=== PATIENT | male | born 1950 | race Caucasian/White ===

== ENCOUNTER 2024-02-05 16:53 | Inpatient (IN) | payer OTHER, SELFPAY ==
[2024-02-05] VITALS (11 sets, daily range): BP systolic 114–157; BP diastolic 51–71; BMI 29.7
--- NOTE | 2024-02-05 15:38 | CON.CAR ---
Addendum entered and electronically signed by Rashid Munroe MD 02/05/24 17:44:
74 year old male with h/o CAD, PCI, DM, HTN, hypercholesterolemia , esophageal ca, and prostate ca wh has had exertional SOB. Patient had increased symptoms and vomiting on Monday and presented to [facility] with NSTMI. Cath today with LM ostial and distal
disease with up to 80% stenosis and rCA 100% occlusion. EF normal. Patient had acute HF during cath. Given lasix and and IABP placed. Now transfer for CABG. Note last plavix given this morning
- continue supportive Tx. ASA, Heparin , IV NTG
- IABP ( site fine and good distal pulses)
- Plavix stopped
- additional assessment by CT surgery for CABG
Original Note:
Consultation
Consultation Request
Date/Time Consultation Requested: 02/05/2024 1645
Date/Time Consultation Performed: 02/05/2024 1645
Requesting Provider: Goran Menon PA-C
Performing Provider: MILTON Belcher for Dr. Munroe
Reason for Consultation: CAD with NSTEMI, left main disease
Medical History
-
Chief Complaint: Chest pain
History of Present Illness:
Joseph Villalta is a 74-year-old male (known to Dr. Degroot, his primary irrigation manager), with coronary artery disease (prior [place]), esophageal cancer, prostate cancer, hypertension, dyslipidemia, and type 2 diabetes mellitus who originally presented to
[facility] with chest pain. This had been ongoing for one week. He had associated nausea, vomiting and diaphoresis. It did not radiate. He was given clopidogrel and taken for cardiac catheterization. He was found to have severe left main disease. IABP
was placed. He has preserved LVEF. He was transferred to [facility] for CT surgery evaluation. He is currently chest pain free. He is not short of breath lying flat in bed.
Past Medical History
Past Medical History: CAD, Cancer (Esophageal), HTN, Hypercholesterolemia and NIDDM
Past Surgical History: Orthopedic and Tonsilectomy
Social History
Tobacco: Former Smoker
Alcohol: None
Drug: None
Personal:
Living: With Family
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
Family History
Family History: Reviewed & Not Pertinent (Father in 60s due to PE. Mother in 40s due to ovarian cancer.)
Review of Systems
-
History Source: Patient
All other systems: Negative unless noted
EENT: No Symptoms
Respiratory: No Symptoms
Cardiac: No Symptoms
Abdomen/GI: No Symptoms
Physical Exam
Physical Exam
General: Well Developed, Well Nourished, No Apparent Distress and Comfortable
HEENT: Normocephalic, Anicteric and Moist Mucous Membranes
Respiratory: Clear, Non Labored Respirations and Other (Supplemental oxygen)
Cardiac: S1/S2 and Other (IABP; peripheral pulses intact)
Breast: Deferred by me
GI: Soft, Non Tender, Non Distended and Normal Bowel Sounds
Rectal: Deferred by Provider
Genito-urinary: No Costovertebral Tender
Musculoskeletal: No Clubbing and No Cyanosis
Skin: Warm and Dry
Neuro: AO x 3
Hematologic/Lymphatic: No Lymphadenopathy
Psych: Calm
Impression / Plan
-
Background: 74M with CAD, NIDDM, hypertension, dyslipidemia, and esophageal cancer who presented to [facility]
Payroll Assistant: Dr. Degroot
CAD with NSTEMI
-Troponin peak 2164 (Troponin I)
-Continue ASA 81 mg daily and heparin drip, he was given clopidogrel
-Continue intravenous nitroglycerin
-Cardiac catheterization with 80% distal left main, ostial LAD 60%, ostial and proximal LCx 50%, RCA 100% with L to R collaterals
-IABP in place with palpable pulses
-CABG eval per CT surgery
Esophageal cancer, did not tolerate Keytruda, completed treatment last month at [facility]
Prior prostate cancer, reports esophageal cancer treatment also treated his prostate cancer
NIDDM, HbA1c pending
CVA, 2016
Dyslipidemia, update fasting lipid panel, goal LDL <55
Data Reviewed
-
Labs: Labs Reviewed by me
Old Records: Reviewed
--- NOTE | 2024-02-05 15:58 | HPS.HSE ---
Family Physician
-
Family Physician: Oliver Lynn
Chief Complaint
-
n/a
History of Present Illness
74 year old male with known CAD with stents (2003, 2006), presented to [facility] emergency room on 02/02 with severe chest pains. ECG with nonspecific ST�T wave changes. Initial troponin was 1912, second troponin was 2164. Patient was
admitted to ICU on IV heparin and nitro glycerin. Patient received prednisone prophylaxis for history of IV dye allergy. Cardiac Cath reported left main and left femoral #40mm IABP was placed for disease burden. Patient developed mild hypoxia
after procedure and received 40 mg of IV Lasix. A Cabezas catheter was placed and patient diuresed 1.6 L of urine. Patient transferred to [facility] on 02/04 via ambulance.
Cardiac Cath (R radial by Dr. Degroot @ [facility]) 02/05/24: report of 80% ostial left main and 100% RCA
TTE 02/03 ([facility]): EF 60-65%. No . trace-mild MR/TR
Medical History
Past Medical History
Past Medical History: Reports CAD (stents 2003, 2006), Cancer (esophageal C/A treated with chemo, immuno and bio therapy @ [place]. Prostate C/A-surveillance), CVA (R ocular 8 years ago-wears glasses), HTN, Hypercholesterolemia, NIDDM (on oral
meds) and [place] (NSTEMI)
Past Surgical History: Reports Orthopedic (left knee replacement and revision) and Other (R rotator cuff repair; B/L cataract extraction; loop recorder 5 years ago; left chest port-last accessed 2 weeks ago)
Social History
Tobacco: Non-smoker
Alcohol: Occasional
Drug: None
Personal:
Living: With Family
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
Family History
Family History: Not pertinent
Allergies / Home Medications
Allergies reflects when Allergies were last updated in [employer].
Home Medications with original date entered in [employer]
Allergy/Medication List:
IV Dye
Review of Systems
-
A 12 point ROS was completed and negative except as noted: No
Constitutional: Reports No Symptoms
EENT: Reports No Symptoms
Respiratory: Reports No Symptoms and Other (no chest radiation)
Cardiac: Reports Chest Pain (currently pain free)
Abdomen/GI: Reports No Symptoms
: Reports Cabezas (placed @ [facility] 02/04)
Musculoskeletal: Reports No Symptoms
Skin: Reports No Symptoms
Neurological: Reports No Symptoms
Endocrine: Reports No Symptoms
Hematologic/Lymphatic: Reports No Symptoms
Psych: Reports No Symptoms
Physical Exam
Physical Exam
General: Well Developed, Well Nourished and No Apparent Distress
HEENT: NormoCephalic, Anicteric, Moist mucous membranes, PERRLA, Nose Appears Normal, Ears Appear Normal and Oxygen (came from [facility] on NRB-O2 sat 96%)
Respiratory: Clear
Cardiac: S1/S2, Regular Rhythm and Other (left chest port; IABP left femoral artery on 1:1 with ECG trigger and adequate augmentation. Left femoral venous sheath with [place] @ 70cm. PA 35/19; CVP 14)
Breast: N/A
GI: Soft, Non Tender, Non Distended, Normal Bowel Sounds and No Hepatosplenomegaly
Rectal: Deferred by Provider
Genito-urinary: Cabezas (inserted 02/04 @ [facility])
Musculoskeletal: No Clubbing, No Cyanosis and No Edema
Skin: Warm and Dry
Neuro: AO x 3, No Motor Deficits and Nonfocal/grossly intact
Hematologic/Lymphatic: No Lymphadenopathy
Psych: Calm and Intact Judgment/Insight
Laboratory Results
-
labs from [facility] reviewed. labs from sent and results pending
Data Reviewed
-
Lab Data: Labs Reviewed by me and Discussed with Physician
Impression/Plan
-
IMPRESSION: 74 year old male transferred to [place] for CABG evaluation after presenting to [facility] ([facility]) on 02/02 with exertional shortness of breath increasing over the past week, and ruled in for NSTEMI. TTE reported normal LVEF
and cath reported ostial left main/3VCAD. Patient developed pulmonary edema in label press operator, requiring NRB to maintain O2 sats>94%, Lasix 40mg IV (with 1.6L U.O), left femoral IABP and Depe[place]. Last Plavix dose was this morning.
PLAN:
# NSTEMI/CAD w/prior stents
- last Plavix dose was this morning (02/04)>CABG date TBD
- routine pre-op testing ordered
- continue IV Heparin/NTG
- IABP 1:1
# T2DM
- hold Metformin 48 hours after cath
- Insulin correctional scale
- 1800cal diabetic diet
- check A1C
# Esophageal cancer
- completed chemo, immuno and biologic therapies at [place]
- no dysphagia per patient
# Prostate cancer
- active surveillance by urology
--- NOTE | 2024-02-05 17:30 | PTCARENOTE ---
Patient received from [facility] by EMS and DEPUTY HARBORMASTER. Patient transferred to bed from stretcher. Turned/repositioned. Old linen removed. Patient connected to the monitor. Lines leveled/zeroed. Heparin gtt received at 1720 units/hr. Nitro gtt received at
10mcgs/min. LFA IABP maintained and changed over to Datascope machine by RN and CNE. LFV sheath maintained. New tubing applied to transduce IABP, PA catheter, and CVP.
--- NOTE | 2024-02-05 18:11 | PTCARENOTE ---
Patient is alert and oriented x4, pleasant. Denies chest pain/discomfort. NSR. HR 80s-90s. BP via LFA IABP 123/52 with LUE BP cuff 115/62, correlating. LFA IABP maintained at 1:1. LFV sheath maintained with swan. PIV x2 maintained. Patient has an
unaccessed port on his LCW from receiving chemotherapy a month or two ago. Palpable pulses. Trace generalized edema. R radial TR band maintained - see post angiography flowsheet for details. Respiratory therapist switched patient over to 6L NC from
NRB. Oxygen saturation 96%. Patient has a moist non-productive occasional cough. Abdomen round, obese. Assist x2 to turn/reposition. Performing admissions screening and medication reconciliation.
[2024-02-05 18:13] LABS: B.E. 2.7 mmol/L; HCO3 25.9 mmol/L (21-28); Ionized Calcium 1.16 mMOL/L (1.15-1.33); O2 Saturation % 97.4 % (94-98); PCO2 34 mmHg (35-48); PO2 74 mmHg (83-108); Potassium 3.7 mMOL/L (3.5-5.1); Sodium 135 mMOL/L (136-145); pH 7.49 (7.35-7.45)
[2024-02-05 18:44] LABS: Glucose - Point of Care 290 mg/dl (70-99)
[2024-02-05 18:48] LABS: % Basophils 0.2 % (0-2); % Immature Granulocytes 0.4 % (0-0.5); % Lymphocytes 9.2 % (20.5-51.1); % Neutrophils 81.2 % (42.2-75.2); Absolute Immature Granulocytes 0.1 10^3/uL (0-0.05); Absolute Lymphocytes 1.5 10^3/uL (1.2-3.4); Absolute Monocytes 1.4 10^3/uL (0.1-0.6); Absolute Neutrophils 12.7 10^3/uL (1.4-6.5); Hematocrit 31.7 % (39.0-52.0); Hemoglobin 10.5 g/dL (13.0-18.0); Mean Corp Hgb Conc. 33.1 g/dL (33.0-37.0); Mean Corpuscular Hgb 29.2 pg (27.0-31.0); Mean Corpuscular Volume 88.1 fL (80.0-94.0); Mean Platelet Volume 9.7 fL (7.4-10.4); Nucleated Red Blood Cells % 0 % (-); Platelet Count 178 10^3/uL (130-400); Red Cell Dist. Width 13.8 % (11.5-14.5); White Blood Cell Count 15.7 10^3/uL (4.8-10.8)
[2024-02-05 19:25] LABS: ALT (SGPT) 24 U/L (0-50); AST (SGOT) 31 U/L (17-59); Albumin 3.2 g/dl (3.5-5.0); Alkaline Phosphatase 118 U/L (38-126); Blood Urea Nitrogen 14 mg/dl (9-20); Calcium 8.7 mg/dl (8.4-10.2); Carbon Dioxide 25 mmol/L (22-30); Chloride 103 mmol/L (98-107); Estimated Creatinine Clearance 92 ml/min; Glucose 225 mg/dl (70-99); Potassium 3.6 mmol/L (3.5-5.1); Sodium 138 mmol/L (135-145); Total Bilirubin 0.7 mg/dl (0.2-1.3); Total Protein 6.3 g/dl (6.3-8.2); eGFR > 60.00
[2024-02-05 19:27] LABS: INR 1.26; PT 15.6 Sec (11.4-14.6)
[2024-02-05 19:36] LABS: APTT > 200 Sec (23.4-35.0)
[2024-02-05] MEDS: KCL 40 MEQ PO (19:51)
[2024-02-05] MEDS: NOVOLOG FLEXPEN-MODERATE RESISTANCE 5 UNITS SC (19:53)
[2024-02-05] MEDS: SENOKOT-S PO (20:16)
--- NOTE | 2024-02-05 20:17 | PTCARENOTE ---
Received patient in stable condition. AAOx4, able to make needs known. SR on tele, IABP in place in L groin, 1:1, no alarms. Continued on nitro, denying CP. PTT came back greater than 200, PA notified and heparin held at 1950, will restart at 2150
per protocol. Cabezas in place, draining clear yellow urine. Patients family at bedside and updated on plan.
[2024-02-05 20:41] LABS: Magnesium 1.9 mg/dl (1.6-2.3)
[2024-02-05] MEDS: ZETIA 10 MG PO (21:28)
[2024-02-05] MEDS: TOPROL XL 100 MG PO (21:28)
[2024-02-05] MEDS: LIPITOR 40 MG PO (21:28)
[2024-02-05] MEDS: NIASPAN TIME RELEASE PO (21:29)
[2024-02-05] MEDS: NITROGLYCERIN PREMIX 250 IV (21:53)
[2024-02-05] MEDS: HEPARIN 25000 UNITS/250 ML IV (21:54)
[2024-02-06] VITALS (25 sets, daily range): BP systolic 90–136; BP diastolic 44–72
[2024-02-06] MEDS: MELATONIN 5 MG PO (00:13)
[2024-02-06] MEDS: TYLENOL 650 MG PO ×4 (00:13→17:58)
--- NOTE | 2024-02-06 00:22 | PTCARENOTE ---
Patient overall assessment unchanged from previous note. Continued on IABP at 1:1, no alarms. Heparin infusion running per protocol, next PTT due at 0400. Nitro infusion running at 5, discussed with PA if able to wean off d/t patient not having CP,
decided to leave on lower dose. TR band with all air removed but band left on d/t PTT being elevated per PA order. Patient having back pain r/t bed rest, given tylenol and melotonin PRN to assist with patient getting rest.
--- NOTE | 2024-02-06 01:11 | PTCARENOTE ---
TR band removed, 2x2 g[address]. positive pulses, no numbness or tingling reported by patient. will continue to assess and monitor.
--- NOTE | 2024-02-06 03:28 | W.PN.CT ---
Today's Communication / Plan
-
Plan:
-No major issues overnight. Hemodynamically and neurologically intact
-Maintain IABP @ 1:1, monitor site for bleed/hematoma
-Maintain bed rest
-Maintain buckner catheter
-Cont. current meds (Heparin gtt, NTG gtt, Toprol XL, Lipitor, Zetia)
-Metformin is on hold given recent cath
-Consider Lasix, pro-BNP 1819, 2+ LE pitting edema
-Replete K, 3.6
-Plavix washout, last dose AM of 02/05/24
-Ongoing preop workup
-For CABG following Plavix washout
Assessment / Plan
-
Assessment:
-Multivessel CAD (including occluded RCA, 80% ostial/distal LM)
-Hx CAD S/P PCI with stents (2003, 2006)
-NSTEMI @ [facility] (peak trop 2164)
-[place]
-Brilinta washout (Last dose AM of 02/05/24)
-S/P IABP @ [facility]
-Acute diastolic CHF
-LVEF 60-65% per TTE 10/07/22 @ [facility]
-No significant valvular disease
-Hx CVA (2015)
-HTN
-Hyperlipidemia
-T2DM (A1C pending)
-Class 1 obesity (BMI 30)
-Esophageal Ca (completed chemo 12/2023, denies dysphagia)
-Prostate Ca (under surveillance)
-Former tobacco use (1.5 pk/day x 25 yrs; quit 30 yrs ago)
-LE 2+ pitting edema (states post chemo therapy)
-Ambulatory dysfunction post chemotherapy
-S/P Left teena cath
-S/P L TKA with revision
-S/P R rotator cuff repair
-S/P B/L cataracts
-S/p Loop recorder (2019)
Discussed patient care with: Cardiology, Nursing, Respiratory Therapy, Pharmacy and Care Team
Subjective
-
Date of Service: February 06, 2024
Pt denies chest pain overnight, currently on 5 mcg of NTG gtt
Objective Data
-
Lab Results
02/05/24 18:39
02/05/24 18:39
PT 15.6 Sec (11.4-14.6) H 02/05/24 18:39
INR 1.26 02/05/24 18:39
APTT > 200 Sec (23.4-35.0) H* 02/05/24 18:39
Vital Signs
Vital Signs
Temp Pulse Resp BP Pulse Ox
97.8 F 84 18 102/66 94
02/06/24 03:00 02/06/24 03:00 02/06/24 03:00 02/06/24 03:00 02/06/24 03:00
CT Intake/Output/Weight
02/05/24 02/05/24 02/06/24
06:59 18:59 06:59
Intake Total 28.7 / 238.4 209.7 / 238.4
Output Total 800 / 1825 1025 / 1825
Balance -771.3 / -1586.6 -815.3 / -1586.6
SaO2: 94 (4L)
Physical Exam
-
General: Awake, Oriented and AOx3
Cardiovascular: Regular rate & rhythm, No Murmurs, No Rub (has IABP @ 1:1) and No Gallop
Respiratory: Decreased Breath Sounds
Incision: Clean, Dry, Intact and Dressing Intact
Extremities: Edema +2 (LE > on R)
Data Reviewed
-
Lab Results: Results Reviewed
Medications: Active Meds Reviewed
Chest X-Ray: Report Reviewed and Image Reviewed
ECG: Report Reviewed and Image Reviewed
[2024-02-06 04:03] LABS: Hematocrit 29.3 % (39.0-52.0); Hemoglobin 9.4 g/dL (13.0-18.0); Mean Corp Hgb Conc. 32.1 g/dL (33.0-37.0); Mean Corpuscular Hgb 28.8 pg (27.0-31.0); Mean Corpuscular Volume 89.9 fL (80.0-94.0); Mean Platelet Volume 9.4 fL (7.4-10.4); Platelet Count 146 10^3/uL (130-400); Red Blood Cell Count 3.26 10^6/uL (4.70-6.10); White Blood Cell Count 11.4 10^3/uL (4.8-10.8)
--- NOTE | 2024-02-06 04:10 | PTCARENOTE ---
Patient overall status unchanged from previous assessment. Patient continued on IABP, 1:1. AM labs sent. Heparin infusion continuing to run per protocol, awaiting PTT results from 0400. Patient maintaining extremity. CHG complete. able to make needs
known.
[2024-02-06 04:15] LABS: APTT 45.8 Sec (23.4-35.0)
[2024-02-06 04:35] LABS: Blood Urea Nitrogen 18 mg/dl (9-20); Calcium 8.3 mg/dl (8.4-10.2); Carbon Dioxide 26 mmol/L (22-30); Chloride 105 mmol/L (98-107); Estimated Creatinine Clearance 92 ml/min; Glucose 211 mg/dl (70-99); Magnesium 1.9 mg/dl (1.6-2.3); Potassium 3.6 mmol/L (3.5-5.1); Sodium 136 mmol/L (135-145); eGFR > 60.00
[2024-02-06 04:38] LABS: NT-proBNP 1820 pg/ml
[2024-02-06] MEDS: KCL 40 MEQ PO (05:10)
--- NOTE | 2024-02-06 06:08 | PTCARENOTE ---
PTT back at 45.8, per protocol heparin up to 1720 u/hr. PTT placed for 1030
--- NOTE | 2024-02-06 07:48 | W.PN.CD ---
Today's Communication / Plan
-
Wean IABP and nitro.
Hold clopidogrel.
CABG planning.
Impression / Plan
-
Impression/Plan: 74 y/o male with HTN, HLD, NIDDM, treated esophageal CA and known CAD with prior PCI transferred from [facility] with NSTEMI after coronary angiography demonstrated surgical disease.
#CAD with NSTEMI
-Troponin I peaked at 2164 at [facility].
-Continue ASA 81 mg daily and heparin drip.
-Last dose of clopidogrel on 02/05/2024.
-Cardiac catheterization with 80% distal left main, ostial LAD 60%, ostial and proximal LCx 50%, RCA 100% with L to R collaterals.
-CABG eval per CT surgery.
-Wean IABP: set 2:1 for one hour, if tolerates set 3:1 for one hour. If he tolerates 3:1, stop heparin gtt and put IABP back to 1:1. When PTT is normal, pull IABP. When hemostasis achieved, restart heparin gtt without bolus.
#Flash pulmonary edema
-Acute, occurred during catheterization yesterday.
-Started on IABP and diuresis.
-Drewsey-Johny catheter placed.
-Requiring 4LNC.
-CI 2.37, PA 27/7.
-Titrate IABP as above.
#Esophageal cancer
-Did not tolerate pembrolizumab.
-Completed treatment last month at [facility].
#Prior prostate cancer
-Reports esophageal cancer treatment also treated his prostate cancer.
#NIDDM
-Chronic, stable.
-HbA1c = pending.
#Dyslipidemia
-Chronic, stable.
-update fasting lipid panel, goal LDL <55
#CVA, 2016
Subjective/Interval History:
Transferred yesterday.
Nitro being weaned.
Hbg down to 9.4 (from 10.5).
Payroll Master: Dr. Colunga
DATA:
TTE, 10/07/2022:
CONCLUSIONS
1. Normal LV function and EF 60-65%. Stage I diastolic dysfunction.
2. Normal RV function.
3. Trace AR.
Physical Exam
Vital Signs/Labs
Vital Signs
Temp Pulse Resp BP Pulse Ox
36.6 C 72 16 118/46 98
02/06/24 07:00 02/06/24 07:05 02/06/24 07:05 02/06/24 07:05 02/06/24 07:05
02/04/24 02/05/24 02/06/24
11:59 11:59 11:59
Actual Weight 89.6 kg
02/06/24 03:55
02/06/24 03:55
PT 15.6 Sec (11.4-14.6) H 02/05/24 18:39
INR 1.26 02/05/24 18:39
APTT 45.8 Sec (23.4-35.0) H 02/06/24 03:55
Magnesium 1.9 mg/dl (1.6-2.3) 02/06/24 03:55
02/06/24
03:55
Ayw-B-Kjdlneoereo Pept 1820
Physical Exam
Constitutional: No acute distress and Comfortable
EENT: Anicteric and Moist mucous membranes
Cardiovascular: Rhythm & rate is regular, Pedal edema is absent, JVD pressure is normal, S1S2 is normal and Murmur/rub/gallop absent
Respiratory: Respiratory effort normal, Lungs clear to auscul., Wheeze Absent, Crackles Absent and Rhonchi Absent
GI: Soft, Distention absent, Flat, Non tender and Normal bowel sounds
Neuro/Psych: AO x 3
Other: Cath Site (Left IABP access site is C/D/I.)
Data Reviewed
-
Date of Service: February 06, 2024
Medical Decision Making: External Notes, Reviewed Test Results, Independent Historian Assessment, Test Interpretation and Review of Case with other Provider
EKG: Tracing Personally Visualized and interpreted and Report Reviewed by me
Echo: Report Reviewed by me
X-Ray/CT/US/MRI/NUC/PET: Image Personally Visualized and interpreted and Report Reviewed by me
Medical Tests (PFT, Pathology etc): Image Personally Visualized and interpreted and Report Reviewed by me
Labs: Labs Reviewed by me
Old Records: Reviewed
--- NOTE | 2024-02-06 08:00 | PTCARENOTE ---
pt received from previous RN, oriented, bedrest. pt c/o chronic lower back pain, received PRN Tylenol. SR on the monitor, HR 60-70s. PAP 20-30s/10s, CVP ~3-6. CI >2. LFA IABP 1:1, max augmentation. SBP 100-110s. pt denies CP. weakly palpable DP
pulses, palpable radial pulses. pt on 4LNC, 97-100% POX. lungs clear. pt abdomen s/n, denies n/v. diet tolerated well. Cabezas in place, clear yellow urine. pt states had BM last night. LFA site old drainage, no s/s of active bleeding or hematoma. R
radial site c/d/i. LFA and LFV sheath w/ swan maintained. PIV x2. heparin gtt running per protocol. nitro gtt @5mcg/min. see worklist for VS, I&O, and assessment.
[2024-02-06 09:22] LABS: Glycohemoglobin (HgbA1c) 7.2 % (4.0-5.6)
[2024-02-06 09:57] LABS: Glucose - Point of Care 226 mg/dl (70-99)
[2024-02-06] MEDS: MAGNESIUM OXIDE 500 MG PO (09:57)
[2024-02-06] MEDS: AMARYL 2 MG PO (09:57)
[2024-02-06] MEDS: PROTONIX 40 MG PO (09:57)
[2024-02-06] MEDS: SENOKOT-S PO ×2 (09:58→19:35)
[2024-02-06] MEDS: NOVOLOG FLEXPEN-MODERATE RESISTANCE 3 UNITS SC (09:58)
--- NOTE | 2024-02-06 10:26 | PTCARENOTE ---
pt transported to CT scan w/ PCT and CHECK CLERK, tolerated well. IABP placed to 1:2 per orders, no c/o CP.
[2024-02-06] MEDS: NIASPAN TIME RELEASE 500 MG PO ×2 (10:43→20:02)
--- NOTE | 2024-02-06 10:43 | CM ---
Chart reviewed. Patient is independent of ADLS, lives with his in a [address], [facility], does not ambulate with any DME but has a rolling walker and SPC. Patient being worked up for a CABG, received a dose of plavix on 02/04. CM to do preoperative
teaching when is available, too. CM to follow
[2024-02-06 11:22] LABS: APTT 84.3 Sec (23.4-35.0)
[2024-02-06] MEDS: HEPARIN 25000 UNITS/250 ML IV (12:06)
--- NOTE | 2024-02-06 13:00 | PTCARENOTE ---
pt placed back on IABP 1:1, heparin gtt on hold per PAINTING DEPARTMENT SUPERVISOR. at bedside and updated.
[2024-02-06] MEDS: NOVOLOG FLEXPEN-MODERATE RESISTANCE SC (13:26)
[2024-02-06 13:30] LABS: Glucose - Point of Care 225 mg/dl (70-99)
--- NOTE | 2024-02-06 14:25 | W.PN.UPDATE ---
Update Note
Progress Note Update
STS RISK SCORE
Procedure Type:�Isolated CABG
PERIOPERATIVE OUTCOME ESTIMATE %
Operative Mortality 2.28%
Morbidity & Mortality 14%
Stroke 1.05%
Renal Failure 1.84%
Reoperation 2.72%
Prolonged Ventilation 9.53%
Deep Sternal Wound Infection 0.223%
Long Hospital Stay (>14 days) 9.07%
Short Hospital Stay (<6 days)* 25.5%
Clinical Summary
Planned Surgery: Isolated CABG, Urgent, First cardiovascular surgery
Demographics: 74 year old, White, male, 88.6kg, 177.8cm, BMI: 28 kg/m�
Lab Values: Creatinine: 0.7 mg/dL, Hematocrit: 29.3%, WBC Count: 11.4 10�/�L, Platelet Count: 812879 cells/�L
PreOp Medications: Oral diabetes control
Substance Abuse: Never smoker, Alcohol use: 2-7 drinks/week
Risk Factors / Comorbidities: Diabetes Mellitus , Cancer <=5 yrs, Hypertension
Cardiac Status: NYHA Class II, Preop IABP, Ejection Fraction = 60%
Coronary Artery Disease: 3 vessels diseased, Left Main Stenosis >=50%, Non-ST Elevation ID, ID: 1 to 7 Days
Valve Disease: Mild MR, Mild TR
Arrhythmia: Recent A-fib
Prev. Cardiac Interv: Previous PCI: Not at this facility
--- NOTE | 2024-02-06 16:11 | W.PN.UPDATE ---
Update Note
Progress Note Update
Heparin infusion held since 1300. PTT was 29 sec from 1500. IABP console off and left femoral IABP removed (CPT Code 32628) without difficulty @ 1545. Manual pressure applied x 15 minutes. +Left DP signal by Doppler. Femstop then applied with
pressure to 128mmHg. Left DP signal present by Doppler. Femstop pressure reduced by 10mmHg q 15min. Maintain bedrest as left femoral venous sheath with [place] intact. Resume Heparin infusion without bolus @ 1800 at prior therapeutic rate of 1720u/h.
--- NOTE | 2024-02-06 16:32 | PTCARENOTE ---
pt VSS, no changes in assessment. RAIL OPERATOR aware of 1500 PTT result. RAIL OPERATOR and PA at bedside for IABP removal, dc'd @1545, MP x15min, fem stop applied by RAIL OPERATOR. orders followed. LFV sheath remains in place. +doppler PT and DP pulses. heparin gtt remains on hold
per orders.
--- NOTE | 2024-02-06 17:40 | W.PN.UPDATE ---
Update Note
Progress Note Update
Left femoral Qulin and venous sheath removed without difficulty. Manual pressure applied x 20 minutes. Will resume Heparin infusion @ prior rate of 1720u/h without bolus @ 1800.
[2024-02-06 17:57] LABS: Glucose - Point of Care 193 mg/dl (70-99)
[2024-02-06] MEDS: LIPITOR 40 MG PO (17:57)
[2024-02-06] MEDS: ZETIA 10 MG PO (17:57)
[2024-02-06] MEDS: TOPROL XL 100 MG PO (17:58)
[2024-02-06] MEDS: NOVOLOG FLEXPEN-MODERATE RESISTANCE 1 UNITS SC (17:58)
--- NOTE | 2024-02-06 18:13 | PTCARENOTE ---
fem stop dc'd per BREEDER HEN SERVICE TECHNICIAN, LFV swan and sheath dc'd by BREEDER HEN SERVICE TECHNICIAN, MP x20min. dressing c/d/i. +Doppler pedal pulses. heparin gtt restarted @1800 at ordered rate. daughter at bedside and updated.
--- NOTE | 2024-02-06 19:23 | PTCARENOTE ---
Patient received in stable condition. AAOx4. SR on tele. on 2 L NC. Bed rest until 193 post IABP and venous sheath removal. Patient able to make needs known. Heparin infusing per protocol. Nitro on hold in case patient develops CP.
[2024-02-07] VITALS (37 sets, daily range): BP systolic 95–139; BP diastolic 52–81; PULSE 90–93; O2SAT 98; BMI 29.6
[2024-02-07 00:40] LABS: Hematocrit 29.6 % (39.0-52.0); Hemoglobin 9.7 g/dL (13.0-18.0); Mean Corp Hgb Conc. 32.8 g/dL (33.0-37.0); Mean Corpuscular Hgb 29.8 pg (27.0-31.0); Mean Corpuscular Volume 90.8 fL (80.0-94.0); Platelet Count 125 10^3/uL (130-400); Red Blood Cell Count 3.26 10^6/uL (4.70-6.10); Red Cell Dist. Width 14.1 % (11.5-14.5); White Blood Cell Count 8.1 10^3/uL (4.8-10.8)
[2024-02-07 00:50] LABS: Blood Urea Nitrogen 15 mg/dl (9-20); Calcium 8.3 mg/dl (8.4-10.2); Carbon Dioxide 26 mmol/L (22-30); Chloride 104 mmol/L (98-107); Estimated Creatinine Clearance 121 ml/min; Glucose 203 mg/dl (70-99); Magnesium 2.2 mg/dl (1.6-2.3); Sodium 136 mmol/L (135-145); eGFR > 60.00
[2024-02-07 02:49] LABS: APTT 70.1 Sec (23.4-35.0)
--- NOTE | 2024-02-07 03:01 | PTCARENOTE ---
Patient overall status unchanged. PTT resulted during downtime, was 70.3, per protocol up titrated to 1820 u/hr from 1720 u/hr.
--- NOTE | 2024-02-07 05:10 | W.PN.CT ---
Documented by User: Jesse Gudino PA-C 02/07/24 06:04
Today's Communication / Plan
-
Plan:
-No major issues overnight. Hemodynamically and neurologically intact
-IABP d/c'd yesterday 02/06/24 without incident, groin C/D/I without significant hematoma/ecchymosis. Distal DP pulses are palpable
-Maintain buckner catheter until able to get out of bed, may need to keep for OR
-Currently off NTG gtt but remains on Heparin gtt
-Cont. current meds (Heparin gtt, NTG gtt, Toprol XL, Lipitor, Zetia)
-Consider resumption of Metformin
-Consider Lasix, pro-BNP 1819, 1+ LE pitting edema, if BP permits
-Plavix washout, last dose AM of 02/05/24
-Ongoing preop workup
-For CABG following Plavix washout by Dr. George on Thursday 02/08
Assessment / Plan
-
Assessment:
-Multivessel CAD (including occluded RCA, 80% ostial/distal LM)
-Hx CAD S/P PCI with stents (2003, 2006)
-NSTEMI @ [facility] (peak trop 2164)
-[place]
-Brilinta washout (Last dose AM of 02/05/24)
-S/P IABP @ [facility]
-Acute diastolic CHF
-LVEF 60-65% per TTE 10/07/22 @ [facility]
-No significant valvular disease
-Hx CVA (2015)
-HTN
-Hyperlipidemia
-T2DM (A1C pending)
-Class 1 obesity (BMI 30)
-Esophageal Ca (completed chemo 12/2023, denies dysphagia)
-Prostate Ca (under surveillance)
-Former tobacco use (1.5 pk/day x 25 yrs; quit 30 yrs ago)
-LE 2+ pitting edema (states post chemo therapy)
-Ambulatory dysfunction post chemotherapy
-S/P Left teena cath
-S/P L TKA with revision
-S/P R rotator cuff repair
-S/P B/L cataracts
-S/p Loop recorder (2019)
Discussed patient care with: Cardiology, Nursing, Respiratory Therapy, Pharmacy and Care Team
Subjective
-
Date of Service: February 07, 2024
Pt denies CP overnight
Objective Data
-
Lab Results
02/07/24 00:20
02/07/24 00:20
PT 15.6 Sec (11.4-14.6) H 02/05/24 18:39
INR 1.26 02/05/24 18:39
APTT 70.1 Sec (23.4-35.0) H 02/07/24 00:45
Vital Signs
Vital Signs
Temp Pulse Resp BP Pulse Ox
98.3 F 71 14 112/56 98
02/07/24 04:00 02/07/24 04:00 02/07/24 04:00 02/07/24 03:00 02/07/24 04:00
CT Intake/Output/Weight
02/06/24 02/06/24 02/07/24
06:59 18:59 06:59
Intake Total 291.7 / 2051.2 1903.2 / 2128.2 225.0 / 2128.2
Output Total 1325 / 2275 1825 / 2800 975 / 2800
Balance -1033.3 / -223.8 78.2 / -671.8 -750.0 / -671.8
SaO2: 98 (2L)
Physical Exam
-
General: Awake, Oriented and AOx3
Cardiovascular: Regular rate & rhythm, No Murmurs, No Rub and No Gallop
Respiratory: Decreased Breath Sounds
Incision: Clean, Dry, Intact and Dressing Intact
Extremities: Edema +1
Data Reviewed
-
Lab Results: Results Reviewed
Medications: Active Meds Reviewed
Chest X-Ray: Report Reviewed and Image Reviewed
ECG: Report Reviewed and Image Reviewed

Documented by User: MILTON Shepherd 02/07/24 13:12
Assessment / Plan
-
Assessment:
-Multivessel CAD (including occluded RCA, 80% ostial/distal LM)
-Hx CAD S/P PCI with stents (2003, 2006)
-NSTEMI @ [facility] (peak trop 2164)
-[place]
-Brilinta washout (Last dose AM of 02/05/24)
-S/P IABP @ [facility]
- Acute hypoxic respiratory failure; prior to admission, now resolved
-Acute diastolic CHF
-LVEF 60-65% per TTE 10/07/22 @ [facility]
-No significant valvular disease
-Hx CVA (2015)
-HTN
-Hyperlipidemia
-T2DM (A1C pending)
-Class 1 obesity (BMI 30)
-Esophageal Ca (completed chemo 12/2023, denies dysphagia)
- Moderate Protein Calorie Malnutrition
-Prostate Ca (under surveillance)
-Former tobacco use (1.5 pk/day x 25 yrs; quit 30 yrs ago)
-LE 2+ pitting edema (states post chemo therapy)
-Ambulatory dysfunction post chemotherapy
-S/P Left teena cath
-S/P L TKA with revision
-S/P R rotator cuff repair
-S/P B/L cataracts
-S/p Loop recorder (2019)
[2024-02-07 08:18] LABS: Glucose - Point of Care 203 mg/dl (70-99)
[2024-02-07] MEDS: NIASPAN TIME RELEASE 500 MG PO ×2 (08:18→20:47)
[2024-02-07] MEDS: GLUCOPHAGE 1000 MG PO ×2 (08:18→17:02)
[2024-02-07] MEDS: MAGNESIUM OXIDE 500 MG PO (08:18)
[2024-02-07] MEDS: PROTONIX 40 MG PO (08:18)
[2024-02-07] MEDS: AMARYL 2 MG PO (08:18)
[2024-02-07] MEDS: NOVOLOG FLEXPEN-MODERATE RESISTANCE 3 UNITS SC ×2 (08:19→13:04)
[2024-02-07] MEDS: SENOKOT-S PO ×3 (08:20→20:49)
--- NOTE | 2024-02-07 08:30 | PTCARENOTE ---
pt received from previous RN, oriented, OOB in chair. SR on the monitor, 70-90s. pt denies CP. SBP 110s. weakly palpable pedal pulses verified by Doppler. pt on RA, 95-98% POX. pt abdomen s/n, denies n/v. diet tolerated well. Buckner in place,
draining clear yellow urine. buckner discontinued as ordered. L groin c/d/i, no s/s of bleeding or hematoma. R radial site c/d/i. PIV x2. heparin gtt running as ordered. see worklist for VS, I&O, and assessment.
[2024-02-07] MEDS: HEPARIN 25000 UNITS/250 ML IV ×2 (08:49→23:53)
[2024-02-07 09:08] LABS: APTT 89.9 Sec (23.4-35.0)
--- NOTE | 2024-02-07 09:55 | PTCARENOTE ---
LAC IV occluded, dc'd. pt placed back to bed x2 assist, weak gait.
--- NOTE | 2024-02-07 10:18 | PN.CDI ---
CDI
- -
CDI:
Physician Documentation Request
Admit Date: 02/05/24 16:[address] Surgery,
Clinical Indicators:
Patient transferred with NSTEMI with IABP in place.
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
02 requirements on admission:
02/05/24
17:34 02/05/24
20:00 02/05/24
20:00
Nasal Cannula flow liters per minute 6 6 6
02/05/24
21:00
Nasal Cannula flow liters per minute 6
Please clarify which of the following accurately represents the patient's respiratory status on admission:
Acute hypoxic respiratory failure; POA, now resolved
Hypoxia only
Other, please specify
Additional information for Respiratory Failure:
Recognized criteria for Respiratory Failure (Source: ACP Hospitalist Jul 2013)
ABGs: (1 or more) Symptoms Please indicate type if known
1. p)2 <60 or RA SPO2 <91% on RA 1. Tachypnea, SOB, dyspnea Hypoxic
2. pCO2 50 and pH <7.35 2. Use of accessory muscles Hypercapnic
3. pO2 decrease of pCO2 increase by 3. Pallor or cyanosis Hypoxic and Hypercapnic
10 mmHg from baseline if known 4. Anxiety or restlessness Unable to determine
5. Unable to speak in full sentences
Supplemental O2 of > 40% (5LPM) Intubation is not required
Use of terms such as suspected, likely, concern for, or probable (associated with a specific diagnosis that is being evaluated, monitored, or treated as if it exists) are acceptable and can be coded in the inpatient setting, when documented at the
time of discharge.
Thank you,
EMILIO Singer RN
CDI Specialist
available via tiger text
Please use your independent medical judgment in providing your response.
--- NOTE | 2024-02-07 10:37 | PN.CDI ---
CDI
- -
CDI:
Physician Documentation Request
Admit Date: 02/05/24 16:[address] Surgery,
Clinical Indicators:
Patient transferred with NSTEMI; PMH includes esophageal cancer,chemo completed 12/2023.
02/05 note/assessment: - 'This would reflect a 33 lb loss (14.3% wt change, ~7 months)-significant.'
-'...reporting a decrease in appetite especially during the first several months of chemo; would estimate <75% estimated energy needs for > 1 month.'
- 'Due to the wt loss and decreased intakes, pt meeting criteria for moderate protein/calorie malnutrition (ASPEN/AND guidelines, chronic illness). '
Based on the information, which of the following most accurately represents the patient's nutritional status?
Moderate Protein Calorie Malnutrition
Mild Protein Calorie Malnutrition
Other (please specify)
[place] Criteria (ACP Hospitalist 2017)
2 or more criteria must be present for either
non severe or severe malnutrition
Note that the criteria differs related to the
presence of an acute or chronic illness
Acute Illness Chronic Illness
Energy Intake Non Severe: <75% for >7 days Non Severe: <75% for >1 month
Severe: <50% for >5 days Severe: <75% for >1 month
Weight Loss Non Severe: 1-2% over 1 week Non Severe: 5% over 1 month
5% over 1 month 7.5% over 3 months
7.5% over 3 months 10% over 6 months
1 year N/A 20% over 1 year
Severe: >2% over 1 week Severe: >5% over 1 month
>5% over 1 month >7.5% over 3 months
>7.5% over 3 months >10% over 6 months
1 year N/A >20% over 1 year
Body Fat Non Severe: Mild Decrease Non Severe: Mild Loss
Severe: Moderate Decrease Severe: Severe Loss
Muscle Mass Non Severe: Mild Decrease Non Severe: Mild Loss
Severe: Moderate Decrease Severe: Severe Loss
Fluid Accumulation Non Severe: Mild Accumulation Non Severe: Mild Accumulation
Severe: Moderate to severe Severe: Moderate to severe
accumulation accumulation
Reduced Barrel Dedenting Machine Operator Strength Non Severe: N/A Non Severe: N/A
Severe: Measurably reduced Severe: Measurably reduced
Additional criteria that can be used to Determine if Mild or Moderate Malnutrition (Merck Manual 2018)
Mild Moderate Severe
Albumin gm/dl <3.0 gm/dl <2.5 gm/dl <2.0 gm/dl
Pre Albumin mg/dl <15 gm/dl <10 mg/dl <5.0 mg/dl
BMI <18.5 <17 <16
Use of terms such as suspected, likely, concern for, or probable (associated with a specific diagnosis that is being evaluated, monitored, or treated as if it exists) are acceptable and can be coded in the inpatient setting, when documented at the
time of discharge.
Thank you,
EMILIO Singer RN
CDI Specialist
available via tiger text
Please use your independent medical judgment in providing your response.
[2024-02-07] MEDS: NSS 500 IV (10:46)
--- NOTE | 2024-02-07 10:59 | W.PN.CD ---
Today's Communication / Plan
-
CABG planning.
Impression / Plan
-
Impression/Plan: 74 y/o male with HTN, HLD, NIDDM, treated esophageal CA and known CAD with prior PCI transferred from [facility] with NSTEMI after coronary angiography demonstrated surgical disease which led to flash pulmonary edema.
#CAD with NSTEMI
-Troponin I peaked at 2164 at [facility].
-Continue ASA 81 mg daily and heparin drip.
-Last dose of clopidogrel on 02/05/2024.
-Cardiac catheterization with 80% distal left main, ostial LAD 60%, ostial and proximal LCx 50%, RCA 100% with L to R collaterals.
-CABG on 02/09/2024 (Dr. George).
#Flash pulmonary edema
-Acute, occurred during catheterization yesterday.
-Resolved.
#Esophageal cancer
-Did not tolerate pembrolizumab.
-Completed treatment last month at [facility].
#Prior prostate cancer
-Reports esophageal cancer treatment also treated his prostate cancer.
#NIDDM
-Chronic, stable.
-HbA1c = pending.
#Dyslipidemia
-Chronic, stable.
-update fasting lipid panel, goal LDL <55
#CVA, 2016
Subjective/Interval History:
Weight down 1.4 kg.
IABP and [place]-Johny catheter discontinued yesterday.
He feels well.
Airplane Patroller: Dr. Colunga
DATA:
TTE, 02/06/2024:
CONCLUSIONS
Normal left ventricular size, wall thickness and systolic function.
No regional wall motion abnormalities are seen.
LV ejection fraction is 55-60% by visual assessment.
Normal right ventricular size and function.
Mild aortic regurgitation.
Compared to prior from October 07, 2022, aortic regurgitation is mild from
trace.
Carotid Duplex US, 02/06/2024:
IMPRESSION: Minimal carotid bulb plaque on each side, measurements suggestive of less than 50% stenosis on each side as per modified Society of Radiologists in Ultrasound consensus criteria (IAC carotid criteria white paper, 2020).
Physical Exam
Vital Signs/Labs
Vital Signs
Temp Pulse Resp BP Pulse Ox
36.8 C 78 25 111/81 95
02/07/24 08:00 02/07/24 10:00 02/07/24 08:30 02/07/24 08:00 02/07/24 09:00
02/05/24 02/06/24 02/07/24
11:59 11:59 11:59
Actual Weight 89.6 kg 88.2 kg
02/07/24 00:20
02/07/24 00:20
PT 15.6 Sec (11.4-14.6) H 02/05/24 18:39
INR 1.26 02/05/24 18:39
APTT 89.9 Sec (23.4-35.0) H 02/07/24 08:45
Magnesium 2.2 mg/dl (1.6-2.3) 02/07/24 00:20
02/06/24
03:55
Vfo-U-Jvzyjshwhjc Pept 1820
Physical Exam
Constitutional: No acute distress and Comfortable
EENT: Anicteric and Moist mucous membranes
Cardiovascular: Rhythm & rate is regular, Pedal edema is absent, JVD pressure is normal, S1S2 is normal and Murmur/rub/gallop absent
Respiratory: Respiratory effort normal, Lungs clear to auscul., Wheeze Absent, Crackles Absent and Rhonchi Absent
GI: Soft, Distention absent, Flat, Non tender and Normal bowel sounds
Neuro/Psych: AO x 3
Other: Cath Site (Left femoral access sites are C/D/I.)
Data Reviewed
-
Date of Service: February 07, 2024
Medical Decision Making: Reviewed Test Results, Independent Historian Assessment and Test Interpretation
EKG: Tracing Personally Visualized and interpreted and Report Reviewed by me
Echo: Tracing Personally Visualized and interpreted and Report Reviewed by me
X-Ray/CT/US/MRI/NUC/PET: Image Personally Visualized and interpreted and Report Reviewed by me
Medical Tests (PFT, Pathology etc): Image Personally Visualized and interpreted and Report Reviewed by me
Labs: Labs Reviewed by me
Old Records: Reviewed
--- NOTE | 2024-02-07 11:58 | PTCARENOTE ---
pt VSS, no changes in assessment. pt OOB in the chair w/ PT/OT. oral hygiene provided. RN reminded patient to ask to bring copy of Advance Directive in. no c/o CP or SOB.
[2024-02-07 13:06] LABS: Glucose - Point of Care 214 mg/dl (70-99)
--- NOTE | 2024-02-07 13:33 | CM ---
Chart reviewed. Preoperative and postoperative teaching done with the patient and his , along with restrictions and showering instructions. Patient is agreeable to a visit by CT Transitional RN. Plan is for the patient to return home with CT
Transitional RN. CM to follow
[2024-02-07] MEDS: NITROSTAT (SUBLINGUAL) 0.400000000000000022 MG SL ×3 (14:36→14:55)
[2024-02-07] MEDS: LOPRESSOR 5 MG IV (14:44)
[2024-02-07] MEDS: MAGNESIUM SULFATE 100 IV (14:47)
[2024-02-07] MEDS: NITROGLYCERIN PREMIX 250 IV (14:50)
--- NOTE | 2024-02-07 15:00 | RESPNOTE ---
Bedside PFT testing held at this time per CVICU PA due to patient experiencing chest pain. Will re-attempt on 02/07.
--- NOTE | 2024-02-07 15:00 | PTCARENOTE ---
@~1430, pt pt c/o CP 2/, diaphoretic, nauseous. PAPER CONE DRYING MACHINE OPERATOR aware, EKG performed. PAPER CONE DRYING MACHINE OPERATOR, Dr. George and Dr. Taveras aware of EKG. SL Nitro given x3 as ordered w/ relief, nitro gtt restarted as ordered. @~1439, pt went into afib, HR ~150s, Lopressor 5mg IVP and
Mg 1g rider given, pt converted to ST @1444. lab work drawn. daughter updated over phone.
--- NOTE | 2024-02-07 15:11 | W.PN.UPDATE ---
Update Note
Progress Note Update
Called to see patient for c/o chest pressure 2/10. NTG SL x 3 & NTG infusion resumed @ 5. HR increased to 156 (AF). Lopressor 5mg IV, Magnesium 1Gm IV. Converted to ST @ 109. Evening Toprol dose increased to home dose of 200mg q PM. EKG with
inferolateral ST depressions reported to Rehana Taveras and Ariel. TEG profile drawn>platelets 12% inhibited. Patient pain free after heart rhythm/rate controlled.
[2024-02-07 15:21] LABS: APTT 97.6 Sec (23.4-35.0)
[2024-02-07 16:59] LABS: Glucose - Point of Care 289 mg/dl (70-99)
--- NOTE | 2024-02-07 17:00 | PTCARENOTE ---
pt washed w/ CHG wipes, gown and linens changed, face washed.
[2024-02-07] MEDS: NOVOLOG FLEXPEN-MODERATE RESISTANCE 5 UNITS SC (17:02)
[2024-02-07] MEDS: JANUVIA 100 MG PO (17:02)
[2024-02-07] MEDS: TOPROL XL 200 MG PO (17:02)
[2024-02-07] MEDS: ZETIA 10 MG PO (17:04)
[2024-02-07] MEDS: GLUCOPHAGE XR EXTENDED RELEASE 1000 MG PO (17:05)
[2024-02-07] MEDS: LIPITOR 40 MG PO (18:13)
[2024-02-07] MEDS: TYLENOL 650 MG PO (20:46)
--- NOTE | 2024-02-07 22:00 | PTCARENOTE ---
Assumed pt care. Pt resting in bed at time of assessment. AAO x 4, c/o intermittent lower back pain - reports chronic, PRN tylenol administered with alleviation. Pt on 2L NC, POS 99-100%, denies SOB/orthopnea, BS clear/equal anteriorly. NSR on
monitor, denies CP, Nitro gtt con't, distal pulses palpable, heart tones normal. Trace LE edema present b/l. BS audible, denies n/v. Pt reported incontinence/spill of urinal, CHG cloth bath performed, pt turned for linen change - tolerated activity
without CP. Pt voided 400 mL in urinal later in evening without issue. L groin site dressing CDI, site ecchymotic/tender to palpation. L subclavian port remains with KVO. PIV x 1 con't with Heparin & nitro gtt. See NOV.
[2024-02-08] VITALS (22 sets, daily range): BP systolic 96–136; BP diastolic 47–66; PULSE 83; O2SAT 98; BMI 29.6
--- NOTE | 2024-02-08 01:00 | PTCARENOTE ---
Pt sleeping throughout night. Voiding in urinal 400-600 mL. Remains on heparin & nitro gtt. No other changes.
--- NOTE | 2024-02-08 04:33 | PTCARENOTE ---
VSS. Pt turned & repositioned. Labs obtained & sent. No other changes.
[2024-02-08 04:45] LABS: Hematocrit 28.5 % (39.0-52.0); Hemoglobin 9.1 g/dL (13.0-18.0); Mean Corp Hgb Conc. 31.9 g/dL (33.0-37.0); Mean Corpuscular Hgb 29.2 pg (27.0-31.0); Mean Corpuscular Volume 91.3 fL (80.0-94.0); Mean Platelet Volume 10.5 fL (7.4-10.4); Platelet Count 125 10^3/uL (130-400); Red Blood Cell Count 3.12 10^6/uL (4.70-6.10); Red Cell Dist. Width 14.3 % (11.5-14.5); White Blood Cell Count 7.9 10^3/uL (4.8-10.8)
[2024-02-08 04:52] LABS: Urine Albumin Negative (Neg - Trace); Urine Bilirubin Negative (Negative); Urine Character Clear (Clear); Urine Color Yellow; Urine Glucose Negative (Negative); Urine Ketone Negative (Negative); Urine Leukocyte Negative (Negative); Urine Nitrite Negative (Negative); Urine Occult Blood Negative (Negative); Urine Urobilinogen Negative (Neg - 1+)
[2024-02-08 04:56] LABS: APTT 117.7 Sec (23.4-35.0)
[2024-02-08 05:34] LABS: Blood Urea Nitrogen 12 mg/dl (9-20); Calcium 8.4 mg/dl (8.4-10.2); Carbon Dioxide 29 mmol/L (22-30); Chloride 103 mmol/L (98-107); Estimated Creatinine Clearance 92 ml/min; Glucose 134 mg/dl (70-99); Magnesium 2.1 mg/dl (1.6-2.3); Potassium 3.6 mmol/L (3.5-5.1); Sodium 138 mmol/L (135-145); eGFR > 60.00
--- NOTE | 2024-02-08 05:43 | W.PN.CT ---
Today's Communication / Plan
-
-no issues overnight, no complaints, in nsr. Drips: Heparin 1720, Nitro 5
-Paroxysmal a-fib with RVR 150s on 02/07/24 with CP and ischemia on ECG- tx with sl Nitro x3 and drip, iv Lopressor, iv Mg - converted to nsr with resolution of CP. TEG profile drawn>platelets 12% inhibited.
-Low grade temp 100.5 on 02/06 with urinary incontinence (Cabezas from [facility] was dcd on 02/06)- wbc and UA are normal
-follow platelets - 125 K
-plans for OR on 02/08
Assessment / Plan
-
Assessment:
-Multivessel CAD (including occluded RCA, 80% ostial/distal LM)
-Hx CAD S/P PCI with stents (2003, 2006)
-NSTEMI @ [facility] (peak trop 2164)
-[place]
-Brilinta washout (Last dose AM of 02/05/24)
-S/P IABP @ [facility]- dcd on 02/06/24 @ [facility]
-Acute hypoxic respiratory failure; prior to admission, now resolved
-Acute diastolic CHF
-LVEF 60-65% per TTE 10/07/22 @ [facility]
-No significant valvular disease
-Hx CVA (2015)
-HTN
-Hyperlipidemia
-T2DM (A1C pending)
-Class 1 obesity (BMI 30)
-Esophageal Ca (completed chemo 12/2023, denies dysphagia)
-Moderate Protein Calorie Malnutrition
-Prostate Ca (under surveillance)
-Former tobacco use (1.5 pk/day x 25 yrs; quit 30 yrs ago)
-LE 2+ pitting edema (states post chemo therapy)
-Ambulatory dysfunction post chemotherapy/ R foot drop
-S/P Left teena cath
-S/P L TKA with revision
-S/P R rotator cuff repair
-S/P B/L cataracts
-S/p Loop recorder (2019)
-Paroxysmal a-fib with RVR 150s on 02/07/24 with CP and ischemia on ECG- tx with sl Nitro x3 and drip, iv Lopressor, iv Mg - converted to nsr with resolution of CP. TEG profile drawn>platelets 12% inhibited.
-Low grade temp 100.5 on 02/06 with urinary incontinence (Cabezas from [facility] was dcd)- will check UA
Discussed patient care with: Nursing and Care Team
Subjective
-
Date of Service: February 08, 2024
Objective Data
-
PT 15.6 Sec (11.4-14.6) H 02/05/24 18:39
INR 1.26 02/05/24 18:39
APTT 97.6 Sec (23.4-35.0) H 02/07/24 15:03
Vital Signs
Vital Signs
Temp Pulse Resp BP Pulse Ox
99.8 F 91 20 122/56 96
02/07/24 23:58 02/08/24 00:30 02/07/24 23:58 02/08/24 00:00 02/08/24 00:30
CT Intake/Output/Weight
02/07/24 02/07/24 02/08/24
06:59 18:59 06:59
Intake Total 261.4 / 2182.8 390.8 / 1064.2 673.4 / 1064.2
Output Total 1145 / 3070 600 / 1600 1000 / 1600
Balance -883.6 / -887.2 -209.2 / -535.8 -326.6 / -535.8
SaO2: 96
Physical Exam
-
General: Awake and AOx3
Cardiovascular: Regular rate & rhythm, No Murmurs and Other (L chest port)
Respiratory: Clear and Decreased Breath Sounds
Extremities: Edema +1 (b/l. Pt states undergoing PT for R foot drop and generalized weakness post recent chemo)
Abdomen: soft, nontender, nondistended, + bowel sounds. Denies any difficulty swallowing
Data Reviewed
-
Lab Results: Results Reviewed
Medications: Active Meds Reviewed
Chest X-Ray: Report Reviewed and Image Reviewed
ECG: Report Reviewed and Image Reviewed
[2024-02-08] MEDS: AMARYL 2 MG PO (08:05)
[2024-02-08] MEDS: KCL 40 MEQ PO (08:05)
[2024-02-08] MEDS: NIASPAN TIME RELEASE 500 MG PO ×2 (08:05→20:31)
[2024-02-08] MEDS: MAGNESIUM OXIDE 500 MG PO (08:06)
[2024-02-08] MEDS: SENOKOT-S PO (08:06)
[2024-02-08] MEDS: PROTONIX 40 MG PO (08:06)
[2024-02-08] MEDS: GLUCOPHAGE 1000 MG PO ×2 (08:13→16:57)
[2024-02-08 08:14] LABS: Glucose - Point of Care 158 mg/dl (70-99)
--- NOTE | 2024-02-08 08:15 | PTCARENOTE ---
Assumed care of patient at 0700. Pt is awake, alert, and oriented. No complaints of chest pain. Pt remains SR with HR 70's-80's. BP 96/57 MAP 70. Pulse oximetry 97% on 2L nasal cannula. Pt tolerating PO diet. Voiding without difficulty. Left groin
dressing CDI, ecchymotic, tender to touch. CT PA aware. US of groin ordered. Right radial site intact and AT HOME INDEPENDENT CALL CENTER AGENT. Left subclavian port in place with KVO. Pt remains on heparin and nitro gtt.
--- NOTE | 2024-02-08 08:29 | W.PN.CD ---
Today's Communication / Plan
-
- New , symptomatic, afib. Back in NSR
- Oral amiodarone started
- if recurrent afib , would use IV amiodaorne
- Montior Temps
- CT surgery continuing to assesstimingof surgery..
- left grion US pending.
Impression / Plan
-
Impression/Plan: 74 y/o male with HTN, HLD, NIDDM, treated esophageal CA and known CAD with prior PCI transferred from [facility] with NSTEMI after coronary angiography demonstrated surgical disease which led to flash pulmonary edema.
#CAD with NSTEMI
-Troponin I peaked at 2164 at [facility].
-Continue ASA 81 mg daily and heparin drip.
-Last dose of clopidogrel on 02/05/2024.
-Cardiac catheterization with 80% distal left main, ostial LAD 60%, ostial and proximal LCx 50%, RCA 100% with L to R collaterals.
-CABG on 02/09/2024 (Dr. George).
afib with RVR- New
- occurred 02/08/24 . Symptomatic and lasting minutes.
- in NSR
- start amiodarone
- on IV Heparin
Temp - isolated readingof 100.5 in last 24 hours.CXR 02/07/24 without infiltrate and UA unremarkable. Etiology unclear. Monitor for recurrrence
# pulmonary edema
-Acute, occurred during catheterization at [facility] . no recurrence since at
#Esophageal cancer
-Did not tolerate pembrolizumab.
-Completed treatment last month at [facility].
#Prior prostate cancer
-Reports esophageal cancer treatment also treated his prostate cancer.
#NIDDM
-Chronic, stable.
-HbA1c = pending.
#Dyslipidemia
-Chronic, stable.
-update fasting lipid panel, goal LDL <55
#CVA, 2015
Subjective/Interval History:
Weight down 1.4 kg.
IABP and [place]-Johny catheter discontinued yesterday.
He feels well.
Flooring Sales Manager: Dr. Colunga
DATA:
TTE, 02/06/2024:
CONCLUSIONS
Normal left ventricular size, wall thickness and systolic function.
No regional wall motion abnormalities are seen.
LV ejection fraction is 55-60% by visual assessment.
Normal right ventricular size and function.
Mild aortic regurgitation.
Compared to prior from October 07, 2022, aortic regurgitation is mild from
trace.
Carotid Duplex US, 02/06/2024:
IMPRESSION: Minimal carotid bulb plaque on each side, measurements suggestive of less than 50% stenosis on each side as per modified Society of Radiologists in Ultrasound consensus criteria (IAC carotid criteria white paper, 2020).
Physical Exam
Vital Signs/Labs
Vital Signs
Temp Pulse Resp BP Pulse Ox
97.8 F 84 18 96/57 99
02/08/24 08:00 02/08/24 08:00 02/08/24 08:00 02/08/24 08:00 02/08/24 08:00
02/07/24 02/08/24 02/09/24
06:59 06:59 06:59
Actual Weight 88.2 kg 88.2 kg
02/08/24 04:20
02/08/24 04:20
PT 15.6 Sec (11.4-14.6) H 02/05/24 18:39
INR 1.26 02/05/24 18:39
APTT 117.7 Sec (23.4-35.0) H 02/08/24 04:19
Magnesium 2.1 mg/dl (1.6-2.3) 02/08/24 04:20
02/06/24
03:55
Moc-E-Tvssrmaqkvy Pept 1820
Physical Exam
Constitutional: No acute distress
Cardiovascular: Rhythm & rate is regular
Respiratory: Respiratory effort normal
GI: Soft
Neuro/Psych: Alert
Other: Other (left grion IABB site. tnedreness present. Degreeof swellling is mild and appears within normal limits. )
Data Reviewed
-
Date of Service: February 08, 2024
Medical Decision Making: Reviewed Test Results
Echo: Report Reviewed by me
X-Ray/CT/US/MRI/NUC/PET: Report Reviewed by me
Medical Tests (PFT, Pathology etc): Report Reviewed by me
Labs: Labs Reviewed by me
--- NOTE | 2024-02-08 09:07 | PN.DE.MGMTRT ---
Insulin Management
- -
02/08/2024 Diabetes Management Consult
Patient transferred from [facility] 02/04 s/p chest pain, cardiac cath. PMH CAD, esophageal CA, prostate CA, HTN, CVA, HCL, type 2 diabetes, [place], pulmonary edema.
Patient is awake alert and oriented oob in chair.
Patient for OR Monday, 02/08 for CABG.
Prior to admission was taking glimepiride 2 mg daily, metformin 1000 BID and Janumet 100/1000 PM. A1C 7.2, cr .7, eGFR >60.
Patient oral medication restarted yesterday, glucose improved this AM 134 venous. Will continue moderate corrective insulin with oral medications.
Diabetes History
- -
Type of Diabetes: 2
Pre-Admission Diabetes Regimen
02/08/24
04:20
Creatinine 0.7
Lab Results
Hemoglobin A1c 7.2 % (4.0-5.6) H 02/05/24 18:39
Insulin Pump Settings
IP Diabetes Regimen
02/07/24 02/07/24 02/08/24
13:03 16:57 04:20
Glucose 134 H
POC Glucose 214 H 289 H
02/08/24
08:13
Glucose
POC Glucose 158 H
Meal type: Dinner
Amount consumed: 75%
Patient Education
[2024-02-08] MEDS: PACERONE 400 MG PO ×2 (09:43→20:29)
[2024-02-08] MEDS: NOVOLOG FLEXPEN-MODERATE RESISTANCE 1 UNITS SC ×2 (09:43→16:53)
--- NOTE | 2024-02-08 10:22 | CM ---
Addendum entered by Sandra Alaniz RN 02/08/24 15:24:
PT evaluation recommending SNF. I reviewed this with the patient and he is agreeable. Patient has not been to a SNF and doesn't have a preference. He would like to be close. He is open to [facility]. Plan is for the
patient to return home with CT Transitional RN vs SNF.
Original Note:
Chart reviewed. Patient is independent of ADLS, lives with his in a [address], 1 [address], 0 DME, but has a RW and SPC at home. Patient is going for a CABG tomorrow. Plan is for the patient to return home with CT Transitional RN. CM to follow
--- NOTE | 2024-02-08 11:09 | W.PN.UPDATE ---
Addendum entered and electronically signed by Scot George MD 02/08/24 13:09:
NAME ERROR CORRECTION
Mr. Joseph Lezama is an INCORRECT dictation error
The below note is on patient JOSEPH BUSTOS (1950)
My apologize for any confusion.
Dr. Scot George
Original Note:
Update Note
Progress Note Update
CARDIAC SURGERY ATTENDING:
It was my pleasure to speak with Mr. Joseph Lezama and his at bedside today. We once again reviewed his pathology, discussed the proposed operative interventions, reviewed the periprocedural risks (including, but not limited to, ,
stroke, KS, arrhythmia, PNA, GREER/F, bleeding, infection, and need for reoperation), discussed expected and possible post procedural course, and reviewed the expected outpatient recovery. All questions were answered to the best my abilities. The
patient is agreeable to proceed.
I anticipate coronary artery bypass grafting x 3-5 with RUPAL to LAD, greater saphenous vein to OM, greater saphenous vein to terminal LCx, possible greater saphenous vein to D1, and possible greater saphenous vein to PDA. His STS risk assessment is
as noted with a mortality rate of 2.28% and the morbidity rate of 14%. The patient also had a very brief episode of atrial fibrillation during this hospital course. I do not believe concurrent ablation is necessary given that he is currently in
sinus rhythm and it was a very brief episode, however, I do believe it is prudent to consider exclusion of his left atrial appendage at the time of surgery. I will proceed to the operating room tomorrow 02/09/2024.
Thank you for the opportunity to participate in the care of this kind gentleman.
Scot George MD
[phone]
[2024-02-08] MEDS: NSS IV (11:20)
--- NOTE | 2024-02-08 11:47 | PTCARENOTE ---
Pt OOB in chair with RN assistance. US of left groin completed. PFT testing completed. Dr. George to bedside to discuss CVOR case scheduled for 02/08. Pt remains chest pain free, nitro gtt now off. Pt remains on heparin gtt at this time, PTT
obtained. Type and screen collected. Pt working with PT/OT. BP 103/59 MAP 73. Remains SR with HR 60's. Pulse oximetry 99% on room air.
[2024-02-08 11:57] LABS: APTT 128.4 Sec (23.4-35.0)
--- NOTE | 2024-02-08 12:16 | CM ---
Addendum entered by Sandra Alaniz RN 02/08/24 15:22:
Patient is agreeable to the cost. Patient said he was on one of these medication in the past and did not help his blood sugar, it caused his blood sugar to spike. He can't remember the name, but said it was when the medication first came out
Original Note:
Pricing on Farxiga 10 mg through the patient's [facility], ID # [id number], is $30 for a 30 day supply
Jardiance 10 mg daily for a 30 day supply is $30 a month
[2024-02-08] MEDS: NOVOLOG FLEXPEN-MODERATE RESISTANCE 3 UNITS SC (12:23)
[2024-02-08 12:30] LABS: Glucose - Point of Care 233 mg/dl (70-99)
[2024-02-08] MEDS: HEPARIN 25000 UNITS/250 ML IV (14:20)
--- NOTE | 2024-02-08 16:30 | PTCARENOTE ---
Pt remains chest pain free. Nitro gtt off remains off at this time. Remains on Heparin gtt. Pt remains SR with HR 80's. BP 102/62 MAP 76. Pulse oximetry 98% on room air.
[2024-02-08 16:56] LABS: Glucose - Point of Care 173 mg/dl (70-99)
[2024-02-08] MEDS: GLUCOPHAGE XR EXTENDED RELEASE 1000 MG PO (18:13)
[2024-02-08] MEDS: ZETIA 10 MG PO (18:13)
[2024-02-08] MEDS: JANUVIA 100 MG PO (18:13)
[2024-02-08] MEDS: LIPITOR 40 MG PO (18:13)
[2024-02-08] MEDS: TOPROL XL 200 MG PO (18:13)
[2024-02-08 18:53] LABS: APTT 90.5 Sec (23.4-35.0)
[2024-02-08] MEDS: SENOKOT-S 1 TABLET PO (20:28)
--- NOTE | 2024-02-08 20:30 | PTCARENOTE ---
Patient received resting in bed watching television. Patient A+A+Ox3. No neurological deficits noted. No c/o headache, dizziness or lightheadedness. No s/s of respiratory distress. No c/o SOB. Room air. SaO2 96%. Sinus Rhythm. Heart rate
70-80's. No c/o chest pain, pressure or discomfort. Normoactive bowel sounds noted. No BM. No c/o nausea. No vomiting. Voiding without difficulty. Patient with left anterior chest wall SQ Port. KVO 10 ml/hr saline. IV Heparin gtt. Nitro
gtt off. Right radial site intact - Positive circulation, sensation and mobility to right upper extremity. Left groin site intact, ecchymotic, slightly swollen, tender to light palpation. Bilateral lower extremities with edema. Bilateral lower
extremities with positive circulation, sensation and mobility. Afebrile. Patient with no c/o back or flank pain. Assessment as documented.
[2024-02-08] MEDS: MELATONIN 5 MG PO (22:48)
--- NOTE | 2024-02-08 23:00 | PTCARENOTE ---
Patient given 4% Chlorhexidine bath. Linens and EKG leads changed. Patient resting in bed watching television. No c/o pain or discomfort. Assessment as documented.
--- NOTE | 2024-02-08 23:05 | PTCARENOTE ---
Patient clipped and prepped per protocol previous to 4% Chlorhexidine bath. Assessment/Interventions as documented.
[2024-02-09] VITALS (22 sets, daily range): BP systolic 95–121; BP diastolic 49–78; PULSE 78; BMI 29.5
[2024-02-09 00:57] LABS: APTT 97.5 Sec (23.4-35.0)
[2024-02-09] MEDS: LOPRESSOR 2.5 MG IV (01:35)
--- NOTE | 2024-02-09 02:00 | PTCARENOTE ---
Patient NPO after midnight. Patient rang call [place]. Patient with c/o nausea. Vomited liquidity, partially digested food. c/o chest pain - 11/04. Nitro gtt restarted at 5 mcq/min (0.8 ml/hr). 0126 - Patient with short burst of A-Fib. HR
110-140. Lopressor 2.5 mg IV ordered and administered without difficulty. Sinus Rhythm. Heart rate 80's. Blood pressure 112/64 (79). Patient assisted with brushing teeth and washing face. Most recent PTT 97.5 - Therapeutic range - IV Heparin
gtt rate remains at 1620 units/hr (16.2 ml/hr). No IV Heparin related complications. Patient now sleeping. Assessment/Interventions as documented.
--- NOTE | 2024-02-09 02:02 | W.PN.UPDATE ---
Update Note
Progress Note Update
-@ approx 1:20 am pt c/o nausea and vomited some undigested food. Denied any abdominal discomfort. He then c/o 2/10 CP, followed by a very brief episode of a-fib (less than 5 min). Nitro drip was restarted and uptitrated to 20, gave 2.5 mg iv
Lopressor and 2L O2. CP resolved. Current drips: Nitro 5 and iv Heparin. Pt is feeling better and pain free.
-will continue Nitro and Heparin drips to OR
[2024-02-09] MEDS: HEPARIN 25000 UNITS/250 ML IV (04:15)
[2024-02-09] MEDS: MAGNESIUM OXIDE 500 MG PO (06:15)
[2024-02-09] MEDS: LOPRESSOR 25 MG PO (06:16)
[2024-02-09] MEDS: BACTROBAN 2% OINTMENT 1 APPLIC NASAL ×2 (06:16→21:00)
[2024-02-09] MEDS: PROTONIX 40 MG PO (06:16)
--- NOTE | 2024-02-09 06:20 | PTCARENOTE ---
Patient A+A+Ox3. No neurological deficits noted. No c/o headache, dizziness or lightheadedness. No c/o nausea. No vomiting. No c/o chest pain, pressure or discomfort. Patient given second 4% Chlorhexidine bath and linens changed. CHG wipes.
Patient given pre-op medications. Patient continues on IV Heparin and IV Nitro. Dr. George arrived to speak with patient. 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
[2024-02-09 07:16] LABS: ACT+ - POC 109 Seconds (82-134)
--- NOTE | 2024-02-09 07:35 | PN.DE.MGMTRT ---
Insulin Management
- -
02/09/2024 Diabetes Management F/U:
Patient transferred from [facility] 02/04 s/p chest pain, cardiac cath. PMH CAD, esophageal CA, prostate CA, HTN, CVA, HCL, type 2 diabetes, ND, pulmonary edema. Prior to admission was taking glimepiride 2 mg daily, metformin 1000 BID and Janumet
100/1000 PM. A1C 7.2, cr .7, eGFR >60.
Patient is not available for interview at this time. He is off the floor to the OR for CABG today. Was NPO since MN. No glucose obtained this morning. Last POS was done pre-dinner 176, pt received 1 units of corrective insulin. He will be managed on
glycemic protocol x48hrs post cardiac surgery
At time of transition off drip, resume pt's OP regimen: Glimepiride 2 mg daily, Metformin 1000 BID and Januvia 100 mg daily in addition to Jardiance 10 mg daily
Will follow up on Monday.
Diabetes History
- -
Type of Diabetes: 2
Pre-Admission Diabetes Regimen
Lab Results
Hemoglobin A1c 7.2 % (4.0-5.6) H 02/05/24 18:39
Insulin Pump Settings
IP Diabetes Regimen
02/08/24 02/08/24 02/08/24
08:13 12:22 16:50
POC Glucose 158 H 233 H 173 H
Meal type: Dinner
Meal type: Breakfast
Amount consumed: 55%
Amount consumed: 100%
Patient Education
[2024-02-09 07:42] LABS: B.E. - POC -1.2 mmol/L; Glucose - POC 164 mg/dl (65-99); HCO3 - POC 24 mmol/L (21-29); Hematocrit - POC 30 % PCV (42-52); Hemodilution- POC No; Hemoglobin Calculated - POC 10.3; O2 Saturation %Calculated-POC 99.1 5 (92-96); PCO2 - POC 42 mmHg (35-45); PO2 - POC 142 mmHg (80-100); Potassium - POC 3.9 mmol/L (3.6-5.0); Sodium - POC 140 mmol/L (135-145); pH - POC 7.37 (7.35-7.45)
--- NOTE | 2024-02-09 07:49 | W.PN.CD ---
Today's Communication / Plan
-
CABG today.
Impression / Plan
-
Impression/Plan: 74 y/o male with HTN, HLD, NIDDM, treated esophageal CA and known CAD with prior PCI transferred from [facility] with NSTEMI after coronary angiography demonstrated surgical disease which led to flash pulmonary edema.
#CAD with NSTEMI
-Troponin I peaked at 2164 at [facility].
-Continue ASA 81 mg daily and heparin drip.
-Last dose of clopidogrel on 02/05/2024.
-Cardiac catheterization with 80% distal left main, ostial LAD 60%, ostial and proximal LCx 50%, RCA 100% with L to R collaterals.
-CABG today with Dr. George.
#Paroxysmal atrial fibrillation with RVR
-New diagnosis.
-Occurred 02/08/24, again last night. Symptomatic and lasting minutes.
-Currently in NSR.
#Temp
-Isolated reading of 100.5 in last 24 hours.CXR 02/07/24 without infiltrate and UA unremarkable.
-Etiology unclear. Monitor for recurrence.
#Pulmonary edema
-Acute, occurred during catheterization at [facility] . no recurrence since at
#Esophageal cancer
-Did not tolerate pembrolizumab.
-Completed treatment last month at [facility].
#Prior prostate cancer
-Reports esophageal cancer treatment also treated his prostate cancer.
#NIDDM
-Chronic, stable.
-HbA1c = pending.
#Dyslipidemia
-Chronic, stable.
-update fasting lipid panel, goal LDL <55
#CVA, 2016
Subjective/Interval History:
Recurrent afib overnight.
Nitro restarted and metoprolol given.
Control Systems Eng: Dr. Colunga
DATA:
TTE, 02/06/2024:
CONCLUSIONS
Normal left ventricular size, wall thickness and systolic function.
No regional wall motion abnormalities are seen.
LV ejection fraction is 55-60% by visual assessment.
Normal right ventricular size and function.
Mild aortic regurgitation.
Compared to prior from October 07, 2022, aortic regurgitation is mild from
trace.
Carotid Duplex US, 02/06/2024:
IMPRESSION: Minimal carotid bulb plaque on each side, measurements suggestive of less than 50% stenosis on each side as per modified Society of Radiologists in Ultrasound consensus criteria (IAC carotid criteria white paper, 2020).
Physical Exam
Vital Signs/Labs
Vital Signs
Temp Pulse Resp BP Pulse Ox
36.8 C 80 16 104/56 95
02/09/24 06:00 02/09/24 06:16 02/09/24 06:00 02/09/24 06:16 02/09/24 06:00
02/07/24 02/08/24 02/09/24
11:59 11:59 11:59
Actual Weight 88.2 kg 88.2 kg 88 kg
02/08/24 04:20
02/08/24 04:20
PT 15.6 Sec (11.4-14.6) H 02/05/24 18:39
INR 1.26 02/05/24 18:39
APTT 97.5 Sec (23.4-35.0) H 02/09/24 00:32
Magnesium 2.1 mg/dl (1.6-2.3) 02/08/24 04:20
02/06/24
03:55
Dhc-R-Qxqygbvvamo Pept 1820
Physical Exam
Exam deferred as the patient is in surgery.
Data Reviewed
-
Date of Service: February 09, 2024
Medical Decision Making: Reviewed Test Results, Independent Historian Assessment and Test Interpretation
EKG: Tracing Personally Visualized and interpreted and Report Reviewed by me
Echo: Tracing Personally Visualized and interpreted and Report Reviewed by me
X-Ray/CT/US/MRI/NUC/PET: Image Personally Visualized and interpreted and Report Reviewed by me
Medical Tests (PFT, Pathology etc): Image Personally Visualized and interpreted and Report Reviewed by me
Labs: Labs Reviewed by me
[2024-02-09 08:31] LABS: Urine Albumin Negative (Neg - Trace); Urine Bilirubin Negative (Negative); Urine Character Clear (Clear); Urine Color Yellow; Urine Glucose Negative (Negative); Urine Ketone Trace (Negative); Urine Leukocyte Trace (Negative); Urine Nitrite Negative (Negative); Urine Occult Blood Negative (Negative); Urine Urobilinogen Negative (Neg - 1+); Urine pH 6.5 (5.0-9.0)
[2024-02-09 08:45] LABS: Urine Mucus Many
[2024-02-09 08:47] LABS: Urine Amorphous Seen; Urine Red Blood Cell 0-2 /HPF (0-2)
[2024-02-09 08:48] LABS: Urine White Cell 0-2 /HPF (0-5)
[2024-02-09 09:53] LABS: ACT+ - POC 465 Seconds (82-134)
[2024-02-09 10:28] LABS: ACT+ - POC 431 Seconds (82-134)
--- NOTE | 2024-02-09 10:58 | CM ---
Chart reviewed. Patient is in the OR today. Patient is independent of ADLS, lives with his in a 1 S[address], 1STE, does not use any DME but has a SPC and RW at home. PT evaluation prior to surgery recommending SNF. Referrals placed to [facility] "and [facility]. CM to follow
[2024-02-09 11:00] LABS: ACT+ - POC 471 Seconds (82-134)
[2024-02-09 11:05] LABS: B.E. - POC 1.2 mmol/L; Glucose - POC 193 mg/dl (65-99); HCO3 - POC 26 mmol/L (21-29); Hematocrit - POC 21 % PCV (42-52); Hemodilution- POC Yes; Hemoglobin Calculated - POC 7.2; Ionized Calcium - POC 1.05 mmol/L (1.12-1.27); O2 Saturation %Calculated-POC 99.9 5 (92-96); PCO2 - POC 41 mmHg (35-45); PO2 - POC 270 mmHg (80-100); Potassium - POC 4.7 mmol/L (3.6-5.0); Sodium - POC 137 mmol/L (135-145); pH - POC 7.41 (7.35-7.45)
[2024-02-09 11:45] LABS: B.E. - POC -1.1 mmol/L; Glucose - POC 172 mg/dl (65-99); HCO3 - POC 24 mmol/L (21-29); Hematocrit - POC 24 % PCV (42-52); Hemodilution- POC Yes; Hemoglobin Calculated - POC 8.2; O2 Saturation %Calculated-POC 99.4 5 (92-96); PCO2 - POC 44 mmHg (35-45); PO2 - POC 164 mmHg (80-100); Potassium - POC 4.2 mmol/L (3.6-5.0); Sodium - POC 140 mmol/L (135-145); pH - POC 7.36 (7.35-7.45)
[2024-02-09 11:47] LABS: ACT+ - POC 482 Seconds (82-134)
--- NOTE | 2024-02-09 12:27 | CON.INTV ---
Consultation
Consultation Request
Date/Time Consultation Requested: 02-09-24
Date/Time Consultation Performed: 02-09-24
Requesting Provider: Dr George
Performing Provider: Dr Vasquez
Reason for Consultation: s/p CABG MV
Medical History
-
Chief Complaint: s/p CABG MV
History of Present Illness:
Mr Joseph Lucero is a 74/M adm in transfer from [facility] on 02-04 for evaluation of ACS in setting of known h/o CAD s/p stents in 2003 and 2006, [place] positive for MVD. Seen by Cards and CTSx upon adm, candidate for CABG, plavix held, prepared for surgery.
Received CABG 03-[address] George[address] Seen at CV[facility], sedated, well synchronized to SIMV
Past Medical History
Past Medical History: Other (see A&P for PMH/PSH)
Social History
Tobacco: Non-smoker
Alcohol: Occasional
Drug: None
Personal:
Living: With Family
Employment: Retired
Family History
Family History: Reviewed & Not Pertinent
Allergies / Home Medications
Allergies
Allergy/AdvReac Type Severity Reaction Status Date / Time
Iodinated Contrast Media Allergy Hives Verified 02/07/24 21:33
Home Medications
�Medication �Instructions �Recorded �Confirmed �Last Taken �Type
Theragran 1 tab PO DAILY Supplement 02/05/24 02/05/24 Unknown History
ascorbic acid (vitamin C) 1,500 mg 1 tab PO DAILY Supplement 02/05/24 02/06/24 02/02/24 08:00 History
tablet
aspirin 81 mg tablet 81 mg PO DAILY Blood Clot 02/05/24 02/06/24 02/02/24 08:00 History
Prevention/Tx
atorvastatin 40 mg tablet (Lipitor) 40 mg PO QPM High Cholesterol 02/05/24 02/06/24 02/02/24 08:00 History
citalopram 10 mg tablet (Celexa) 10 mg PO DAILY Mental 02/05/24 02/06/24 02/02/24 08:00 History
Health/Anxiety
clopidogrel 75 mg tablet (Plavix) 75 mg 1XD Blood Clot Prevention/Tx 02/05/24 02/06/24 02/02/24 08:00 History
ezetimibe 10 mg tablet (Zetia) 10 mg QPM High Cholesterol 02/05/24 02/06/24 02/02/24 08:00 History
glimepiride 2 mg tablet 2 mg PO DAILY Diabetes 02/05/24 02/06/24 02/02/24 08:00 History
metformin 1,000 mg tablet 1,000 mg PO BID Diabetes 02/05/24 02/06/24 02/02/24 08:00 History
metoprolol succinate 200 mg 200 mg PO DAILY Heart 02/05/24 02/06/24 02/02/24 08:00 History
tablet,extended release 24 hr Disease/Condition
niacin 500 mg tablet 500 mg PO BID High Cholesterol 02/05/24 02/06/24 02/02/24 08:00 History
omega3 1,000 as-zxp-mbc-other 1 cap PO BID High Cholesterol 02/05/24 02/06/24 02/02/24 08:00 History
dv8l-furh oil 1,400 mg
capsule,delay rel
pantoprazole 40 mg tablet,delayed 40 mg PO DAILY Gastrointestinal 02/05/24 02/06/24 02/02/24 08:00 History
release (Protonix) Issue
prochlorperazine maleate 10 mg 10 mg PO Q6H PRN nausea 02/05/24 02/06/24 02/02/24 08:00 History
tablet (Compazine)
sitagliptin phos 100 mg-metformin 1 tab PO QPM Diabetes 02/05/24 02/06/24 02/02/24 08:00 History
ER 1,000 mg tablet,extend rel 24h
mp (Janumet XR)
tramadol 50 mg tablet 50 mg PO Q6H PRN pain 02/05/24 02/05/24 Unknown History
Review of Systems
-
Unable to Obtain full review of systems at this time due to: Patient Intubation
Vitals / Labs / Diagnostic Testing
Vital Signs
Temp Pulse Resp BP Pulse Ox
98.2 F 80 16 104/56 95
02/09/24 06:00 02/09/24 06:16 02/09/24 06:00 02/09/24 06:16 02/09/24 06:00
Lab Data
02/08/24 04:20
02/08/24 04:20
Laboratory Results
02/08/24 02/09/24
18:28 00:32
APTT 90.5 H 97.5 H
Diagnostic Testing:
Physical Exam
-
HEENT: Normocephalic and Moist Mucous Membranes
Cardiovascular: Regular Rhythm and Peripheral Edema (n)
Respiratory: Clear, Non-Labored Respirations and Other (chest/med tubes)
GI: Soft and Non Distended
Neurology: Other (sedated)
Skin: Warm
General: Respiratory Distress (n)
Assessment
-
Assessment:
Mr Joseph Lucero is a 74/M adm in transfer from [facility] on 02-04 for evaluation of ACS in setting of known h/o CAD s/p stents in 2003 and 2006, [place] positive for MVD. Seen by Cards and CTSx upon adm, candidate for CABG, plavix held, prepared for surgery.
Received CABG 03-[address] George
Impression:
Multivessel CAD
S/p CABGx4 02-08
Preop new onset AFib with RVR 02-07, brief, self resolved
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
CAD
Loop recorder
HTN
HLD
NIDDM
Esophageal cancer, s/p chemorx and immunotherapy completed at [facility] 1 m CASINO DEAL[place]. L chest port-A-cath
Prostate cancer, s/p therapy
CVA 8 y ago, ocular symptoms
L knee replacement
R rotator cuff repair
Nonsmoker
Plan:
Ventilator settings reviewed:
SIMV at [phone] (POx 100%)
FiO2 will be weaned
Minute ventilation will be adjusted
Arterial blood gases will be monitored
Spontaneous breathing trial will be attempted with hopeful extubation after anesthesia/sedation wear off
Noted preop spirometry with moderate obstruction. Reportedly not on outpatient BDs or inpatient BDs
Continue albuterol nebs prn
Postop CXR with mild pulm vasc congestion. ETT, TIJ SG in place, sternotomy wiring, chest/med tubes in place
Pulmonary artery catheter parameters will be followed
Pressors/antihypertensive/inotropes/diuretics will be provided as needed
Monitor chest tube output
Monitor hemoglobin
Monitor platelet count and coags
Transfuse blood product if needed
CT surgery following chest tubes
Monitor blood sugar
Insulin drip per protocol
Aspiration precautions
VAP prevention protocol
DVT prophylaxis
Early nutrition
Early mobilization
Critical care time: 35 min
D/w CTSx BRENDA Sibley
[2024-02-09 12:46] LABS: ACT+ - POC 107 Seconds (82-134)
[2024-02-09 12:48] LABS: B.E. - POC -2.1 mmol/L; Glucose - POC 101 mg/dl (65-99); HCO3 - POC 23 mmol/L (21-29); Hematocrit - POC 28 % PCV (42-52); Hemodilution- POC Yes; Hemoglobin Calculated - POC 9.4; Ionized Calcium - POC 1.26 mmol/L (1.12-1.27); PCO2 - POC 38 mmHg (35-45); PO2 - POC 375 mmHg (80-100); Potassium - POC 3.9 mmol/L (3.6-5.0); Sodium - POC 142 mmol/L (135-145); pH - POC 7.39 (7.35-7.45)
--- NOTE | 2024-02-09 13:04 | W.CVOR.SURPR ---
CVOR Surgeon Immed Pre Op
-
I have examined this patient prior to performance of the scheduled procedure.
The patient's condition is unchanged from the time of the dictated/written History and
Physical and the patient is able to undergo the scheduled procedure.
--- NOTE | 2024-02-09 13:04 | W.IMMPOSTOP ---
Addendum entered and electronically signed by Scot George MD 02/09/24 14:42:
[id number]
Original Note:
Surgical Immed Post Op Note
-
CARDIAC SURGERY OPERATIVE NOTE:
Preoperative Dx:
Multivessel CAD including significant LM disease
NSTEMI
Recent decompensated CHF requiring IABP
Brief episode of preoperative AF
Postoperative Dx:
Same
Procedures:
1) Median sternotomy
2) Takedown of RUPAL (narrow pedicle)
3) Endoscopic harvest/prep of RLE GSV
4) Drainage of B/L effusions
5) CABG x 4 (RUPAL to LAD, GSV to OM1, GSV to terminal LCx (L PLB), GSV to R PDA)
6) ELAA w/ 35mm AtriClip
Surgeon:
Scot George M.D.
Assistants:
Amarjit Salas P.A.-C.; endoscopic harvest/prep of RLE GSV, first responder throughout, closure
Piotr Roland P.A.-C.; skin closure
Anesthesia:
Harmeet Wang M.D. and Ladarius Day CShannanR.N.A.
Perfusion:
Dee Johnson, C.C.P.; XC: 85min, CPB: 122min
Findings:
RUPAL was a healthy vessel w/ ELD 2.75mm, very brisk blood flow
GSV was healthy conduit w/ ELD 3.5-4.0mm
LAD was visible at apex, midpoint identified under epicardial adipose, scattered calcifications, ELD 2.75mm
OM was visible on the epicardial surface, proximal calcifications, ELD 1.25mm (anastomosis performed over 1mm shunt)
Terminal LCx was visible on the epicardial surface, scattered calcifications, ELD 2.50mm
R PDA was visible on the epicardial surface, ELD 1.50mm
Good flow in all bypasses on hand-injection and intraoperative transit-time U/S assessment
Post-PONCHO: Normal biventricular function w/ no RWMA, mild-to-mod AI, mild MR (improved from preop), IRENE no longer visible
Transfusions:
2U PRBC
Implants:
CT x 4 (B/L pleural, inferior mediastinal, superior mediastinal)
Sternal wires
Complications:
None
Condition:
GTTS: levophed 4, insulin 0.5, precedex 0.6
80 sinus w/ isoelectrics STs. 93/50. 46/30. CVP 18. CO/CI: 3.8/1.8.
Stable/guarded to CVICU
[2024-02-09] MEDS: ANCEF 10 IV ×2 (13:30)
--- NOTE | 2024-02-09 13:30 | PTCARENOTE ---
Patient received post op CABG x 4/YVONNE clip 40mm: usualk lines. Intubated/vented and sedated. Levophed. Left brachial art line in place. Levophed gttt at 4mcg. NSR Chest tubes x 4 as documented. See flowrecord for remaining assessments.
[2024-02-09 13:39] LABS: Glucose - Point of Care 85 mg/dl (70-99)
[2024-02-09 14:01] LABS: Hematocrit 27.3 % (39.0-52.0); Hemoglobin 9.2 g/dL (13.0-18.0); Platelet Count 108 10^3/uL (130-400)
[2024-02-09 14:13] LABS: B.E. 0.2 mmol/L; HCO3 24.6 mmol/L (21-28); Ionized Calcium 1.22 mMOL/L (1.15-1.33); O2 Saturation % 99.5 % (94-98); PCO2 38 mmHg (35-48); PO2 175 mmHg (83-108); Potassium 4.1 mMOL/L (3.5-5.1); Sodium 136 mMOL/L (136-145); pH 7.42 (7.35-7.45)
[2024-02-09 14:14] LABS: Mixed Venous O2 Saturation 66.3 %
[2024-02-09 14:15] LABS: Blood Urea Nitrogen 15 mg/dl (9-20); Estimated Creatinine Clearance 81 ml/min; Glucose 83 mg/dl (70-99); Magnesium 2.4 mg/dl (1.6-2.3)
[2024-02-09 14:19] LABS: INR 1.38; PT 16.7 Sec (11.4-14.6)
[2024-02-09 14:20] LABS: APTT 29.3 Sec (23.4-35.0)
[2024-02-09 14:48] LABS: Glucose - Point of Care 95 mg/dl (70-99)
[2024-02-09] MEDS: NEURONTIN PO ×2 (14:56→16:03)
[2024-02-09] MEDS: NOVOLOG FLEXPEN SC ×2 (14:56→17:04)
[2024-02-09] MEDS: NIASPAN TIME RELEASE PO (14:56)
[2024-02-09] MEDS: TYLENOL PO (14:57)
[2024-02-09] MEDS: VITAMIN C PO (14:57)
[2024-02-09] MEDS: NSS 500 IV (14:57)
[2024-02-09] MEDS: OFIRMEV 100 IV (15:29)
[2024-02-09] MEDS: DOBUTREX 500 MG 250 IV (15:58)
[2024-02-09] MEDS: PACERONE PO ×2 (16:03→23:28)
[2024-02-09 16:08] LABS: Glucose - Point of Care 115 mg/dl (70-99)
[2024-02-09 17:02] LABS: Glucose - Point of Care 140 mg/dl (70-99)
[2024-02-09 17:03] LABS: B.E. -2.2 mmol/L; HCO3 22.3 mmol/L (21-28); Hematocrit 28.1 % (39.0-52.0); Hemoglobin 9.5 g/dL (13.0-18.0); Ionized Calcium 1.18 mMOL/L (1.15-1.33); PCO2 36 mmHg (35-48); PO2 154 mmHg (83-108); Platelet Count 103 10^3/uL (130-400); Potassium 4.2 mMOL/L (3.5-5.1)
[2024-02-09] MEDS: ALBUMIN 5% 250 IV (17:04)
--- NOTE | 2024-02-09 17:50 | PTCARENOTE ---
Tolerating cpap wean on vent. Following simple commands. ABG's good. Extubated to 4L nasal ministerio oxygen. Angelic, PAPER TESTING SUPERVISOR updated with above hemodynamics and all labs. New orders received.
[2024-02-09 18:12] LABS: Glucose - Point of Care 118 mg/dl (70-99)
[2024-02-09] MEDS: LOW STRENGTH ASPIRIN 81 MG PO (18:33)
[2024-02-09] MEDS: ZETIA 10 MG PO (18:33)
[2024-02-09] MEDS: LIPITOR 40 MG PO (18:33)
[2024-02-09 20:01] LABS: Glucose - Point of Care 101 mg/dl (70-99)
--- NOTE | 2024-02-09 20:30 | PTCARENOTE ---
Patient received resting in bed dozing intermittently. Patient A+A+Ox3. No neurological deficits noted. No c/o headache, dizziness or lightheadedness. No s/s of respiratory distress. No c/o SOB. O2 at 4L via NC. SaO2 96%. Four chest tubes -
Mediastinal x2 and Right and Left Pleural - Intact and patent - Red drainage - Outputs as documented - No air leak, tidaling or crepitus noted. Chest tube dressing intact. Sinus Rhythm to Sinus Tachycardia. Heart rate 90-100's. No c/o chest
pain, pressure or discomfort. Levophed gtt decreased to 2 mcq/min (7.5 ml/hr) to maintain MAP >=65. Dobutamine gtt decreased to 2 mcq/kg/min (5.3 ml/hr) - Titrate per provider for C.I. >2.0. C.O. 6.45 C.I. 3.19. CVP 4 (PA for CT Surgery aware).
PAP 30/12 (20). SVR 769. Right I.J. Introducer/Cordis with [place] Johny catheter. Left Brachial Arterial line. A-Line, PAP, CVP - Pressure bag/Saline flush - Zeroed and calibrated - Flush without difficulty - Waveform within normal limits.
Abdomen round, soft. Normoactive bowel sounds. No BM. No c/o nausea. No vomiting. Cabezas catheter intact - Temperature sensing - Heaven, yellow urine - Outputs as documented. Generalized edema. Bilateral lower extremity edema R>L. Positive
pulses. Positive circulation, sensation and mobility. Sternal Aquacell dressing intact. Right groin puncture site intact. Right knee incision intact - Coban Maximino Wrap. Left groin intact, ecchymotic, slightly swollen - No c/o pain or discomfort.
Patient with no c/o back or flank pain. Assessment as documented.
[2024-02-09] MEDS: ANCEF 5 IV (21:00)
[2024-02-09] MEDS: SENOKOT-S 1 TABLET PO (21:01)
[2024-02-09] MEDS: NIASPAN TIME RELEASE 500 MG PO (21:01)
[2024-02-09] MEDS: TYLENOL 1000 MG PO (21:22)
[2024-02-09] MEDS: NEURONTIN 100 MG PO (21:22)
[2024-02-09] MEDS: PACERONE 200 MG PO (21:23)
[2024-02-09 22:17] LABS: Glucose - Point of Care 93 mg/dl (70-99)
--- NOTE | 2024-02-09 23:00 | PTCARENOTE ---
C.O. 6.55 C.I. 3.24 Dobutamine gtt at 1 mcq/kg/min (2.6 ml/hr). Levophed gtt at 3 mcq/min (11.3 ml/hr). No further changes from previous assessment.
[2024-02-09] MEDS: ROXICODONE 5 MG PO (23:14)
[2024-02-09] MEDS: NOVOLOG FLEXPEN-MODERATE RESISTANCE SC ×2 (23:27)
[2024-02-09] MEDS: MAGNESIUM OXIDE PO (23:28)
[2024-02-09] MEDS: GLUCOPHAGE PO (23:28)
[2024-02-09] MEDS: AMARYL PO (23:28)
[2024-02-09] MEDS: PROTONIX PO (23:28)
[2024-02-09] MEDS: SENOKOT-S PO (23:29)
[2024-02-09 23:58] LABS: Glucose - Point of Care 99 mg/dl (70-99)
[2024-02-10] VITALS (22 sets, daily range): BP systolic 96–128; BP diastolic 55–71; BMI 30.2
[2024-02-10] MEDS: LEVOPHED 250 IV (00:35)
--- NOTE | 2024-02-10 01:00 | PTCARENOTE ---
Roxicodone 5mg PO for pain management 03/04 sternal pain - Positive relief provided. C.O. 7.00 C.I. 3.47 Dobutamine gtt titrated to off. Levophed gtt at 2 mcq/min (7.5 ml/hr). No further changes from previous assessment.
[2024-02-10 02:07] LABS: Glucose - Point of Care 121 mg/dl (70-99)
--- NOTE | 2024-02-10 03:00 | PTCARENOTE ---
C.O. 5.87 C.I. 2.91 Patient sleeping without difficulty. Levophed titrated to off. No further changes from previous assessment.
[2024-02-10] MEDS: ROXICODONE 5 MG PO ×3 (03:30→23:15)
[2024-02-10] MEDS: ANCEF 5 IV ×2 (03:30→11:32)
[2024-02-10] MEDS: ZOFRAN 4 MG IV (03:44)
[2024-02-10 04:06] LABS: Glucose - Point of Care 111 mg/dl (70-99)
[2024-02-10 04:20] LABS: Hematocrit 28.3 % (39.0-52.0); Hemoglobin 9.6 g/dL (13.0-18.0); Mean Corp Hgb Conc. 33.9 g/dL (33.0-37.0); Mean Corpuscular Hgb 29.5 pg (27.0-31.0); Mean Corpuscular Volume 87.1 fL (80.0-94.0); Mean Platelet Volume 10.1 fL (7.4-10.4); Platelet Count 116 10^3/uL (130-400); Red Blood Cell Count 3.25 10^6/uL (4.70-6.10); Red Cell Dist. Width 14.5 % (11.5-14.5); White Blood Cell Count 13.7 10^3/uL (4.8-10.8)
--- NOTE | 2024-02-10 04:50 | W.PN.CT ---
Addendum entered and electronically signed by Scot George MD 02/10/24 07:59:
I saw and examined the patient.
The PA's note was reviewed and I agree with the note.
Comment:
Doing well
POD#1 mgmt
Original Note:
Today's Communication / Plan
-
-pod #1
-no issues overnight
-CI 2.76, CO 5.57. Drips: Insulin. Dobut off at midnight
-CT output: 2 meds 75/165, 2 pleur 155/250 in 12/24 hrs
-deline
-d/c Cabezas
-continue insulin
-current meds (ASA, Plavix, Lopressor, Amio, Protonix)
-encourage IS, OOB
Assessment / Plan
-
-s/p CABG x 4 (RUPAL to LAD, GSV to OM1, GSV to terminal LCx (L PLB), GSV to R PDA); ELAA w/ 35mm AtriClip; Drainage of B/L effusions on 02/09/[address] George, pod #1
-Post-PONCHO: Normal biventricular function w/ no RWMA, mild-to-mod AI, mild MR (improved from preop), IRENE no longer visible
-Multivessel CAD (including occluded RCA, 80% ostial/distal LM)
-Hx CAD S/P PCI with stents (2003, 2006)
-NSTEMI @ [facility] (peak trop 2164)
-USA
-Brilinta washout (Last dose AM of 02/05/24)
-S/P IABP @ [facility]- dcd on 02/06/24 @
-Acute hypoxic respiratory failure; prior to admission, now resolved
-Acute diastolic CHF
-LVEF 60-65% per TTE 10/07/22 @ [facility]
-No significant valvular disease
-Hx CVA (2015)
-HTN
-Hyperlipidemia
-T2DM (A1C 7.2)
-Class 1 obesity (BMI 30)
-Esophageal Ca (completed chemo 12/2023, denies dysphagia)
-Moderate Protein Calorie Malnutrition
-Prostate Ca (under surveillance)
-Former tobacco use (1.5 pk/day x 25 yrs; quit 30 yrs ago)
-LE 2+ pitting edema (states post chemo therapy)
-Ambulatory dysfunction post chemotherapy/ R foot drop
-S/P Left teena cath
-S/P L TKA with revision
-S/P R rotator cuff repair
-S/P B/L cataracts
-S/p Loop recorder (2019)
- R foot drop
-Paroxysmal a-fib with RVR 150s on 02/07/24 with CP and ischemia on ECG- tx with sl Nitro x3 and drip, iv Lopressor, iv Mg - converted to nsr with resolution of CP. TEG profile drawn>platelets 12% inhibited.
-Low grade temp 100.5 on 02/06 with urinary incontinence (Cabezas from [facility] was dcd)- UA normal
-Anemia preop with postop acute blood loss anemia- s/p 2 pRBCs 02/08
-Pre and postop thrombocytopenia
-Acute postop hypovolemia with subsequent hypervolemia
-Acute postop atelectasis
Discussed patient care with: Nursing and Care Team
Subjective
Procedure
-s/p CABG x 4 (RUPAL to LAD, GSV to OM1, GSV to terminal LCx (L PLB), GSV to R PDA); ELAA w/ 35mm AtriClip; Drainage of B/L effusions on 02/09/[address] George
-
Date of Service: February 10, 2024
Objective Data
-
PT 16.7 Sec (11.4-14.6) H 02/09/24 13:32
INR 1.38 02/09/24 13:32
APTT 29.3 Sec (23.4-35.0) 02/09/24 13:32
Vital Signs
Vital Signs
Temp Pulse Resp BP Pulse Ox
98.8 F 99 12 107/55 100
02/10/24 00:20 02/10/24 00:22 02/10/24 00:22 02/10/24 00:20 02/10/24 00:22
CT Intake/Output/Weight
02/09/24 02/09/24 02/10/24
06:59 18:59 06:59
Intake Total 798.4 / 1069.4 568.7 / 874.8 306.1 / 874.8
Output Total 1750 / 2700 1160 / 1705 545 / 1705
Balance -951.6 / -1630.6 -591.3 / -830.2 -238.9 / -830.2
SaO2: 100
Physical Exam
-
General: Awake and AOx3
Cardiovascular: Regular rate & rhythm, No Murmurs and Rub
Respiratory: Decreased Breath Sounds
Sternum: Stable
Incision: Clean, Dry and Dressing Intact
Extremities: Edema +2 (DP by Doppler b/l)
Data Reviewed
-
Lab Results: Results Reviewed
Medications: Active Meds Reviewed
Chest X-Ray: Report Reviewed and Image Reviewed
ECG: Report Reviewed and Image Reviewed
[2024-02-10 04:59] LABS: Blood Urea Nitrogen 14 mg/dl (9-20); Calcium 8.1 mg/dl (8.4-10.2); Carbon Dioxide 23 mmol/L (22-30); Chloride 104 mmol/L (98-107); Estimated Creatinine Clearance 92 ml/min; Glucose 102 mg/dl (70-99); Magnesium 2.2 mg/dl (1.6-2.3); Potassium 4.2 mmol/L (3.5-5.1); Sodium 137 mmol/L (135-145); eGFR > 60.00
[2024-02-10] MEDS: TYLENOL 1000 MG PO ×3 (05:37→22:22)
[2024-02-10] MEDS: DILAUDID 0.25 MG IV (05:37)
[2024-02-10 06:05] LABS: Glucose - Point of Care 93 mg/dl (70-99)
--- NOTE | 2024-02-10 06:25 | PTCARENOTE ---
Patient with c/o nausea. No vomiting. Zofran 4mg IV administered - No further c/o nausea. Patient A+A+Ox3. No neurological deficits noted. C.O. 5.57 C.I. 2.76 AM labs collected and sent. EKG completed. Portable CXR completed. IV Dilaudid
0.25 mg given for 5/10 sternal pain with positive relief provided. De-Lined patient without difficulty. Left Brachial Arterial line removed by ZACK for CT Surgery, Molly Montalvo PA-C, 20 minutes manual pressure - No bleeding issues. Cabezas
catheter removed without difficulty at 0600 - Time and amount - Due to void at 12pm. OOB to chair in AM. Assessment/Interventions as documented.
--- NOTE | 2024-02-10 06:30 | W.PN.CARD.SR ---
Sheath/IABP Sheath Removal
Sheath Removal
Left Arterial Brachial:
Site appearance prior to sheath removal: Intact
Size of hematoma in cm: 0
Sheath removed by:: Physician marketing operations assistant
Name of associate removing sheath: Molly Montalvo
Time of sheath removal: 06:10
Time hemostasis achieved: 06:25
Site appearance post sheath removal: Intact
Size of hematoma in cm: 0
Method of Hemostasis Post Sheath Removal: Manual Pressure
Dressing dry and intact?: Yes
Comments: brachial site is cdi, no hematoma. Brachial, radial, ulnar pulses are easily dopplerable.
--- NOTE | 2024-02-10 06:58 | W.PN.INTV ---
Today's Communication / Plan
Recommendations
IS
Reconsult prn
Assessment
-
Assessment:
Mr Joseph Lucero is a 74/M adm in transfer from [facility] on 02-04 for evaluation of ACS in setting of known h/o CAD s/p stents in 2003 and 2006, [facility] positive for MVD. Seen by Cards and CTSx upon adm, candidate for CABG, plavix held, prepared for surgery.
Received CABG 03-[address] George
Impression:
Multivessel CAD
S/p CABGx4 02-08
Preop new onset AFib with RVR 02-07, brief, self resolved
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
CAD
Loop recorder
HTN
HLD
NIDDM
Esophageal cancer, s/p chemorx and immunotherapy completed at [facility] 1 m AS400 ANALYST. L chest port-A-cath
Prostate cancer, s/p therapy
CVA 8 y ago, ocular symptoms
L knee replacement
R rotator cuff repair
Nonsmoker
Plan:
Extubated post surgery
Noted preop spirometry with moderate obstruction. Reportedly not on outpatient BDs or inpatient BDs
Continue albuterol nebs prn
Postop CXR with mild pulm vasc congestion. ETT, TIJ SG in place, sternotomy wiring, chest/med tubes in place
Today's CXR with interim extubation, no infiltrates
Pulmonary artery catheter parameters will be followed
Pressors/antihypertensive/inotropes/diuretics will be provided as needed
Monitor chest tube output
Monitor hemoglobin
Monitor platelet count and coags
Transfuse blood product if needed
CT surgery following chest tubes
Monitor blood sugar
Insulin drip per protocol
DVT prophylaxis
Early nutrition
Early mobilization
Reconsult prn
Subjective Dataa
Subjective Data
Date of Service:
Date of Service: February 10, 2024
Chief Complaint: Lining Sewer Follow Up
Subjective:
No major events reported overnight
Extubated postsurgery
Doing well in the postoperative.
Review of Systems
General: Fever (n), Sweats (n), Chills and Satisfactory Appetite
HEENT: Epistaxis (n) and Dysphagia (n)
Cardiopulmonary: Dyspnea and Chest Pain (incisional)
GI: Abdominal Pain (n), Nausea (n) and Vomiting (n)
Neuro: Weakness
Objective Data
Data Reviewed
Vital Signs / I&O / Oxygen:
Vital Signs
Temp Pulse Resp BP Pulse Ox
99.1 F 101 16 120/62 98
02/10/24 05:00 02/10/24 05:00 02/10/24 05:00 02/10/24 04:15 02/10/24 05:00
Intake and Output
02/08/24 02/09/24 02/10/24
06:59 06:59 06:59
Intake Total 1064.2 / 1064.2 1069.4 / 1069.4 1194.2 / 1194.2
Output Total 1600 / 1600 2700 / 2700 2089 / 2089
Balance -535.8 / -535.8 -1630.6 / -1630.6 -895.8 / -895.8
SaO2 [CPAP/PSV] 100
SaO2 [SIMV] 100
SaO2 98
Nasal Cannula flow liters per 2
minute
Physical Exam
General: Comfortable
HEENT: Normocephalic and Moist Mucous Membranes
Cardiovascular: Regular Rhythm and Peripheral Edema (n)
Respiratory: Clear, Non-Labored Respirations and Chest Tube
GI: Soft, Non Distended and Non Tender
Neurology: Awake, AO x 3 and No Motor Deficits
Skin: Warm
Labs/Micro/Reports
Lab Data
02/10/24 04:00
02/10/24 04:00
Laboratory Results
02/09/24 02/09/24
13:32 16:53
PT 16.7 H
INR 1.38
APTT 29.3
pH 7.42 7.40
pCO2 38 36
pO2 175 H 154 H
HCO3 24.6 22.3
O2 Delivery Level
--- NOTE | 2024-02-10 07:00 | PTCARENOTE ---
Bedside walking rounds report received: patient seen on rounds resting in chair on 2l nasal canula. Awake alert and oriented x 3. Nasal canula oxygen titrated down to to room air. NSR to ST on monitor. Chest tubes x 4 (2 meds/right and left
pleural): serosanguineous fluid and no dumping with patient sitting upright. See flowrecord for remaining assessments and pain management documentation
[2024-02-10] MEDS: NIASPAN TIME RELEASE 500 MG PO ×2 (07:50→19:26)
[2024-02-10] MEDS: MAGNESIUM OXIDE 500 MG PO ×2 (07:51→19:26)
[2024-02-10] MEDS: LOW STRENGTH ASPIRIN 81 MG PO (07:51)
[2024-02-10] MEDS: LOPRESSOR 12.5 MG PO ×3 (07:51→14:08)
[2024-02-10] MEDS: PROTONIX 40 MG PO (07:51)
[2024-02-10] MEDS: VITAMIN C 1500 MG PO (07:51)
[2024-02-10] MEDS: FLEXERIL 5 MG PO ×2 (07:51→17:06)
[2024-02-10] MEDS: PLAVIX 75 MG PO (07:52)
[2024-02-10] MEDS: NEURONTIN 100 MG PO ×3 (07:52→22:18)
[2024-02-10] MEDS: SENOKOT-S 1 TABLET PO ×2 (07:52→19:26)
[2024-02-10] MEDS: LIDOCAINE 4% PATCH 1 PATCH TOPICAL (07:53)
[2024-02-10] MEDS: PACERONE 200 MG PO ×3 (07:53→22:22)
[2024-02-10] MEDS: BACTROBAN 2% OINTMENT 1 APPLIC NASAL ×2 (07:54→19:28)
[2024-02-10 08:10] LABS: Glucose - Point of Care 137 mg/dl (70-99)
--- NOTE | 2024-02-10 08:14 | W.PN.CD ---
Today's Communication / Plan
-
Continue post op care
OOB and walking
Impression / Plan
-
Impression/Plan: 74 y/o male with HTN, HLD, NIDDM, treated esophageal CA and known CAD with prior PCI transferred from [facility] with NSTEMI after coronary angiography demonstrated surgical disease which led to flash pulmonary edema.
#CAD with NSTEMI s/p CABG x 4 (RUPAL to LAD, GSV to OM1, GSV to terminal LCx (L PLB), GSV to R PDA); ELAA w/ 35mm AtriClip; Drainage of B/L effusions on 02/09/[address] George
-Troponin I peaked at 2164 at [facility].
-Continue ASA 81 mg daily and heparin drip.
-Last dose of clopidogrel on 02/05/2024.
-Cardiac catheterization with 80% distal left main, ostial LAD 60%, ostial and proximal LCx 50%, RCA 100% with L to R collaterals.
-overally doing well
- restarting medications
#Paroxysmal atrial fibrillation with RVR, now SR
-New diagnosis.
-Occurred 02/08/24, again last night. Symptomatic and lasting minutes.
-Currently in NSR.
#Temp
-Isolated reading of 100.5 in last 24 hours.CXR 02/07/24 without infiltrate and UA unremarkable.
-Etiology unclear. Monitor for recurrence.
#Pulmonary edema
-Acute, occurred during catheterization at [facility] . no recurrence since at
#Esophageal cancer
-Did not tolerate pembrolizumab.
-Completed treatment last month at [facility].
#Prior prostate cancer
-Reports esophageal cancer treatment also treated his prostate cancer.
#NIDDM
-Chronic, stable.
-HbA1c = pending.
#Dyslipidemia
-Chronic, stable.
-update fasting lipid panel, goal LDL <55
#CVA, 2016
Subjective/Interval History:
Recurrent afib overnight.
Nitro restarted and metoprolol given.
Field Investigator: Dr. Colunga
DATA:
TTE, 02/06/2024:
CONCLUSIONS
Normal left ventricular size, wall thickness and systolic function.
No regional wall motion abnormalities are seen.
LV ejection fraction is 55-60% by visual assessment.
Normal right ventricular size and function.
Mild aortic regurgitation.
Compared to prior from October 07, 2022, aortic regurgitation is mild from
trace.
Carotid Duplex US, 02/06/2024:
IMPRESSION: Minimal carotid bulb plaque on each side, measurements suggestive of less than 50% stenosis on each side as per modified Society of Radiologists in Ultrasound consensus criteria (IAC carotid criteria white paper, 2020).
Physical Exam
Vital Signs/Labs
Vital Signs
Temp Pulse Resp BP Pulse Ox
98 F 107 18 103/61 97
02/10/24 07:45 02/10/24 07:45 02/10/24 07:45 02/10/24 07:45 02/10/24 07:45
02/09/24 02/10/24 02/11/24
06:59 06:59 06:59
Actual Weight 194 lb 0.108 oz 198 lb 6.656 oz
02/10/24 04:00
02/10/24 04:00
PT 16.7 Sec (11.4-14.6) H 02/09/24 13:32
INR 1.38 02/09/24 13:32
APTT 29.3 Sec (23.4-35.0) 02/09/24 13:32
Magnesium 2.2 mg/dl (1.6-2.3) 02/10/24 04:00
02/06/24
03:55
Yjk-[id number] Pept 1820
Physical Exam
Constitutional: No acute distress
EENT: Anicteric
Cardiovascular: Rhythm & rate is regular
Respiratory: Respiratory effort normal and Lungs clear to auscul.
GI: Soft
Neuro/Psych: AO x 3
Data Reviewed
-
Date of Service: February 10, 2024
Medical Decision Making: Reviewed Test Results
EKG: Tracing Personally Visualized and interpreted (sr)
Echo: Report Reviewed by me
Labs: Labs Reviewed by me
Critical Care Time (in minutes): 31
[2024-02-10] MEDS: NOVOLOG FLEXPEN 4 UNITS SC ×3 (08:23→17:18)
[2024-02-10] MEDS: LASIX 20 MG IV (08:24)
[2024-02-10] MEDS: KCL 20 MEQ PO (08:24)
--- NOTE | 2024-02-10 08:52 | W.PN.ANS.POP ---
Anesthesia Post Operative
- Anesthesia Post Op Note
Vital Signs Stable-See Nursing Note: Yes
Airway Patent: Yes
Adequate Pain Control: Yes
Change in Mental Status: No
Current Postoperative Nausea & Vomiting: No
Anesthesia Complications: No
General Anesthetic Recall: No
Unplanned Admission: No
Post Op Hydration Adequate: Yes
[2024-02-10 10:09] LABS: Glucose - Point of Care 120 mg/dl (70-99)
--- NOTE | 2024-02-10 11:30 | PTCARENOTE ---
Stood up with assist of 2 nurses moderate assist: marched in place briefly: no 'dumping'from chest tubes. Angelic aware of need for reconsult of PT and OT. New orders received.
[2024-02-10 12:31] LABS: Glucose - Point of Care 129 mg/dl (70-99)
[2024-02-10] MEDS: NSS IV (13:35)
[2024-02-10 14:25] LABS: Glucose - Point of Care 182 mg/dl (70-99)
--- NOTE | 2024-02-10 14:30 | PTCARENOTE ---
No acute changes. Vital signs stable. Sinus tach
[2024-02-10 15:34] LABS: Glucose - Point of Care 168 mg/dl (70-99)
--- NOTE | 2024-02-10 16:30 | PTCARENOTE ---
Remains oob in chair. Room air. Bladder scanned for 458ml. RESIDENT PHYSICIAN Angelic aware. No additional new orders at this time. ST on monitor
[2024-02-10] MEDS: LIPITOR 40 MG PO (17:13)
[2024-02-10] MEDS: ZETIA 10 MG PO (17:13)
[2024-02-10 17:18] LABS: Glucose - Point of Care 121 mg/dl (70-99)
--- NOTE | 2024-02-10 17:20 | PTCARENOTE ---
No acute changes. Voided 425ml clear eboni urine without difficulty
[2024-02-10] MEDS: NOVOLIN R INSULIN INFUSION 100 IV (17:23)
--- NOTE | 2024-02-10 17:31 | PTCARENOTE ---
Approx 2 sec short burst earline pérez. JUICE Atwood aware. Remains in sinus tach with rates in the low 100's.
[2024-02-10 18:35] LABS: Glucose - Point of Care 155 mg/dl (70-99)
[2024-02-10] MEDS: LOPRESSOR 50 MG PO (19:06)
[2024-02-10 19:40] LABS: Glucose - Point of Care 189 mg/dl (70-99)
--- NOTE | 2024-02-10 20:00 | PTCARENOTE ---
Assumed care of patient at 1900. Patient found OOB in chair at time of assessment. Patient is AOx4, has foot drop in the RLE, and reports weakness in the R leg. Lung sounds are diminished throughout, saO2 94% on RA, CTx4: 2xmeds to one atrium and
R/L pleural to one atrium draining serosanguineous. Heart tones are audible, there is a rub present on auscultation, patient is ST on the monitor. Patient has normal palpable radial pulses and dorsalis pedis is present with doppler. +1 BLE edema is
noted. Patient has soft nontender abdomen with active BS. Patient is voiding clear yellow in urinal. Patient has a sternal incision with aquacell dressing that is CDI, an ABD dressing over CT wounds that is CDI, a L groin puncture site CORE WINDER intact
with ecchymosis from previous IABP access, a R groin puncture approx with surg adhesive JAMES, and RLE incision approx with surg adhesive JAMES. Patient has R IJ cordis receiving KVO and insulin gtt as well as R Hand PIV. Patient received 50 metoprolol
for HR in high 110s to low 120s. Assisted patient back to bed without incident. Patient is stable.
[2024-02-10 20:35] LABS: Glucose - Point of Care 181 mg/dl (70-99)
[2024-02-10 21:39] LABS: Glucose - Point of Care 127 mg/dl (70-99)
[2024-02-10] MEDS: LOPRESSOR 25 MG PO (22:18)
[2024-02-10 23:31] LABS: Glucose - Point of Care 98 mg/dl (70-99)
[2024-02-11] VITALS (31 sets, daily range): BP systolic 98–137; BP diastolic 56–93; PULSE 105; O2SAT 95; BMI 30.4
--- NOTE | 2024-02-11 | PTCARENOTE ---
Patient reassessed. Remains ST to SR. CT DRAFTER (CAD) ELECTRONIC notified patient received extra 25mg metoprolol at 2218. Patient received bryan 5x1 for back pain. Patient is stable.
[2024-02-11 01:31] LABS: Glucose - Point of Care 128 mg/dl (70-99)
[2024-02-11 03:39] LABS: Glucose - Point of Care 96 mg/dl (70-99)
[2024-02-11 04:23] LABS: Hematocrit 27.9 % (39.0-52.0); Hemoglobin 9.1 g/dL (13.0-18.0); Mean Corp Hgb Conc. 32.6 g/dL (33.0-37.0); Mean Corpuscular Hgb 29.4 pg (27.0-31.0); Mean Corpuscular Volume 90.3 fL (80.0-94.0); Mean Platelet Volume 10.2 fL (7.4-10.4); Platelet Count 132 10^3/uL (130-400); Red Blood Cell Count 3.09 10^6/uL (4.70-6.10); Red Cell Dist. Width 14.5 % (11.5-14.5); White Blood Cell Count 13.1 10^3/uL (4.8-10.8)
[2024-02-11 04:51] LABS: Blood Urea Nitrogen 15 mg/dl (9-20); Carbon Dioxide 29 mmol/L (22-30); Chloride 99 mmol/L (98-107); Estimated Creatinine Clearance 104 ml/min; Glucose 84 mg/dl (70-99); Magnesium 2.1 mg/dl (1.6-2.3); Potassium 3.8 mmol/L (3.5-5.1); Sodium 133 mmol/L (135-145); eGFR > 60.00
--- NOTE | 2024-02-11 04:51 | W.PN.CT ---
Addendum entered and electronically signed by Scot George MD 02/11/24 08:23:
I saw and examined the patient.
The PA's note was reviewed and I agree with the note.
Comment:
POD#2 - doing well
Continue ASA/plavix, lopressor, amio, statin
OOB/IS/ambulate
D/C CTs
Original Note:
Today's Communication / Plan
-
-pod #2
-no issues overnight
-CT output: 2 meds 45/140, 2 pleur 95/205 in 12/24 hrs
-On insulin gtt
-current meds (ASA, Plavix, Lopressor increased, Amio, Protonix, atorvastatin/ezetimibe)
-lidocaine patch/gabapentin/scheduled APAP for pain
-encourage IS, OOB
Assessment / Plan
-
-s/p CABG x 4 (RUPAL to LAD, GSV to OM1, GSV to terminal LCx (L PLB), GSV to R PDA); ELAA w/ 35mm AtriClip; Drainage of B/L effusions on 02/09/[address] George, pod #2
-Post-PONCHO: Normal biventricular function w/ no RWMA, mild-to-mod AI, mild MR (improved from preop), IRENE no longer visible
-Multivessel CAD (including occluded RCA, 80% ostial/distal LM)
-Hx CAD S/P PCI with stents (2003, 2006)
-NSTEMI @ [facility] (peak trop 2164)
-USA
-Brilinta washout (Last dose AM of 02/05/24)
-S/P IABP @ [facility]- dcd on 02/06/24 @ [facility]
-Acute hypoxic respiratory failure; prior to admission, now resolved
-Acute diastolic CHF
-LVEF 60-65% per TTE 10/07/22 @ [facility]
-No significant valvular disease
-Hx CVA (2016)
-HTN
-Hyperlipidemia
-T2DM (A1C 7.2)
-Class 1 obesity (BMI 30)
-Esophageal Ca (completed chemo 12/2023, denies dysphagia)
-Moderate Protein Calorie Malnutrition
-Prostate Ca (under surveillance)
-Former tobacco use (1.5 pk/day x 25 yrs; quit 30 yrs ago)
-LE 2+ pitting edema (states post chemo therapy)
-Ambulatory dysfunction post chemotherapy/ R foot drop
-S/P Left teena cath
-S/P L TKA with revision
-S/P R rotator cuff repair
-S/P B/L cataracts
-S/p Loop recorder (2019)
- R foot drop
-Paroxysmal a-fib with RVR 150s on 02/07/24 with CP and ischemia on ECG- tx with sl Nitro x3 and drip, iv Lopressor, iv Mg - converted to nsr with resolution of CP. TEG profile drawn>platelets 12% inhibited.
-Low grade temp 100.5 on 02/06 with urinary incontinence (Cabezas from [facility] was dcd)- UA normal
-Anemia preop with postop acute blood loss anemia- s/p 2 pRBCs 02/08
-Pre and postop thrombocytopenia
-Acute postop hypovolemia with subsequent hypervolemia
-Acute postop atelectasis
Subjective
Procedure
-s/p CABG x 4 (RUPAL to LAD, GSV to OM1, GSV to terminal LCx (L PLB), GSV to R PDA); ELAA w/ 35mm AtriClip; Drainage of B/L effusions on 02/09/[address] George
-
Date of Service: February 11, 2024
No overnight events. Given IV lasix yesterday, BB increased. Ambulated without difficulty.
Objective Data
-
Lab Results
02/11/24 04:07
PT 16.7 Sec (11.4-14.6) H 02/09/24 13:32
INR 1.38 02/09/24 13:32
APTT 29.3 Sec (23.4-35.0) 02/09/24 13:32
Vital Signs
Vital Signs
Temp Pulse Resp BP Pulse Ox
98.3 F 110 20 118/69 93
02/11/24 03:00 02/11/24 04:30 02/11/24 03:00 02/11/24 04:00 02/11/24 03:00
CT Intake/Output/Weight
02/10/24 02/10/24 02/11/24
06:59 18:59 06:59
Intake Total 625.5 / 1194.2 1551.4 / 1689.7 138.3 / 1689.7
Output Total 930 / 2090 980 / 1080 100 / 1080
Balance -304.5 / -895.8 571.4 / 609.7 38.3 / 609.7
SaO2: 93
Physical Exam
-
General: Awake, Oriented and AOx3
Cardiovascular: No Murmurs, No Rub and Other (fast rate regular rhythm )
Respiratory: Clear and Decreased Breath Sounds
Sternum: Stable
Incision: Clean, Dry and Intact
Extremities: Edema +2
Data Reviewed
-
Lab Results: Results Reviewed
Medications: Active Meds Reviewed
Chest X-Ray: Report Reviewed
ECG: Report Reviewed
--- NOTE | 2024-02-11 04:51 | PTCARENOTE ---
Patient reassessed. VSS. No c/o pain at this time. AM labs obtained.
[2024-02-11] MEDS: TYLENOL 1000 MG PO ×2 (05:26→22:58)
[2024-02-11 05:40] LABS: Glucose - Point of Care 129 mg/dl (70-99)
[2024-02-11] MEDS: KCL 20 MEQ PO (05:56)
--- NOTE | 2024-02-11 07:00 | PTCARENOTE ---
Addendum entered by Bran Sibley RN 02/11/24 10:12:
Correction: straight cath for 650ml clear eboni urine.
Original Note:
Bedside walking rounds report received. Patient seen on rounds resting in chair. Sitting upright in chair trying to use urinal for the last '20 minutes' unable to urinate. Bladder scanned at 8am for 625ml: straigt cath for 550ml of clear eboni urine
without difficulty. Sinus tach on monitor. Beta rita increased this am. Plan: dc all chest tubes later this am and increase ambulation. See flowrecord for remainiing assessments.
[2024-02-11] MEDS: LOPRESSOR 100 MG PO (07:14)
--- NOTE | 2024-02-11 07:30 | PTCARENOTE ---
Patient scanned for 525mL in the bladder. Patient unable to void on attempt. Info relayed to mara GUTIERREZ.
[2024-02-11 07:50] LABS: Glucose - Point of Care 161 mg/dl (70-99)
[2024-02-11] MEDS: PROTONIX 40 MG PO (07:51)
[2024-02-11] MEDS: JANUVIA 100 MG PO (07:51)
[2024-02-11] MEDS: NIASPAN TIME RELEASE 500 MG PO ×2 (07:51→19:45)
[2024-02-11] MEDS: PLAVIX 75 MG PO (07:51)
[2024-02-11] MEDS: VITAMIN C 1500 MG PO (07:51)
[2024-02-11] MEDS: JARDIANCE 10 MG PO (07:52)
[2024-02-11] MEDS: KCL 40 MEQ PO (07:52)
[2024-02-11] MEDS: FLOMAX 0.400000000000000022 MG PO (07:52)
[2024-02-11] MEDS: MAGNESIUM OXIDE 500 MG PO (07:52)
[2024-02-11] MEDS: LOW STRENGTH ASPIRIN 81 MG PO (07:52)
[2024-02-11] MEDS: PACERONE 200 MG PO ×3 (07:53→22:58)
[2024-02-11] MEDS: NEURONTIN 100 MG PO ×3 (07:53→22:58)
[2024-02-11] MEDS: SENOKOT-S 1 TABLET PO ×2 (07:53→19:44)
[2024-02-11] MEDS: GLUCOPHAGE 1000 MG PO ×2 (07:53→16:33)
[2024-02-11] MEDS: AMARYL 2 MG PO (07:53)
[2024-02-11] MEDS: LASIX 40 MG IV (07:54)
[2024-02-11] MEDS: NOVOLOG FLEXPEN 4 UNITS SC (07:55)
[2024-02-11] MEDS: BACTROBAN 2% OINTMENT 1 APPLIC NASAL ×2 (07:58→20:06)
[2024-02-11] MEDS: LIDOCAINE 4% PATCH 1 PATCH TOPICAL (07:59)
--- NOTE | 2024-02-11 10:00 | PTCARENOTE ---
No acute changes. Patient is now able to void on own: 450ml clear straw color urine passed without difficulty. NSR with rates in the 80's
[2024-02-11] MEDS: NOVOLOG FLEXPEN-MODERATE RESISTANCE SC (11:00)
--- NOTE | 2024-02-11 12:00 | PTCARENOTE ---
Assoisted back to bed. Chest tubes x 4 dc by JUICE Atwood with RN assist. Sutures tied purse string.
[2024-02-11 12:48] LABS: Glucose - Point of Care 165 mg/dl (70-99)
[2024-02-11] MEDS: NOVOLOG FLEXPEN-MODERATE RESISTANCE 1 UNITS SC (13:08)
[2024-02-11] MEDS: DILAUDID 0.25 MG IV (14:56)
[2024-02-11] MEDS: TYLENOL PO (16:32)
[2024-02-11] MEDS: NSS 500 IV (16:32)
[2024-02-11 16:42] LABS: Glucose - Point of Care 208 mg/dl (70-99)
[2024-02-11] MEDS: NOVOLOG FLEXPEN-MODERATE RESISTANCE 3 UNITS SC (16:45)
--- NOTE | 2024-02-11 16:57 | PTCARENOTE ---
patient is oob in chair. Patient noted to be in uncontrolled a fibb with rates in the 160's : JUICE Atwood aware: maintaining bp's with same and patient is asymptomatic when asked. New orders received. Will obtain stat BMP and do amio bolus and gtt.
[2024-02-11] MEDS: ZETIA 10 MG PO (17:24)
[2024-02-11] MEDS: LIPITOR 40 MG PO (17:24)
[2024-02-11] MEDS: CORDARONE 103 MG IV ×2 (17:24→20:05)
[2024-02-11] MEDS: CORDARONE 518 MG IV (17:40)
--- NOTE | 2024-02-11 17:46 | PTCARENOTE ---
Patient converted from afibb to sinus tach. JUICE Atwood aware. Will give cacl bolus based on BMP reported results.
[2024-02-11 17:47] LABS: Blood Urea Nitrogen 17 mg/dl (9-20); Calcium 8.2 mg/dl (8.4-10.2); Carbon Dioxide 21 mmol/L (22-30); Chloride 96 mmol/L (98-107); Estimated Creatinine Clearance 91 ml/min; Glucose 196 mg/dl (70-99); Magnesium 2.1 mg/dl (1.6-2.3); Sodium 131 mmol/L (135-145); eGFR > 60.00
[2024-02-11] MEDS: CALCIUM GLUCONATE 100 IV (18:47)
[2024-02-11] MEDS: LOPRESSOR 5 MG IV (19:44)
[2024-02-11] MEDS: MAGNESIUM SULFATE 50 IV (19:45)
[2024-02-11] MEDS: MAGNESIUM OXIDE PO (19:45)
--- NOTE | 2024-02-11 19:47 | PTCARENOTE ---
Patient received from [facility] nurse. Patient is alert and oriented x4, flat affect. Denies pain/discomfort. Afib with RVR at 1916 with HR up to 180s - patient asymptomatic, denying palpitations, racing heartbeat, and dizziness. CV MANAGER OPERATIONS AND PROCUREMENT ordered 5mg IV
Lopressor, said if the HR is still high, will order another amio bolus. Amio gtt maintained at 1mg/min. Irregular apical pulse. HR 140s-180s. Audible heart tones. +rub. BP 106/69. Palpable radial pulses, doppler dorsalis pedal and posterior tibial
pulses. +2 LE edema. RIJ cordis maintained with KVO. PIV maintained. RA. Oxygen saturation 94%. Upon auscultation, lung sounds diminished throughout. IS 750. Abdomen round, obese. +BS. Per patient, passing gas but no BM. Voids in urinal (difficulty
at times). Sternal aquacell is clean, dry, intact. R groin puncture site is approximated with surgical adhesive and open to air. R knee incision x3 is approximated with surgical adhesive and open to air. L groin puncture site (old IABP site) is
scabbed with ecchymosis. Assist x2 from chair to bed r/t elevated HR.
--- NOTE | 2024-02-11 20:32 | PTCARENOTE ---
Patient converted from afib to NSR with HR 80s at 2017 after additional amio bolus. BP 116/65. 1hr afib. CV YACHT MASTER aware.
[2024-02-11] MEDS: LOPRESSOR 75 MG PO (22:57)
[2024-02-11 23:09] LABS: Glucose - Point of Care 201 mg/dl (70-99)
--- NOTE | 2024-02-11 23:23 | PTCARENOTE ---
Vital signs stable. NSR. HR 80s-90s. BP 130/65. 75mg Metoprolol administered at 2257 once patient's BP was stabilized for a couple hours post afib. RIJ cordis maintained with KVO. Amio gtt maintained at 1mg/min, will titrate down to 0.5mg/min soon
per protocol. RA. Oxygen saturation 95%. Patient voided 675cc. Patient turned/repositioned with assist x2. Patient very tired, sleeping on/off.
[2024-02-12] VITALS (28 sets, daily range): BP systolic 86–120; BP diastolic 51–88; PULSE 74–81; O2SAT 97–98; BMI 29.9
--- NOTE | 2024-02-12 04:32 | W.PN.CT ---
Today's Communication / Plan
-
-pod #3
-Afib with RVR up to 170s yesterday, s/p amio bolus x2 and PO/IV metoprolol, back in NSR today
-BB increased now to 125 mg, reported to be on 200 mg at home
-Now off insulin gtt on oral DM meds
-current meds (ASA, Plavix, Lopressor increased, Amio, Protonix, atorvastatin/ezetimibe)
-lidocaine patch/gabapentin/scheduled APAP for pain
-encourage IS, OOB
Assessment / Plan
-
-s/p CABG x 4 (RUPAL to LAD, GSV to OM1, GSV to terminal LCx (L PLB), GSV to R PDA); ELAA w/ 35mm AtriClip; Drainage of B/L effusions on 02/09/[address] George, pod #3
-Post-PONCHO: Normal biventricular function w/ no RWMA, mild-to-mod AI, mild MR (improved from preop), IRENE no longer visible
-Multivessel CAD (including occluded RCA, 80% ostial/distal LM)
-Hx CAD S/P PCI with stents (2003, 2006)
-NSTEMI @ [facility] (peak trop 2164)
-[place]
-Brilinta washout (Last dose AM of 02/05/24)
-S/P IABP @ [facility]- dcd on 02/06/24 @ [facility]
-Acute hypoxic respiratory failure; prior to admission, now resolved
-Acute diastolic CHF
-LVEF 60-65% per TTE 10/07/22 @ [facility]
-No significant valvular disease
-Hx CVA (2015)
-HTN
-Hyperlipidemia
-T2DM (A1C 7.2)
-Class 1 obesity (BMI 30)
-Esophageal Ca (completed chemo 12/2023, denies dysphagia)
-Moderate Protein Calorie Malnutrition
-Prostate Ca (under surveillance)
-Former tobacco use (1.5 pk/day x 25 yrs; quit 30 yrs ago)
-LE 2+ pitting edema (states post chemo therapy)
-Ambulatory dysfunction post chemotherapy/ R foot drop
-S/P Left teena cath
-S/P L TKA with revision
-S/P R rotator cuff repair
-S/P B/L cataracts
-S/p Loop recorder (2019)
- R foot drop
-Paroxysmal a-fib with RVR 150s on 02/07/24 with CP and ischemia on ECG- tx with sl Nitro x3 and drip, iv Lopressor, iv Mg - converted to nsr with resolution of CP. TEG profile drawn>platelets 12% inhibited.
-Low grade temp 100.5 on 02/06 with urinary incontinence (Cabezas from [facility] was dcd)- UA normal
-Anemia preop with postop acute blood loss anemia- s/p 2 pRBCs 02/08
-Pre and postop thrombocytopenia
-Acute postop hypovolemia with subsequent hypervolemia
-Acute postop atelectasis
Subjective
Procedure
-s/p CABG x 4 (RUPAL to LAD, GSV to OM1, GSV to terminal LCx (L PLB), GSV to R PDA); ELAA w/ 35mm AtriClip; Drainage of B/L effusions on 02/09/[address] George
-
Date of Service: February 12, 2024
Afib with RVR noted yesterday evening, s/p amio bolus x2 and metoprolol IV and PO, now in NSR with rate in the 80s. Otherwise no events. CT removed.
Objective Data
-
PT 16.7 Sec (11.4-14.6) H 02/09/24 13:32
INR 1.38 02/09/24 13:32
APTT 29.3 Sec (23.4-35.0) 02/09/24 13:32
Vital Signs
Vital Signs
Temp Pulse Resp BP Pulse Ox
98.2 F 75 16 119/62 95
02/12/24 00:00 02/12/24 04:00 02/12/24 00:00 02/12/24 04:00 02/12/24 00:00
CT Intake/Output/Weight
02/11/24 02/11/24 02/12/24
06:59 18:59 06:59
Intake Total 163.4 / 1714.8 688 / 1378.0 690.0 / 1378.0
Output Total 140 / 1120 2540 / 3215 675 / 3215
Balance 23.4 / 594.8 -1852 / -1837.0 15.0 / -1837.0
SaO2: 95
Physical Exam
-
General: Awake, Oriented and AOx3
Cardiovascular: No Murmurs and No Rub
Respiratory: Clear, Equal and Decreased Breath Sounds
Sternum: Stable
Incision: Clean, Dry and Intact
Extremities: Edema +2 and No Erythema
Data Reviewed
-
Lab Results: Results Reviewed
Medications: Active Meds Reviewed
Chest X-Ray: Report Reviewed
ECG: Report Reviewed
[2024-02-12 05:33] LABS: Hematocrit 26.5 % (39.0-52.0); Hemoglobin 8.7 g/dL (13.0-18.0); Mean Corp Hgb Conc. 32.8 g/dL (33.0-37.0); Mean Corpuscular Hgb 29.4 pg (27.0-31.0); Mean Corpuscular Volume 89.5 fL (80.0-94.0); Mean Platelet Volume 9.9 fL (7.4-10.4); Platelet Count 161 10^3/uL (130-400); Red Blood Cell Count 2.96 10^6/uL (4.70-6.10); Red Cell Dist. Width 14.7 % (11.5-14.5); White Blood Cell Count 11.1 10^3/uL (4.8-10.8)
[2024-02-12] MEDS: TYLENOL 1000 MG PO ×2 (05:50→22:01)
[2024-02-12 06:02] LABS: Blood Urea Nitrogen 17 mg/dl (9-20); Carbon Dioxide 21 mmol/L (22-30); Chloride 95 mmol/L (98-107); Estimated Creatinine Clearance 91 ml/min; Glucose 178 mg/dl (70-99); Magnesium 2.5 mg/dl (1.6-2.3); Potassium 4.3 mmol/L (3.5-5.1); Sodium 130 mmol/L (135-145); eGFR > 60.00
--- NOTE | 2024-02-12 07:00 | PTCARENOTE ---
Bedside walking rounds report received. Patient seen on rounds oob in chair on room air. NSR with rates much better controlled than previous day rates in the 80's. Amio gtt on per protocol at 0.5mg/min via pump via right IJ cordis. Denies pain,
except chronic lower back pain. Improving physically, but sill deconditioned reqiring moderate to max assist of [address] surgical rounds: new orders received. Will give PO lasix today to continue diuresis. See flowrecord for
remaining assessments
[2024-02-12] MEDS: NOVOLOG FLEXPEN-MODERATE RESISTANCE 1 UNITS SC (08:19)
[2024-02-12] MEDS: PACERONE 200 MG PO ×3 (08:20→22:02)
[2024-02-12] MEDS: PLAVIX 75 MG PO (08:20)
[2024-02-12] MEDS: AMARYL 2 MG PO ×2 (08:21→09:45)
[2024-02-12] MEDS: LOW STRENGTH ASPIRIN 81 MG PO (08:21)
[2024-02-12] MEDS: JARDIANCE 10 MG PO (08:22)
[2024-02-12] MEDS: NIASPAN TIME RELEASE 500 MG PO ×2 (08:22→20:13)
[2024-02-12] MEDS: PROTONIX 40 MG PO (08:22)
[2024-02-12] MEDS: LOPRESSOR 125 MG PO ×2 (08:23→20:14)
[2024-02-12] MEDS: JANUVIA 100 MG PO (08:24)
--- NOTE | 2024-02-12 08:24 | W.PN.CD ---
Today's Communication / Plan
-
Would diurese today
Impression / Plan
-
Impression/Plan: 74 y/o male with HTN, HLD, NIDDM, treated esophageal CA and known CAD with prior PCI transferred from [facility] with NSTEMI after coronary angiography demonstrated surgical disease which led to flash pulmonary edema.
#CAD with NSTEMI s/p CABG x 4 (RUPAL to LAD, GSV to OM1, GSV to terminal LCx (L PLB), GSV to R PDA); ELAA w/ 35mm AtriClip; Drainage of B/L effusions on 02/09/[address] George
-Troponin I peaked at 2164 at [facility].
-Continue ASA 81 mg daily. Resume plavix 75 qd when bleeding no longer a major concern (indication is [place]. duration of DAPT 9-12 mo)
-Cardiac catheterization with 80% distal left main, ostial LAD 60%, ostial and proximal LCx 50%, RCA 100% with L to R collaterals.
-continues to improve
#Paroxysmal atrial fibrillation with RVR, now SR
-New diagnosis.
-Occurred 02/08/24, again last night. Symptomatic and lasting minutes.
-Currently in NSR. Continue metoprolol and amiodarone
#Pulmonary edema
-Acute, occurred during catheterization at [facility] . no recurrence since at
- Wt almost at preop level. Would diurese again today (1+ bilat LE edema)
#Esophageal cancer
-Did not tolerate pembrolizumab.
-Completed treatment last month at [facility].
#Prior prostate cancer
-Reports esophageal cancer treatment also treated his prostate cancer.
#NIDDM
-Chronic, stable.
-HbA1c = pending.
#Dyslipidemia
-Chronic, stable.
-update fasting lipid panel, goal LDL <55
#CVA, 2016
Subjective/Interval History:
Recurrent afib overnight.
Nitro restarted and metoprolol given.
Rubber Block Layer: Dr. Colunga
DATA:
TTE, 02/06/2024:
CONCLUSIONS
Normal left ventricular size, wall thickness and systolic function.
No regional wall motion abnormalities are seen.
LV ejection fraction is 55-60% by visual assessment.
Normal right ventricular size and function.
Mild aortic regurgitation.
Compared to prior from October 07, 2022, aortic regurgitation is mild from
trace.
Carotid Duplex US, 02/06/2024:
IMPRESSION: Minimal carotid bulb plaque on each side, measurements suggestive of less than 50% stenosis on each side as per modified Society of Radiologists in Ultrasound consensus criteria (IAC carotid criteria white paper, 2020).
Physical Exam
Vital Signs/Labs
Vital Signs
Temp Pulse Resp BP Pulse Ox
98.1 F 84 18 116/62 96
02/12/24 07:49 02/12/24 07:49 02/12/24 07:49 02/12/24 07:49 02/12/24 07:49
02/11/24 02/12/24 02/13/24
06:59 06:59 06:59
Actual Weight 199 lb 15.348 oz 196 lb 13.965 oz
02/12/24 05:13
02/12/24 05:13
PT 16.7 Sec (11.4-14.6) H 02/09/24 13:32
INR 1.38 02/09/24 13:32
APTT 29.3 Sec (23.4-35.0) 02/09/24 13:32
Magnesium 2.5 mg/dl (1.6-2.3) H 02/12/24 05:13
02/06/24
03:55
Grw-H-Rgalshxtfwb Pept 1820
Physical Exam
Constitutional: No acute distress and Comfortable
Cardiovascular: Rhythm & rate is regular
Respiratory: Respiratory effort normal and Lungs clear to auscul.
GI: Non tender
Neuro/Psych: AO x 3 and Motor deficits absent
Data Reviewed
-
Date of Service: February 12, 2024
[2024-02-12] MEDS: SENOKOT-S 1 TABLET PO ×2 (08:25→20:14)
[2024-02-12] MEDS: VITAMIN C 1500 MG PO (08:25)
[2024-02-12] MEDS: MAGNESIUM OXIDE 500 MG PO ×2 (08:25→20:13)
[2024-02-12] MEDS: LIDOCAINE 4% PATCH 1 PATCH TOPICAL (08:25)
[2024-02-12] MEDS: NEURONTIN 100 MG PO ×3 (08:25→22:02)
[2024-02-12] MEDS: FLOMAX 0.400000000000000022 MG PO (08:25)
[2024-02-12] MEDS: GLUCOPHAGE 1000 MG PO ×2 (08:25→17:12)
[2024-02-12] MEDS: BACTROBAN 2% OINTMENT 1 APPLIC NASAL ×2 (08:26→20:13)
[2024-02-12 08:27] LABS: Glucose - Point of Care 162 mg/dl (70-99)
--- NOTE | 2024-02-12 08:33 | PN.DE.MGMTRT ---
Insulin Management
- -
02/12/2024: Diabetes Management F/U:
Patient transferred from [facility] 02/04 s/p chest pain, cardiac cath. PMH CAD, esophageal CA, prostate CA, HTN, CVA, HCL, T2DM, [place], pulmonary edema. Prior to admission was taking glimepiride 2 mg daily, metformin 1000 BID and Janumet 100/1000
PM. A1C 7.2, cr .7, eGFR >60.
Patient awake, alert, sitting up in chair, offers no complaints, able to discuss diabetes management.
He is POD #3, s/p CABG x 4. Pt was transitioned off insulin drip to his OP oral regimen including Jardiance yesterday.
Glucose is out of range, @ HS POC was 208, premeal glucose is 161 to 208
Will increase glimepiride to 4mg daily. Pt already received his AM dose will give an additional 2mg NOW.
Meds at D/C: Glimepiride 4 mg daily, Metformin 1000 BID and Januvia 100 mg daily and Jardiance 10 mg daily
Discussed diabetes plan of care and medication regimen with pt in detail, Nurse at bedside.
Will return to provide pt with glucose meter for home use.
Diabetes History
- -
Type of Diabetes: 2
Pre-Admission Diabetes Regimen
02/11/24 02/12/24
17:13 05:13
Creatinine 0.8 0.8
Lab Results
Hemoglobin A1c 7.2 % (4.0-5.6) H 02/05/24 18:39
Insulin Pump Settings
IP Diabetes Regimen
02/11/24 02/11/24 02/11/24
12:47 16:41 17:13
Glucose 196 H
POC Glucose 165 H 208 H
02/11/24 02/12/24 02/12/24
23:05 05:13 08:14
Glucose 178 H
POC Glucose 201 H 162 H
Meal type: Dinner
Patient Education
[2024-02-12] MEDS: LASIX 40 MG PO (09:45)
--- NOTE | 2024-02-12 10:44 | CM ---
Chart reviewed. Patient is independent of ADLS, lives with his in a [address], [facility], was not using a SPC or walker for at least a month prior to admission but has them both in the house. PT evaluation recommending SNF. Patient is agreeable.
Referrals sent to [facility]. Patient will need insurance authorization. Plan is for the patient to go to a SNF when medically stable. CM to follow
--- NOTE | 2024-02-12 11:15 | PTCARENOTE ---
Ambulated hallway 125feet on room air with assist and was a moderate to max assist of 1 to stand from seated position. See post activity vitals.
[2024-02-12 12:34] LABS: Glucose - Point of Care 248 mg/dl (70-99)
[2024-02-12] MEDS: NOVOLOG FLEXPEN-MODERATE RESISTANCE 3 UNITS SC ×2 (12:49→17:03)
[2024-02-12] MEDS: NSS 500 IV (12:50)
[2024-02-12] MEDS: TYLENOL PO (15:31)
--- NOTE | 2024-02-12 16:30 | PTCARENOTE ---
Patient noted to be in recurrent a fibb uncontrolled with rates 120's to 140's: Willa Jewell PA-c aware of same: new orders received for amiodarone bolus iv janae. Remains oob asymtomatic.
[2024-02-12] MEDS: CORDARONE 103 MG IV (16:48)
[2024-02-12 17:03] LABS: Glucose - Point of Care 241 mg/dl (70-99)
[2024-02-12] MEDS: ZETIA 10 MG PO (17:12)
[2024-02-12] MEDS: LIPITOR 40 MG PO (17:12)
--- NOTE | 2024-02-12 17:42 | PTCARENOTE ---
Patient converted from afibb to NSR with a 1 second pause back to NSR in the 80's briefly than back into a fibb with rates in the 120's to 130's at 6pm.
[2024-02-12 19:11] LABS: Blood Urea Nitrogen 18 mg/dl (9-20); Calcium 7.3 mg/dl (8.4-10.2); Carbon Dioxide 19 mmol/L (22-30); Chloride 89 mmol/L (98-107); Estimated Creatinine Clearance 91 ml/min; Glucose 462 mg/dl (70-99); Magnesium 2.1 mg/dl (1.6-2.3); Potassium 3.6 mmol/L (3.5-5.1); Sodium 123 mmol/L (135-145); eGFR > 60.00
[2024-02-12 19:24] LABS: Glucose - Point of Care 258 mg/dl (70-99)
[2024-02-12 19:49] LABS: Blood Urea Nitrogen 20 mg/dl (9-20); Calcium 8.1 mg/dl (8.4-10.2); Carbon Dioxide 23 mmol/L (22-30); Chloride 93 mmol/L (98-107); Estimated Creatinine Clearance 81 ml/min; Glucose 240 mg/dl (70-99); Magnesium 2.3 mg/dl (1.6-2.3); Potassium 3.8 mmol/L (3.5-5.1); Sodium 130 mmol/L (135-145); eGFR > 60.00
--- NOTE | 2024-02-12 20:00 | PTCARENOTE ---
assumed care of pt from previous RN. pt A&Ox4, resting in chair at time of assessment. pt assist x1 w/ walker. a fib w/ RVR on tele-monitor. POX 96% on RA. abd s/n, +BS. pt voiding clear, yellow urine in urinal. all surgical sites stable, CDI. R IJ
cordis w/ KVO. PIV intact. pt assisted back to bed by this RN. plan of care discussed w/ pt, pt in agreement. see worklist for complete nursing assessment, interventions, VS, and I&Os.
[2024-02-12] MEDS: CORDARONE 518 MG IV (21:30)
[2024-02-12] MEDS: CALCIUM CHLORIDE 10% SYRINGE 60 MG IV (22:01)
[2024-02-12] MEDS: KCL 40 MEQ PO (22:01)
[2024-02-12 22:08] LABS: Glucose - Point of Care 195 mg/dl (70-99)
[2024-02-13] VITALS (16 sets, daily range): BP systolic 84–133; BP diastolic 46–81; PULSE 68–70; O2SAT 97–99; BMI 29.8
--- NOTE | 2024-02-13 | PTCARENOTE ---
assessment remains unchanged. SR on tele-monitor, HR 60s-70s. POX 93-94% on RA.
--- NOTE | 2024-02-13 04:00 | PTCARENOTE ---
assessment remains unchanged. a fib w/ RVR on tele-monitor. POX 94-96% on RA. AM labs collected and sent.
--- NOTE | 2024-02-13 04:22 | W.PN.CT ---
Addendum entered and electronically signed by Scot George MD 02/13/24 06:35:
I saw and examined the patient.
The PA's note was reviewed and I agree with the note.
Comment:
POD#4 s/p CABG x 4/ELAA
Recurrent AF overnight, converted to NSR at 6:15AM. OOB to chair this AM. Looks well.
- Continue current medications
- Will transition to ASA/Eliquis on D/C; his IRENE is excluded
- Maintain cordis today
- F/U 2-view CXR
- Continue diuresis
- OOB/IS/ambulate
Original Note:
Today's Communication / Plan
-
-No major issues overnight. Hemodynamically and neurologically intact
-Has been in and out a-fib with RVR postop. Currently in a-fib @ 110 bpm. On Amiodarone gtt
-Will discuss oral anticoagulation, of note S/P Left atrial appendage clip. [id number] score is 4
-Currently on Plavix, will discuss D/C if need for DOAC/NOAC
-Will discuss cardioversion if remains in a-fib
-Noted to be on Lopressor 125 mg po BID, monitor BP
-Hyponatremia is improving, 123->130 -> 133, cont. Lasix, has 2+ LE edema
-F/u 2-view cxr
-Encourage use of IS
-OOB into chair/Ambulate
-Home likely tomorrow
Assessment / Plan
-
-s/p CABG x 4 (RUPAL to LAD, GSV to OM1, GSV to terminal LCx (L PLB), GSV to R PDA); ELAA w/ 35mm AtriClip; Drainage of B/L effusions on 02/09/[address] George, pod #4
-Post-PONCHO: Normal biventricular function w/ no RWMA, mild-to-mod AI, mild MR (improved from preop), IRENE no longer visible
-Multivessel CAD (including occluded RCA, 80% ostial/distal LM)
-Hx CAD S/P PCI with stents (2003, 2006)
-NSTEMI @ [facility] (peak trop 2164)
-[place]
-Brilinta washout (Last dose AM of 02/05/24)
-S/P IABP @ [facility]- dcd on 02/06/24 @ [facility]
-Acute hypoxic respiratory failure; prior to admission, now resolved
-Acute diastolic CHF
-LVEF 60-65% per TTE 10/07/[address] [facility]
-No significant valvular disease
-Hx CVA (2015)
-HTN
-Hyperlipidemia
-T2DM (A1C 7.2)
-Class 1 obesity (BMI 30)
-Esophageal Ca (completed chemo 12/2023, denies dysphagia)
-Moderate Protein Calorie Malnutrition
-Prostate Ca (under surveillance)
-Former tobacco use (1.5 pk/day x 25 yrs; quit 30 yrs ago)
-LE 2+ pitting edema (states post chemo therapy)
-Ambulatory dysfunction post chemotherapy/ R foot drop
-S/P Left teena cath
-S/P L TKA with revision
-S/P R rotator cuff repair
-S/P B/L cataracts
-S/p Loop recorder (2019)
- R foot drop
-Paroxysmal a-fib with RVR 150s on 02/07/24 with CP and ischemia on ECG- tx with sl Nitro x3 and drip, iv Lopressor, iv Mg - converted to nsr with resolution of CP. TEG profile drawn>platelets 12% inhibited.
-Low grade temp 100.5 on 02/06 with urinary incontinence (Cabezas from [facility] was dcd)- UA normal
-Anemia preop with postop acute blood loss anemia- s/p 2 pRBCs 02/08
-Pre and postop thrombocytopenia
-Acute postop hypovolemia with subsequent hypervolemia
-Acute postop atelectasis/Left pleural effusion
Discussed patient care with: Cardiology, Nursing, Respiratory Therapy, Pharmacy and Care Team
Subjective
Procedure
-s/p CABG x 4 (RUPAL to LAD, GSV to OM1, GSV to terminal LCx (L PLB), GSV to R PDA); ELAA w/ 35mm AtriClip; Drainage of B/L effusions on 02/09/[address] George
-
Date of Service: February 13, 2024
Pt c/o mild incisional pain, otherwise feels well
Objective Data
-
PT 16.7 Sec (11.4-14.6) H 02/09/24 13:32
INR 1.38 02/09/24 13:32
APTT 29.3 Sec (23.4-35.0) 02/09/24 13:32
Vital Signs
Vital Signs
Temp Pulse Resp BP Pulse Ox
98.6 F 102 16 133/57 99
02/13/24 00:00 02/13/24 01:00 02/13/24 00:00 02/13/24 00:00 02/13/24 01:18
CT Intake/Output/Weight
02/12/24 02/12/24 02/13/24
06:59 18:59 06:59
Intake Total 716.7 / 1404.7 1348.3 / 1508.4 160.1 / 1508.4
Output Total 1275 / 3815 2250 / 2700 450 / 2700
Balance -558.3 / -2410.3 -901.7 / -1191.6 -289.9 / -1191.6
SaO2: 99 (RA)
Physical Exam
-
General: Awake, Oriented and AOx3
Cardiovascular: Regular rate & rhythm and No Murmurs
Respiratory: Decreased Breath Sounds (at bases, otherwise clear)
Sternum: Stable
Incision: Clean, Dry, Intact and Dressing Intact
Extremities: Edema +2
Data Reviewed
-
Lab Results: Results Reviewed
Medications: Active Meds Reviewed
Chest X-Ray: Report Reviewed and Image Reviewed
ECG: Report Reviewed and Image Reviewed
[2024-02-13 04:56] LABS: Hemoglobin 8.7 g/dL (13.0-18.0); Mean Corp Hgb Conc. 32.2 g/dL (33.0-37.0); Mean Corpuscular Hgb 29.4 pg (27.0-31.0); Mean Corpuscular Volume 91.2 fL (80.0-94.0); Mean Platelet Volume 9.9 fL (7.4-10.4); Platelet Count 168 10^3/uL (130-400); Red Blood Cell Count 2.96 10^6/uL (4.70-6.10); Red Cell Dist. Width 14.9 % (11.5-14.5); White Blood Cell Count 8.6 10^3/uL (4.8-10.8)
[2024-02-13 04:58] LABS: Blood Urea Nitrogen 18 mg/dl (9-20); Calcium 8.1 mg/dl (8.4-10.2); Carbon Dioxide 25 mmol/L (22-30); Chloride 98 mmol/L (98-107); Estimated Creatinine Clearance 91 ml/min; Glucose 127 mg/dl (70-99); Magnesium 2.3 mg/dl (1.6-2.3); Potassium 3.9 mmol/L (3.5-5.1); Sodium 133 mmol/L (135-145); eGFR > 60.00
[2024-02-13] MEDS: TYLENOL 1000 MG PO ×2 (06:01→20:32)
--- NOTE | 2024-02-13 07:00 | PTCARENOTE ---
Bedside walking rounds report received. Patient seen on rounds oob in chair on room air. NSR with rates in the 80's. Amio gtt on per protocol at 0.5mg/min via pump via right IJ cordis. Denies pain, except chronic lower back pain. Improving
physically, but sill deconditioned reqiring moderate to max assist of 1 to standing position, similar to previous day CT surgical rounds: new orders received. Will give PO lasix today to continue diuresis. See flowrecord for remaining assessments
[2024-02-13] MEDS: NOVOLOG FLEXPEN-MODERATE RESISTANCE 1 UNITS SC ×2 (07:52→17:20)
[2024-02-13 07:53] LABS: Glucose - Point of Care 189 mg/dl (70-99)
[2024-02-13] MEDS: NIASPAN TIME RELEASE 500 MG PO ×2 (08:25→20:31)
[2024-02-13] MEDS: LOPRESSOR 125 MG PO ×2 (08:25→20:31)
[2024-02-13] MEDS: JARDIANCE 10 MG PO (08:26)
[2024-02-13] MEDS: VITAMIN C 1500 MG PO (08:26)
[2024-02-13] MEDS: MAGNESIUM OXIDE 500 MG PO ×2 (08:27→20:31)
[2024-02-13] MEDS: SENOKOT-S 1 TABLET PO ×2 (08:27→20:32)
[2024-02-13] MEDS: LOW STRENGTH ASPIRIN 81 MG PO (08:27)
[2024-02-13] MEDS: FLOMAX 0.400000000000000022 MG PO (08:27)
[2024-02-13] MEDS: PROTONIX 40 MG PO (08:27)
[2024-02-13] MEDS: LASIX 40 MG PO (08:27)
[2024-02-13] MEDS: NEURONTIN 100 MG PO ×3 (08:27→20:32)
[2024-02-13] MEDS: PACERONE 200 MG PO ×3 (08:27→20:32)
[2024-02-13] MEDS: JANUVIA 100 MG PO (08:28)
[2024-02-13] MEDS: AMARYL 4 MG PO (08:28)
[2024-02-13] MEDS: LIDOCAINE 4% PATCH 1 PATCH TOPICAL (08:28)
[2024-02-13] MEDS: GLUCOPHAGE 1000 MG PO ×2 (08:28→17:28)
--- NOTE | 2024-02-13 08:28 | W.PN.CD ---
Today's Communication / Plan
-
-Recurrent postoperative paroxysmal atrial fibrillation; primarily asymptomatic.
-Continue amiodarone drip and PO load.
-Continue metoprolol tartrate.
-Patient should be discharged home on Eliquis 5 mg BID.
Impression / Plan
-
Impression/Plan: 74 y/o male with HTN, HLD, NIDDM, treated esophageal CA and known CAD with prior PCI transferred from [facility] with NSTEMI after coronary angiography demonstrated surgical disease which led to flash pulmonary edema.
#CAD with NSTEMI s/p CABG x 4 (RUPAL to LAD, GSV to OM1, GSV to terminal LCx (L PLB), GSV to R PDA); ELAA w/ 35mm AtriClip; Drainage of B/L effusions on 02/09/[address] George
-Troponin I peaked at 2164 at [facility].
-Continue Plavix 75 mg daily (indication is CA; duration of DAPT 9-12 mo)
-Cardiac catheterization with 80% distal left main, ostial LAD 60%, ostial and proximal LCx 50%, RCA 100% with L to R collaterals.
-Continue current medical management as directed by CT surgery team.
#Paroxysmal atrial fibrillation:
-Recurrent postoperative paroxysmal atrial fibrillation; primarily asymptomatic.
-New diagnosis.
-Occurred 02/08/24, again last night. Symptomatic and lasting minutes.
-Continue amiodarone drip and PO load.
-Continue metoprolol tartrate.
-Patient should be discharged home on Eliquis 5 mg BID.
#Esophageal cancer
-Did not tolerate pembrolizumab.
-Completed treatment last month at [facility].
#Prior prostate cancer
-Reports esophageal cancer treatment also treated his prostate cancer.
#NIDDM
-Chronic, stable.
-HbA1c = pending.
#Dyslipidemia
-Chronic, stable.
-update fasting lipid panel, goal LDL <55
#CVA, 2016
Subjective/Interval History:
Patient with recurrent postoperative paroxysmal atrial fibrillation; primarily asymptomatic.
Director Utilization Management: Dr. Colunga
DATA:
TTE, 02/06/2024:
CONCLUSIONS
Normal left ventricular size, wall thickness and systolic function.
No regional wall motion abnormalities are seen.
LV ejection fraction is 55-60% by visual assessment.
Normal right ventricular size and function.
Mild aortic regurgitation.
Compared to prior from October 07, 2022, aortic regurgitation is mild from
trace.
Carotid Duplex US, 02/06/2024:
IMPRESSION: Minimal carotid bulb plaque on each side, measurements suggestive of less than 50% stenosis on each side as per modified Society of Radiologists in Ultrasound consensus criteria (IAC carotid criteria white paper, 2020).
Physical Exam
Vital Signs/Labs
Vital Signs
Temp Pulse Resp BP Pulse Ox
98.4 F 86 18 106/68 98
02/13/24 08:22 02/13/24 08:22 02/13/24 08:22 02/13/24 08:22 02/13/24 08:22
02/12/24 02/13/24 02/14/24
06:59 06:59 06:59
Actual Weight 89.3 kg 88.9 kg
02/13/24 04:20
02/13/24 04:20
PT 16.7 Sec (11.4-14.6) H 02/09/24 13:32
INR 1.38 02/09/24 13:32
APTT 29.3 Sec (23.4-35.0) 02/09/24 13:32
Magnesium 2.3 mg/dl (1.6-2.3) 02/13/24 04:20
02/06/24
03:55
Vde-T-Daapotsagzo Pept 1820
Physical Exam
Constitutional: No acute distress and Comfortable
EENT: Anicteric and Moist mucous membranes
Cardiovascular: Rhythm & rate is regular, Systolic murmur absent, Pedal edema present (1+) and S1S2 is normal
Respiratory: Respiratory effort normal and Lungs clear to auscul.
GI: Soft
Neuro/Psych: AO x 3
Other: Skin (Warm, dry, intact)
Data Reviewed
-
Date of Service: February 13, 2024
EKG: Tracing Personally Visualized and interpreted (Telemetry: PAF)
Medical Tests (PFT, Pathology etc): Discussed with Nurse and Discussed with Patient
Labs: Labs Reviewed by me
Critical Care Time (in minutes): 34
[2024-02-13] MEDS: BACTROBAN 2% OINTMENT 1 APPLIC NASAL (08:29)
--- NOTE | 2024-02-13 09:15 | PN.DE.MGMTRT ---
Insulin Management
- -
02/13/2024: Diabetes Management Follow up:
Patient transferred from [facility] 02/04 s/p chest pain, cardiac cath. PMH CAD, esophageal CA, prostate CA, HTN, CVA, HCL, T2DM, [place], pulmonary edema. Prior to admission was taking glimepiride 2 mg daily, metformin 1000 BID and Janumet 100/1000
PM. A1C 7.2, cr .7, eGFR >60.
Patient awake, alert, sitting up in chair, offers no complaints, at bedside both able to discuss diabetes management.
He is POD #4, s/p CABG x 4. Pt was transitioned off insulin drip to his outpatient oral regimen with the addition of Jardiance yesterday.
Glucose up to 241 pre dinner, 195 @ hs. Glimepiride has been increased to 4 mg daily. Fasting glucose 127 venous.
Meds at D/C: Glimepiride 4 mg daily, Metformin 1000 BID and Januvia 100 mg daily and Jardiance 10 mg daily
Discussed diabetes plan of care and medication regimen with pt and wifein detail. concerned medication adjusted but not by primary doctor. Explained importance of glucose control s/p surgery and that increase in glimepiride may be temporary.
Both verbalize understanding and agreement. Patient to test glucose BID in pattern provided and report to primary doctor.
Glucose monitor has been provided and demonstrated.
Diabetes History
- -
Type of Diabetes: 2
Pre-Admission Diabetes Regimen
02/12/24 02/12/24 02/13/24
18:41 19:23 04:20
Creatinine 0.8 0.9 0.8
Lab Results
Hemoglobin A1c 7.2 % (4.0-5.6) H 02/05/24 18:39
Insulin Pump Settings
IP Diabetes Regimen
02/12/24 02/12/24 02/12/24
12:33 17:01 18:41
Glucose 462 H*
POC Glucose 248 H 241 H
02/12/24 02/12/24 02/12/24
19:15 19:23 22:07
Glucose 240 H
POC Glucose 258 H 195 H
02/13/24 02/13/24
04:20 07:51
Glucose 127 H
POC Glucose 189 H
Patient Education
[2024-02-13] MEDS: PLAVIX 75 MG PO (09:54)
--- NOTE | 2024-02-13 11:19 | CM ---
Chart reviewed. Patient is independent of ADLS, lives with his in a [address], [address] [facility], stopped using his RW and SPC 1 month prior to surgery. PT evaluation recommending SNF. Patient would like to go to [facility]. Referral placed and
accepted. Patient will need prior authorization with [employer]. Tentative discharge date is 02/13. CM to get prior authorization. Plan is for the patient to go to SNF when medically stable. CM to follow
--- NOTE | 2024-02-13 11:52 | PN.DE ---
Diabetes Education
- -
02/13/2024: Diabetes Education consult:
74 year old male admitted from [facility] 02/04 s/p chest pain, cardiac cath. PMH CAD, esophageal CA, prostate CA, HTN, CVA, HCL, T2DM, [place], pulmonary edema. Prior to admission was taking glimepiride 2 mg daily, metformin 1000 BID and Janumet
100/1000 PM. A1C 7.2%, Cr 0.7, eGFR >60.
Met with pt and - Janeth at bedside for glucose monitor instructions. Pt states he has been monitoring and is familiar with glucose monitoring.
Discussed current A1C and average blood sugar of 150-200, diabetes related short and chcf complications, life style modification and self management at home. Pt's states that his A1C has always been ~high 6. Provided with Contour Next EZ
glucometer, instructions with good return demonstration, result 230 mg/dl before lunch.
Discussed testing pattern and expected results and information marked in the take home booklet. Discussed and reviewed importance of reducing CHO intake, being active and checking BS to assess food/medication effect on his BS and encourage physical
activity.
Discussed OP DSME classes, Janeth states pt will not need OP diabetes education because she attended those same classes and knows the information.
Will need RX for test strips and lancets for the Contour Next EZ, testing 2x/day at discharge.
Discussed plan of care including medications for management at home with Pt and . Updates given to Pt's nurse.
[2024-02-13] MEDS: NOVOLOG FLEXPEN-MODERATE RESISTANCE 3 UNITS SC (11:53)
[2024-02-13 11:57] LABS: Glucose - Point of Care 228 mg/dl (70-99)
--- NOTE | 2024-02-13 12:00 | PTCARENOTE ---
No acute changes: vitals stable. NSR.
[2024-02-13] MEDS: MILK OF MAGNESIA 30 ML PO (13:51)
[2024-02-13] MEDS: TYLENOL PO (14:42)
[2024-02-13] MEDS: NSS 500 IV (15:31)
[2024-02-13 17:24] LABS: Glucose - Point of Care 172 mg/dl (70-99)
[2024-02-13] MEDS: ZETIA 10 MG PO (17:28)
[2024-02-13] MEDS: LIPITOR 40 MG PO (17:28)
--- NOTE | 2024-02-13 18:00 | PTCARENOTE ---
No acute changes. NSR.
--- NOTE | 2024-02-13 20:00 | PTCARENOTE ---
assumed care of pt from previous RN. pt A&Ox4, resting in chair at time of assessment. SR on tele-monitor, HR 60s-70s. POX 97% on RA. abd s/n, round, +BS. pt voiding clear, yellow urine in urinal. all surgical and cath sites stable, CDI. R IJ cordis
w/ KVO. PIV intact. plan of care discussed w/ pt, pt in agreement. see worklist for complete nursing assessment, interventions, VS, and I&Os.
[2024-02-13 20:30] LABS: Glucose - Point of Care 200 mg/dl (70-99)
--- NOTE | 2024-02-14 | PTCARENOTE ---
assessment remains unchanged. VSS. SR on tele-monitor. HR 60s. POX 98% on RA.
[2024-02-14 00:14] VITALS: BP 102/54
--- NOTE | 2024-02-14 04:00 | PTCARENOTE ---
VSS. SR on tele-monitor. HR 60s. POX 98% on RA. AM labs collected and sent.
[2024-02-14 04:01] VITALS: BP 121/64
[2024-02-14 04:36] LABS: Blood Urea Nitrogen 19 mg/dl (9-20); Calcium 7.7 mg/dl (8.4-10.2); Carbon Dioxide 30 mmol/L (22-30); Chloride 97 mmol/L (98-107); Estimated Creatinine Clearance 81 ml/min; Glucose 108 mg/dl (70-99); Magnesium 2.4 mg/dl (1.6-2.3); Potassium 3.4 mmol/L (3.5-5.1); Sodium 133 mmol/L (135-145); eGFR > 60.00
--- NOTE | 2024-02-14 05:47 | W.PN.CT ---
Today's Communication / Plan
-
-pod #5
-no issues overnight, remains in NSR since 02/12 6am- on Amio drip @ 0.5 overnight
-looks and feels better overall
-plans for d/c to [facility] rehab today
-d/c Cordis
-currently on ASA and Plavix. Per Dr. George, will transition to ASA/Eliquis on D/C
Assessment / Plan
-
-s/p CABG x 4 (RUPAL to LAD, GSV to OM1, GSV to terminal LCx (L PLB), GSV to R PDA); ELAA w/ 35mm AtriClip; Drainage of B/L effusions on 02/09/[address] George, pod #5
-Post-PONCHO: Normal biventricular function w/ no RWMA, mild-to-mod AI, mild MR (improved from preop), IRENE no longer visible
-Multivessel CAD (including occluded RCA, 80% ostial/distal LM)
-Hx CAD S/P PCI with stents (2003, 2006)
-NSTEMI @ [facility] (peak trop 2164)
-[place]
-Brilinta washout (Last dose AM of 02/05/24)
-S/P IABP @ [facility]- dcd on 02/06/24 @ [facility]
-Acute hypoxic respiratory failure; prior to admission, now resolved
-Acute diastolic CHF
-LVEF 60-65% per TTE 10/07/22 @ [facility]
-No significant valvular disease
-Hx CVA (2015)
-HTN
-Hyperlipidemia
-T2DM (A1C 7.2)
-Class 1 obesity (BMI 30)
-Esophageal Ca (completed chemo 12/2023, denies dysphagia)
-Moderate Protein Calorie Malnutrition
-Prostate Ca (under surveillance)
-Former tobacco use (1.5 pk/day x 25 yrs; quit 30 yrs ago)
-LE 2+ pitting edema (states post chemo therapy)
-Ambulatory dysfunction post chemotherapy/ R foot drop
-S/P Left teena cath
-S/P L TKA with revision
-S/P R rotator cuff repair
-S/P B/L cataracts
-S/p Loop recorder (2019)
- R foot drop
-Paroxysmal a-fib with RVR 150s on 02/07/24 with CP and ischemia on ECG- tx with sl Nitro x3 and drip, iv Lopressor, iv Mg - converted to nsr with resolution of CP. TEG profile drawn>platelets 12% inhibited.
-Low grade temp 100.5 on 02/06 with urinary incontinence (Cabezas from [facility] was dcd)- UA normal
-Anemia preop with postop acute blood loss anemia- s/p 2 pRBCs 02/08
-Pre and postop thrombocytopenia
-Acute postop hypovolemia with subsequent hypervolemia
-Acute postop atelectasis/Left pleural effusion
-Acute postop hyponatremia/hypokalemia
Discussed patient care with: Nursing and Care Team
Subjective
Procedure
-s/p CABG x 4 (RUPAL to LAD, GSV to OM1, GSV to terminal LCx (L PLB), GSV to R PDA); ELAA w/ 35mm AtriClip; Drainage of B/L effusions on 02/09/[address] George
-
Date of Service: February 14, 2024
Objective Data
-
Lab Results
02/13/24 04:20
02/14/24 04:05
PT 16.7 Sec (11.4-14.6) H 02/09/24 13:32
INR 1.38 02/09/24 13:32
APTT 29.3 Sec (23.4-35.0) 02/09/24 13:32
Vital Signs
Vital Signs
Temp Pulse Resp BP Pulse Ox
98.6 F 68 18 121/64 94
02/14/24 04:00 02/14/24 04:01 02/14/24 04:00 02/14/24 04:01 02/14/24 04:00
CT Intake/Output/Weight
02/13/24 02/13/24 02/14/24
06:59 18:59 06:59
Intake Total 266.9 / 1615.2 1445.3 / 1685.6 240.3 / 1685.6
Output Total 1350 / 3600 2049
Balance -1083.1 / -1984.8 -604.7 / -364.4 240.3 / -364.4
SaO2: 94
Physical Exam
-
General: Awake and AOx3
Cardiovascular: Regular rate & rhythm, No Murmurs and No Rub
Respiratory: Decreased Breath Sounds
Sternum: Stable
Incision: Clean, Dry and Intact
Extremities: Other (trace edema b/l)
Data Reviewed
-
Lab Results: Results Reviewed
Medications: Active Meds Reviewed
Chest X-Ray: Report Reviewed and Image Reviewed
ECG: Report Reviewed and Image Reviewed
[2024-02-14] MEDS: TYLENOL 1000 MG PO (05:53)
[2024-02-14] MEDS: KCL 40 MEQ PO (05:53)
[2024-02-14 07:39] VITALS: BP 104/53
[2024-02-14 07:46] LABS: Glucose - Point of Care 147 mg/dl (70-99)
--- NOTE | 2024-02-14 07:52 | PN.DE.MGMTRT ---
Insulin Management
- -
02/14/2024: Diabetes Management Follow up:
Patient transferred from [facility] 02/04 s/p chest pain, cardiac cath. PMH CAD, esophageal CA, prostate CA, HTN, CVA, HCL, T2DM, AL, pulmonary edema. Prior to admission was taking glimepiride 2 mg daily, metformin 1000 BID and Janumet 100/1000
PM. A1C 7.2, cr .7, eGFR >60.
Patient awake, alert, sitting up in chair, offers no complaints, at bedside both able to discuss diabetes management.
He is POD #5, s/p CABG x 4. Pt was transitioned off insulin drip to his outpatient oral regimen with the addition of Jardiance yesterday.
Glucose up to 228 pre lunch, 200 @ hs. Glimepiride has been increased to 4 mg daily. Fasting glucose 108 venous.
Discussed diabetes plan of care and medication regimen with patient. Explained importance of glucose control s/p surgery and that increase in glimepiride may be temporary. Patient verbalized understanding and agreement. Patient to test glucose
BID in pattern provided and report to primary doctor.
Glucose monitor has been provided and demonstrated.
[facility] Meds at discharge: Glimepiride 4 mg daily, Metformin 1000 BID and Januvia 100 mg daily and Jardiance 10 mg daily
Diabetes History
- -
Type of Diabetes: 2
Pre-Admission Diabetes Regimen
02/14/24
04:05
Creatinine 0.8
Lab Results
Hemoglobin A1c 7.2 % (4.0-5.6) H 02/05/24 18:39
Insulin Pump Settings
IP Diabetes Regimen
02/13/24 02/13/24 02/13/24
07:51 11:49 17:18
Glucose
POC Glucose 189 H 228 H 172 H
02/13/24 02/14/24 02/14/24
20:28 04:05 07:44
Glucose 108 H
POC Glucose 200 H 147 H
Meal type: Lunch
Meal type: Breakfast
Amount consumed: 100%
Amount consumed: 100%
Patient Education
--- NOTE | 2024-02-14 08:00 | PTCARENOTE ---
Assumed care of patient from manufacturing supervisor 2nd shift RN. MICHI x 3. Sitting up in the chair. Denies pain. SR on monitor. Room air . Abdomen soft and round with positive bowel sounds. Voiding eboni urine. Pulses palpable. plus on general anasarca noted.
Plan for day discussed.
[2024-02-14] MEDS: JARDIANCE 10 MG PO (08:23)
[2024-02-14] MEDS: GLUCOPHAGE 1000 MG PO (08:23)
[2024-02-14] MEDS: LOPRESSOR 125 MG PO (08:23)
[2024-02-14] MEDS: LOW STRENGTH ASPIRIN 81 MG PO (08:23)
[2024-02-14] MEDS: LASIX 40 MG PO (08:23)
[2024-02-14] MEDS: NIASPAN TIME RELEASE 500 MG PO (08:23)
[2024-02-14] MEDS: PLAVIX 75 MG PO (08:23)
[2024-02-14] MEDS: PROTONIX 40 MG PO (08:23)
[2024-02-14] MEDS: VITAMIN C 1500 MG PO (08:24)
[2024-02-14] MEDS: PACERONE 200 MG PO (08:24)
[2024-02-14] MEDS: JANUVIA 100 MG PO (08:24)
[2024-02-14] MEDS: NEURONTIN 100 MG PO (08:24)
[2024-02-14] MEDS: FLOMAX 0.400000000000000022 MG PO (08:24)
[2024-02-14] MEDS: SENOKOT-S 1 TABLET PO (08:24)
[2024-02-14] MEDS: MAGNESIUM OXIDE 500 MG PO (08:24)
--- NOTE | 2024-02-14 08:24 | W.PN.CD ---
Today's Communication / Plan
-
-No major events overnight; remains in sinus rhythm.
-Continue PO amiodarone and metoprolol tartrate.
-Discharge on Eliquis 5 mg BID and aspirin 81 mg daily.
-Outpatient follow-up with primary [facility].
Impression / Plan
-
Impression/Plan: 74 y/o male with HTN, HLD, NIDDM, treated esophageal CA and known CAD with prior PCI transferred from [facility] with NSTEMI after coronary angiography demonstrated surgical disease which led to flash pulmonary edema.
#CAD with NSTEMI s/p CABG x 4 (RUPAL to LAD, GSV to OM1, GSV to terminal LCx (L PLB), GSV to R PDA); ELAA w/ 35mm AtriClip; Drainage of B/L effusions on 02/09/[address] George
-Troponin I peaked at 2164 at [facility].
-Patient was on Plavix 75 mg daily (indication is ME; duration of DAPT 9-12 mo), but will be changed to aspirin on discharge due to new onset PAF.
-Cardiac catheterization with 80% distal left main, ostial LAD 60%, ostial and proximal LCx 50%, RCA 100% with L to R collaterals.
-Continue current medical management as directed by CT surgery team.
# New postoperative paroxysmal atrial fibrillation:
-No major events overnight; remains in sinus rhythm.
-Continue PO amiodarone and metoprolol tartrate.
-Discharge on Eliquis 5 mg BID and aspirin 81 mg daily.
#Esophageal cancer
-Did not tolerate pembrolizumab.
-Completed treatment last month at [facility].
#Prior prostate cancer
-Reports esophageal cancer treatment also treated his prostate cancer.
#NIDDM
-Chronic, stable.
-HbA1c = pending.
#Dyslipidemia
-Continue atorvastatin
#CVA, 2015
Subjective/Interval History:
No major events overnight; remains in sinus rhythm. No cardiac complaints this a.m.
[facility]: Dr. Colunga
DATA:
TTE, 02/06/2024:
CONCLUSIONS
Normal left ventricular size, wall thickness and systolic function.
No regional wall motion abnormalities are seen.
LV ejection fraction is 55-60% by visual assessment.
Normal right ventricular size and function.
Mild aortic regurgitation.
Compared to prior from October 07, 2022, aortic regurgitation is mild from
trace.
Carotid Duplex US, 02/06/2024:
IMPRESSION: Minimal carotid bulb plaque on each side, measurements suggestive of less than 50% stenosis on each side as per modified Society of Radiologists in Ultrasound consensus criteria (IAC carotid criteria white paper, 2020).
Physical Exam
Vital Signs/Labs
Vital Signs
Temp Pulse Resp BP Pulse Ox
98.6 F 68 18 121/64 97
02/14/24 04:00 02/14/24 06:30 02/14/24 04:00 02/14/24 04:01 02/14/24 05:30
02/13/24 02/14/24 02/15/24
06:59 06:59 06:59
Actual Weight 88.9 kg 89.4 kg
02/13/24 04:20
02/14/24 04:05
PT 16.7 Sec (11.4-14.6) H 02/09/24 13:32
INR 1.38 02/09/24 13:32
APTT 29.3 Sec (23.4-35.0) 02/09/24 13:32
Magnesium 2.4 mg/dl (1.6-2.3) H 02/14/24 04:05
02/06/24
03:55
Ims-T-[id number] Pept 1820
Physical Exam
Constitutional: No acute distress and Comfortable
EENT: Anicteric
Cardiovascular: Rhythm & rate is regular, Systolic murmur absent, Pedal edema present (Trace) and S1S2 is normal
Respiratory: Respiratory effort normal and Lungs clear to auscul.
GI: Soft
Neuro/Psych: AO x 3
Other: Skin (Warm, dry, intact)
Data Reviewed
-
Date of Service: February 14, 2024
EKG: Tracing Personally Visualized and interpreted (Telemetry: Sinus rhythm)
Medical Tests (PFT, Pathology etc): Discussed with Nurse and Discussed with Patient
Labs: Labs Reviewed by me
Critical Care Time (in minutes): 31
[2024-02-14] MEDS: AMARYL 4 MG PO (08:25)
[2024-02-14] MEDS: LIDOCAINE 4% PATCH TOPICAL (08:40)
[2024-02-14] MEDS: NOVOLOG FLEXPEN-MODERATE RESISTANCE SC (08:40)
[2024-02-14 09:09] VITALS: BP 93/64
[2024-02-14 09:25] VITALS: BP 115/53
[2024-02-14] MEDS: LOPRESSOR 25 MG PO (09:26)
[2024-02-14] MEDS: KCL 20 MEQ PO (09:26)
[2024-02-14 10:18] VITALS: BP 105/60; BP 94/46; BP 95/48; PULSE 67; O2SAT 98
--- NOTE | 2024-02-14 10:27 | W.DCSUMMARY ---
Discharge Summary
Discharge Data
Date of Admission: 02/05/24
Date of Discharge: 02/14/24
Total time spent discharging patient (in min): 45
-
Pending Results: No
Hospital Course
Primary care physician:
Oliver Garcia
Outpatient breakdown man:
Zane
Inpatient consultants:
CBC, anesthesia, diabetes managment SITE MEDICAL DIRECTOR, project construction manager
Procedures:
1. Coronary artery bypass graft x 4 (RUPAL to LAD, GSV to OM1, GSV to terminal LCx (L PLB), GSV to R PDA)
Primary Diagnosis:
1. Multivessel coronary artery disease including significant left main disease.
Secondary Diagnoses:
1. History of NSTEMI with stents in 2003 in 2006
2. Esophageal cancer on chemo therapy
3. Hypertension
4. Type 2 diabetes
5. Prostate cancer
6. Ocular CVA
7. Postoperative fluid overload
HPI: 74-year-old male admitted on 02/02 to [facility] with chest pain and shortness of breath. Ruled in for non-STEMI was started on heparin and nitroglycerin. Patient was taken to the [facility] on 02/04 in which left main disease was found and a
left femoral intra-aortic balloon pump was placed and patient was transferred to [facility]. He was started on Plavix on 02/04 therefore surgery was delayed until 02/08.
Hospital course: Patient was transferred to [facility] on 02/04 with a left femoral intra-aortic balloon pump. Heparin and nitroglycerin drip were continued. On 02/05 intra-aortic balloon pump was discontinued left [place] and venous sheath
were discontinued. Heparin drip and nitroglycerin were continued. On 02/06 patient's Cabezas was taken out nitroglycerin was weaned off. Physical therapy and Occupational Therapy were consulted for lower extremity weakness that the patient stated it
is from chemotherapy. Patient developed atrial flutter and subsequently redeveloped chest pain. A teg was performed in case patient had to be taken to surgery emergently. On 02/07 patient had a small temperature of 100.5 Fahrenheit left them was
tender however there was no pseudoaneurysm on ultrasound. Patient was started on amiodarone 400 mg twice daily for paroxysmal atrial fibrillation. On 02/08 patient was taken to the CV OR for CABG with Dr. George. He returned to the CVICU on
Levophed, Precedex, and insulin. Precedex was weaned off and patient was extubated by 6 PM. On 02/09 postoperative day #1 patient was diuresed with 20 mg of IV Lasix and started on beta-blockers. On 02/10 postoperative day #2 patient was restarted
on oral diabetes medications and insulin drip was weaned off. Patient was diuresed with 40 mg of IV Lasix and Lopressor was increased up to 125 mg until heart rate was better controlled. Due to low chest tube output chest tubes were removed.
Patient developed A-fib with RVR patient was started on amnio drip and bolus. On 02/11 postoperative day #3 patient converted into sinus rhythm after 12 hours of A-fib but then redeveloped A-fib later in the afternoon and an additional amnio bolus
was administered. On 02/12 postoperative day #4 patient again converted back to sinus rhythm Amio drip was continued. Oral diuresis was continued. On 02/13 postoperative day #5 patient was discontinued on Plavix and started on Eliquis. Metoprolol
was increased to 150 mg twice daily for heart rate and atrial fibrillation control. He was deemed stable for discharge to rehab.
Home medication changes:
see below
Discharge Plan
-
Patient Disposition: Skilled Nursing/SNF
Discharge Diagnosis/Procedures: cad/cabg
Condition: Fair
Diet: Low Fat, Low Sodium and Diabetic, Carb Controlled
Activity: As tolerated
Driving Restrictions: Not until seen by your Dr
Bathing Restrictions: OK to Shower
Other Services: Cardiac Rehab
Activity Restrictions/Additional Instructions:
Please call to make appointments for Cardiac Rehab (When PT/OT/SNF/ Home nursing are no longer needed):
ACTIVITY:
-No strenuous activity: no heavy lifting, pushing, pulling anything over 15 pounds for one month
-continue to use stairs as tolerated
DRIVING RESTRICTIONS:
-No driving for one month or until approved by your surgeon
WOUND CARE:
-Shower daily. Use soap & water.
-No lotions, creams or powders on incision area.
DIET:
-continue a low fat/low cholesterol diet.
-IF you are diabetic, continue carb controlled diet.
CARDIAC REHAB:
-Please make appointment to start in 5-6 weeks with your local hospital program. (See Cardiac Rehabilitation Discharge Booklet).
SPECIALTY INSTRUCTIONS:
-Weigh yourself daily. Call your physician for any weight gain/loss of 3 lbs overnight or 5 lbs in one week.
-REPORT any clicking noise or uneven appearance of your sternum to your surgeon immediately.
-If you smoke, you are instructed to quit. The [place] smoking hotline phone number is [phone] 1) [facility]: [phone] (~18 min away)
2) [facility]: [phone] (~ 18 min away)
Referrals:
[facility] [Outside] (now called- [facility])
Shawn Degroot MD [Active] - 04/02/24 12:40 pm
Oliver Garcia MD [Family Provider] -
Scot George MD [Active] - 03/12/24 2:30 pm
Additional Discharge Medication Instructions: Stop taking your plavix, glimepiride 2mg because your dose was increased to 4mg, metoprolol succinate 200mg, tramadol
Prescriptions:
New
(DME) Contour Next Test Strips Strip
Qty: 60 0RF
Rx Instructions:
Pt Testing 2 times a day
(DME) lancets [Microlet Lancet] Misc
Qty: 60 0RF
Rx Instructions:
Pt testing 2 times a day
cyclobenzaprine 10 mg Tablet
5 mg PO Q8HPRN PRN (Reason: muscle spasm) Qty: 0 0RF
tamsulosin 0.4 mg Capsule
0.4 mg PO DAILY Qty: 0 0RF
Eliquis 5 mg Tablet
5 mg PO BID Qty: 0 0RF
amiodarone [Pacerone] 200 mg Tablet
200 mg PO BID 14 Days Qty: 28 0RF
metoprolol tartrate 100 mg tablet
150 mg PO Q12 Qty: 0 0RF
furosemide 40 mg Tablet
40 mg PO DAILY Qty: 60 0RF
acetaminophen 325 mg Tablet
650 mg PO Q4HPRN PRN (Reason: mild pain,headache,temp >101F ) Qty: 0 0RF
sennosides-docusate sodium [Stool Softener-Stimulant Laxat] 8.6-50 mg Tablet
1 tab PO Q12 Qty: 0 0RF
potassium chloride 20 mEq Tablet,Er Particles/Crystals
20 meq PO DAILY Qty: 0 0RF
magnesium oxide 500 mg magnesium Tablet
500 mg PO BID 30 Days Qty: 0 0RF
gabapentin 100 mg Capsule
100 mg PO TID PRN (Reason: post-op pain) Qty: 0 0RF
Jardiance 10 mg Tablet
10 mg PO DAILY Qty: 0 0RF
glimepiride 2 mg Tablet
4 mg PO DAILY Qty: 0 0RF
melatonin 5 mg Tablet
5 mg PO HSPRN PRN (Reason: insomnia) Qty: 0 0RF
amiodarone 200 mg tablet
200 mg PO DAILY Qty: 30 0RF
Rx Instructions:
start 14 days after discharge
Continued
atorvastatin [Lipitor] 40 mg Tablet
40 mg PO QPM
citalopram [Celexa] 10 mg Tablet
10 mg PO DAILY
prochlorperazine maleate [Compazine] 10 mg Tablet
10 mg PO Q6H PRN (Reason: nausea)
pantoprazole [Protonix] 40 mg Tablet,Delayed Release (Dr/Ec)
40 mg PO DAILY
metformin 1,000 mg Tablet
1,000 mg PO BID
niacin 500 mg Tablet
500 mg PO BID
ascorbic acid (vitamin C) 1,500 mg Tablet
1 tab PO DAILY
aspirin 81 mg Tablet
81 mg PO DAILY
ezetimibe [Zetia] 10 mg Tablet
10 mg QPM
Janumet XR 100-1,000 mg Tablet, Er Multiphase 24 Hr
1 tab PO QPM
Held
madpm-[id number]-fish oil 1,000-1,400 mg Capsule,Delayed Release(Dr/Ec)
1 cap PO BID
Hold Instructions: Resume on 03/16/24.
Discontinued
metoprolol succinate 200 mg Tablet Extended Release 24 Hr
200 mg PO DAILY
clopidogrel [Plavix] 75 mg Tablet
75 mg 1XD
tramadol 50 mg Tablet
50 mg PO Q6H PRN (Reason: pain)
glimepiride 2 mg Tablet
2 mg PO DAILY
Theragran
1 tab PO DAILY
Discharge Orders:
Discharge Patient (As Directed); Ordered 02/14/24
Ordered By: Cary Mckinney
Care Plan Goals
Care Plan Goals:
Problem: Readiness for enhanced knowledge related to diagnosis and treatment plan
Goal: Understand your diagnosis and treatment plan needs, including medications if applicable.
Instructions: Know your diagnosis, underlying causes and treatment plan options, including medications if applicable. Consult with your health care team to learn about your diagnosis and treatment plan, including medications if applicable.
Discharge Date and Time
Print Language: CHADIAN
--- NOTE | 2024-02-14 10:47 | PTCARENOTE ---
Ambulated to bathroom with rolling walker. Pt able to produce large formed bowel movement. however, with this activity he went into afib 130-140. Once settled back in bed. converted back to nsr 70's. Will monitor.
--- NOTE | 2024-02-14 11:35 | PTCARENOTE ---
Discharge order obtained. PIV removed along with RT IJ cordis. Hemostasis achieved with out issue at both sites. Sternal Aquacel removed at this time. Incision scabbed and well approximated. Report called to Francisca. Awaiting picked edge sewing machine operator at 1200.
VSS
--- NOTE | 2024-02-14 15:18 | CM ---
pt transfered to [facility]-[phone]- cook pickled meat by acute care van- pt called in payment.
== END 2024-02-14 12:00 | DRG 235 ==
LOC: CVICU 16:53
PROVIDERS: Anesthesiology; Clinical Nurse Specialist Acute Care; Nurse Practitioner; Physician Assistant Medical; Physician Assistant Surgical; ADMITTING PHYSICIAN Thoracic Surgery (Cardiothoracic Vascular Surgery); ATTENDING PHYSICIAN Thoracic Surgery (Cardiothoracic Vascular Surgery); CONSULT PHYSICIAN Internal Medicine Cardiovascular Disease; FAMILY PHYSICIAN Internal Medicine; OTHER PHYSICIAN Internal Medicine Pulmonary Disease
PROC: B24BZZ4 Ultrasonography of Heart with Aorta, Transesophageal (ICD-10-PCS; 2024-02-09)
PROC: 02100ZC Bypass Coronary Artery, One Artery from Thoracic Artery, Open Approach (ICD-10-PCS; 2024-02-09)
PROC: 021209W Bypass Coronary Artery, Three Arteries from Aorta with Autologous Venous Tissue, Open Approach (ICD-10-PCS; 2024-02-09)
PROC: 30233N1 Transfusion of Nonautologous Red Blood Cells into Peripheral Vein, Percutaneous Approach (ICD-10-PCS; 2024-02-09)
PROC: 5A1221Z Performance of Cardiac Output, Continuous (ICD-10-PCS; 2024-02-09)
PROC: 02L70CK Occlusion of Left Atrial Appendage with Extraluminal Device, Open Approach (ICD-10-PCS; 2024-02-09)
DX: I21.4 Non-ST elevation (NSTEMI) myocardial infarction (principal); I50.31 Acute diastolic (congestive) heart failure; I48.92 Unspecified atrial flutter; E44.0 Moderate protein-calorie malnutrition; E87.1 Hypo-osmolality and hyponatremia; D62 Acute posthemorrhagic anemia; J98.11 Atelectasis; J90 Pleural effusion, not elsewhere classified; I25.10 Atherosclerotic heart disease of native coronary artery without angina pectoris; E78.00 Pure hypercholesterolemia, unspecified; E11.9 Type 2 diabetes mellitus without complications; I48.0 Paroxysmal atrial fibrillation; I11.0 Hypertensive heart disease with heart failure; E66.9 Obesity, unspecified; D69.59 Other secondary thrombocytopenia; E87.6 Hypokalemia; R09.02 Hypoxemia; I25.2 Old myocardial infarction; Z68.30 Body mass index [BMI] 30.0-30.9, adult; Z79.02 Long term (current) use of antithrombotics/antiplatelets; Z79.4 Long term (current) use of insulin; Z79.82 Long term (current) use of aspirin; Z79.899 Other long term (current) drug therapy; Z85.01 Personal history of malignant neoplasm of esophagus; Z85.46 Personal history of malignant neoplasm of prostate; Z86.73 Personal history of transient ischemic attack (TIA), and cerebral infarction without residual deficits; Z87.891 Personal history of nicotine dependence; Z95.5 Presence of coronary angioplasty implant and graft
CPT/HCPCS: 36600; 71045; 71046; 71250; 80048; 80053; 81003; 81015; 82330; 82565; 82805; 82810; 82947; 82962; 83036; 83735; 83880; 84132; 84302; 84520; 85014; 85018; 85025; 85027; 85049; 85347; 85384; 85576; 85610; 85730; 86850; 86900; 86901; 86920; 93005; 93306; 93312; 93320; 93325; 93880; 93926; 93970; 94002; 94010; 97110; 97116; 97163; 97167; 97530; 97535; P9016; P9045

== ENCOUNTER 2024-04-23 13:00 | Outpatient (RCR) | payer OTHER, SELFPAY ==
[2024-04-23 14:00] LABS: Glucose - Point of Care 219 mg/dl (70-99)
[2024-04-23 14:30] LABS: Glucose - Point of Care 182 mg/dl (70-99)
== END 2024-04-23 23:59 | disposition home or self-care (01) ==
LOC: CRHB 13:00
PROVIDERS: ATTENDING PHYSICIAN Internal Medicine Interventional Cardiology; FAMILY PHYSICIAN Internal Medicine
DX: Z95.1 Presence of aortocoronary bypass graft (principal)
CPT/HCPCS: 82962; G0422; G0423

== ENCOUNTER 2024-05-22 11:10 | Outpatient (RCR) | payer OTHER, SELFPAY ==
[2024-04-29 11:09] LABS: Glucose - Point of Care 176 mg/dl (70-99)
[2024-04-29 11:49] LABS: Glucose - Point of Care 157 mg/dl (70-99)
[2024-05-01 10:53] LABS: Glucose - Point of Care 181 mg/dl (70-99)
[2024-05-01 11:47] LABS: Glucose - Point of Care 154 mg/dl (70-99)
[2024-05-08 10:54] LABS: Glucose - Point of Care 235 mg/dl (70-99)
[2024-05-08 11:54] LABS: Glucose - Point of Care 216 mg/dl (70-99)
[2024-05-13 11:01] LABS: Glucose - Point of Care 158 mg/dl (70-99)
[2024-05-13 11:55] LABS: Glucose - Point of Care 132 mg/dl (70-99)
[2024-05-15 10:58] LABS: Glucose - Point of Care 199 mg/dl (70-99)
[2024-05-15 11:51] LABS: Glucose - Point of Care 158 mg/dl (70-99)
== END 2024-05-22 23:59 | disposition home or self-care (01) ==
LOC: CRHB 11:10
PROVIDERS: ATTENDING PHYSICIAN Internal Medicine Interventional Cardiology; FAMILY PHYSICIAN Internal Medicine
DX: I25.10 Atherosclerotic heart disease of native coronary artery without angina pectoris (principal); Z95.1 Presence of aortocoronary bypass graft
CPT/HCPCS: 82962; G0422; G0423

== ENCOUNTER 2024-06-24 11:26 | Outpatient (RCR) | payer OTHER, SELFPAY | END 2024-06-24 23:59 | disposition home or self-care (01) | LOC: CRHB 11:26 | PROVIDERS: ATTENDING PHYSICIAN Internal Medicine Interventional Cardiology; FAMILY PHYSICIAN Internal Medicine | DX: Z95.1 Presence of aortocoronary bypass graft (principal) | CPT/HCPCS: G0422; G0423 ==

== ENCOUNTER 2024-07-24 12:08 | Outpatient (RCR) | payer OTHER, SELFPAY | END 2024-07-24 23:59 | disposition home or self-care (01) | LOC: CRHB 12:08 | PROVIDERS: ATTENDING PHYSICIAN Internal Medicine Interventional Cardiology; FAMILY PHYSICIAN Internal Medicine | DX: I25.10 Atherosclerotic heart disease of native coronary artery without angina pectoris (principal); Z95.1 Presence of aortocoronary bypass graft | CPT/HCPCS: G0422; G0423 ==

== ENCOUNTER 2024-08-07 11:29 | Outpatient (RCR) | payer OTHER, SELFPAY | END 2024-08-07 23:59 | disposition home or self-care (01) | LOC: CRHB 11:29 | PROVIDERS: ATTENDING PHYSICIAN Internal Medicine Interventional Cardiology; FAMILY PHYSICIAN Internal Medicine | DX: Z95.1 Presence of aortocoronary bypass graft (principal) | CPT/HCPCS: G0422; G0423 ==

== ENCOUNTER 2025-02-25 08:34 | Inpatient (IN) | payer OTHER, SELFPAY ==
[2025-02-24] VITALS (8 sets, daily range): BP systolic 136–155; BP diastolic 54–64; BMI 28.5; BMI 28.0
[2025-02-24 12:35] LABS: % Basophils 0.7 % (0-2); % Eosinophils 3.7 % (0-6); % Immature Granulocytes 0.4 % (0-0.5); % Lymphocytes 9.3 % (20.5-51.1); % Monocytes 11.6 % (1.7-9.3); % Neutrophils 74.3 % (42.2-75.2); Absolute Basophils 0.1 10^3/uL (0-0.2); Absolute Eosinophils 0.3 10^3/uL (0-0.7); Absolute Lymphocytes 0.7 10^3/uL (1.2-3.4); Absolute Monocytes 0.9 10^3/uL (0.1-0.6); Absolute Neutrophils 5.6 10^3/uL (1.4-6.5); Hematocrit 37.9 % (39.0-52.0); Hemoglobin 12.4 g/dL (13.0-18.0); Mean Corp Hgb Conc. 32.7 g/dL (33.0-37.0); Mean Corpuscular Hgb 28.7 pg (27.0-31.0); Mean Corpuscular Volume 87.7 fL (80.0-94.0); Mean Platelet Volume 10.5 fL (7.4-10.4); Nucleated Red Blood Cells % 0 % (-); Platelet Count 53 10^3/uL (130-400); Red Blood Cell Count 4.32 10^6/uL (4.70-6.10); Red Cell Dist. Width 16.8 % (11.5-14.5); White Blood Cell Count 7.5 10^3/uL (4.8-10.8)
[2025-02-24 12:44] LABS: ALT (SGPT) 22 U/L (0-50); AST (SGOT) 32 U/L (17-59); Albumin 4.6 g/dl (3.5-5.0); Alkaline Phosphatase 123 U/L (38-126); Blood Urea Nitrogen 22 mg/dl (9-20); Calcium 8.7 mg/dl (8.4-10.2); Carbon Dioxide 25 mmol/L (22-30); Chloride 107 mmol/L (98-107); Glucose 207 mg/dl (70-99); Potassium 4.4 mmol/L (3.5-5.1); Sodium 140 mmol/L (135-145); Total Protein 8.1 g/dl (6.3-8.2); eGFR > 60.00
--- NOTE | 2025-02-24 13:12 | ED.GENMED ---
History of Present Illness
General
Chief Complaint: Headache
Source: patient, records and spouse
Exam Limitations: none
Time Seen by Provider: 02/24/25 13:03
Nursing documentation reviewed up to this point in time: agreed with
History of Present Illness
History of Present Illness:
75-year-old male with a past medical history of TIA, hypertension, hyperlipidemia, CAD, diabetes who presents to the emergency department with his for evaluation of headache, vomiting, confusion. Patient reports that he has had headache for
the past 2 or 3 days and has been constant. says that he did not start to complain about the headache until last night. This morning headache persisted and was associated with nausea and 3 episodes of vomiting today. reports that he
also had some transient confusion where he could not remember her name. Brought to the emergency room for evaluation. Aside from headache and nausea patient also reports some mild blurry vision. He denies any neck pain or stiffness in the neck.
He denies any recent fever or chills. He has had a mild dry cough but no other viral symptoms�no diarrhea, congestion, sore throat, etc. He has not had any abdominal pain. He has not had any focal weakness or numbness, vision loss, dizziness,
speech difficulties. He denies any trauma or falls. He denies having had similar issues in the past.
Review of Systems
Review of Systems
All Other Systems: ROS reviewed and negative except as documented in HPI and ROS
Constitutional: Denies fever or chills
EENT: Denies sore throat or runny nose
Respiratory: Reports cough; Denies trouble breathing
Cardiac: Denies chest pain
ABD/GI: Reports nausea and vomiting; Denies abdominal pain or diarrhea
: Denies flank pain
Musculoskeletal: Denies neck pain or back pain
Neurological: Reports headache; Denies dizzy, weakness or numbness
Phy Exam
Physical Exam
Physical Exam:
General: Awake, alert, oriented x3 with a GCS of 15; no acute distress
Head: Normocephalic, atraumatic
Eyes: Conjunctiva normal, sclera anicteric, pupils equal round and reactive to light bilaterally, extraocular movements are intact with no nystagmus
Throat: Airway intact, handling secretions
Neck: Trachea midline, supple without meningismus, full range of motion without pain in the neck
Lungs: Clear to auscultation bilaterally, no wheezing, rales, rhonchi
Heart: Regular rate and rhythm, no murmurs, gallops, or rubs
Abd: Soft, non distended, nontender
Neuro: Cranial nerves intact 2 through 12, speech is fluid without dysarthria or aphasia, no limb ataxia, motor and sensory intact and symmetric in the upper and lower extremities
Skin: no rash
Extremities: No edema in extremities, equal pulses in all extremities
Scores
Heart Failure Risk
Heart Failure Risk Score: Not Applicable
Heart Score for Chest Pain Patients
STEMI patient?: Not applicable
Withdrawal Assessment of Alcohol
Withdrawal Assessment Completed?: Not applicable
Course
Orders/Labs/Results
Orders:
Orders
02/24/25 12:24
Complete Blood Count/With Diff Urgent
Comprehensive Metabolic Panel Urgent
02/24/25 13:03
CT Head W/o Iv Contrast Urgent
Comment:
Reason For Exam: headache, confused
02/24/25 13:10
Electrocardiogram (*1) Urgent
Reason for Study: QTc Monitoring
EKG- Treatment ONCE
02/24/25 13:19
0.9% Sodium Chloride 500 ml [Nss] 500 ml IV BOLUS
Acetaminophen [Tylenol] 1,000 mg PO NOW STA
Ondansetron Injectable [Zofran] 4 mg IV NOW STA
02/24/25 13:26
NEUROLOGY CONSULT Urgent
Consulting Provider: Joseph Pandey
Was physician already notified: Yes
02/24/25 13:42
COVID-19 Antigen Urgent
Source: Nasal Swab
CRP [C-Reactive Protein] Urgent
ESR [Erythrocyte Sed Rate] Urgent
TSH Reflex To Free T4 Urgent
Troponin I Urgent
Influenza A+B Rapid Molecular Urgent
DIONNE Source: Nasal Swab
Specimen Description:
Abnormal Lab Results
02/24/25
12:24
RBC 4.32 L 10^6/uL
(4.70-6.10)
Hgb 12.4 L g/dL
(13.0-18.0)
Hct 37.9 L %
(39.0-52.0)
MCHC 32.7 L g/dL
(33.0-37.0)
RDW 16.8 H %
(11.5-14.5)
Plt Count 53 L 10^3/uL
(130-400)
MPV 10.5 H fL
(7.4-10.4)
Absolute Lymphs (auto) 0.7 L 10^3/uL
(1.2-3.4)
Absolute Monos (auto) 0.9 H 10^3/uL
(0.1-0.6)
Lymphocytes % 9.3 L %
(20.5-51.1)
Monocytes % 11.6 H %
(1.7-9.3)
BUN 22 H mg/dl
(9-20)
Glucose 207 H mg/dl
(70-99)
02/24/25 12:24
02/24/25 12:24
Vital Signs
Initial and Last Documented VS:
Initial Vital Signs
Temp Pulse Resp BP Pulse Ox
36.6 C 78 16 154/64 97
02/24/25 12:17 02/24/25 12:17 02/24/25 12:17 02/24/25 12:17 02/24/25 12:17
Last Documented Vital Signs
Temp Pulse Resp BP Pulse Ox
36.6 C 78 16 154/64 97
06/02/25 12:17 02/24/25 12:17 02/24/25 12:17 02/24/25 12:17 02/24/25 12:17
MDM/Problems Addressed
Differential Diagnosis Includes:
Migraine, stroke/brain bleed, meningitis/encephalitis, tension headache, viral syndrome, temporal arteritis less likely
MDM/Problems Addressed:
75-year-old male presents for evaluation of headache for the past few days today associated with 3 episodes of vomiting and some transient confusion as well as some blurry vision. No falls or trauma. Hypertensive otherwise normal vitals. Physical
exam as above�does not appear markedly confused at present but says that he was extremely confused prior to arrival. Plan to place an IV send labs including a CBC and CMP. Check EKG and troponin. Send viral swabs. Stat CT head. Zofran for
nausea. Provide some fluids. Monitor closely reassess after the above.
CT reviewed by me in real-time�concern for brain mass right occipital region. Case discussed with neurology for consultation at bedside.
Case discussed with radiology�possible subacute infarct versus mass. Discussed with neurology will treat with aspirin and Plavix and admit to the hospitalist for continued workup. Case discussed with hospitalist for admission.
Acute Exacerbation and/or Progression of Chronic Illness:
Acutely hypertensive
Acute Exacerbation and/or Progression of Chronic Illness: HTN
*Radiology
Radiology exam reviewed: radiology read reviewed
*Pulse Oximetry
Patient hypoxic: no
*Critical Care Note
Total Time (30-74mins, 75-104mins- exclusive of procedures): Not Applicable
Data Reviewed
Source: patient, records and spouse
Patient Management
Discussion with other providers: Hospitalist (Discussed with hospitalist), D[employer] Farmer (Discussed with neurologist) and Radiologist (Discussed with radiologist)
Escalation/DeEscalation of care consider admission/obs:
Admission indicated
ED Attending Note
-
Portions of this chart may have been created with voice recognition software.� Occasional wrong word or��sound alike� substitutions may have occurred due to the inherent limitations of voice recognition software.
Discharge Plan
Departure
Patient Disposition: Admit
Date of Disposition: 02/24/25
Time of Disposition: 14:11
Admit to doctor: Renae
Presentation/result/management discussed w/ accepting MD/DO: Hospitalist
Discharge Problem:
CVA (cerebral vascular accident)
Prescriptions:
No Action
atorvastatin [Lipitor] 40 mg Tablet
40 mg PO QPM
citalopram [Celexa] 10 mg Tablet
10 mg PO DAILY
prochlorperazine maleate [Compazine] 10 mg Tablet
10 mg PO Q6H PRN (Reason: nausea)
pantoprazole [Protonix] 40 mg Tablet,Delayed Release (Dr/Ec)
40 mg PO DAILY
metformin 1,000 mg Tablet
1,000 mg PO BID
niacin 500 mg Tablet
500 mg PO BID
ascorbic acid (vitamin C) 1,500 mg Tablet
1 tab PO DAILY
aspirin 81 mg Tablet
81 mg PO DAILY
ezetimibe [Zetia] 10 mg Tablet
10 mg QPM
Janumet XR 100-1,000 mg Tablet, Er Multiphase 24 Hr
1 tab PO QPM
[id number]-fish oil 1,000-1,400 mg Capsule,Delayed Release(Dr/Ec)
1 cap PO BID
(DME) Contour Next Test Strips Strip
Qty: 60 0RF
Rx Instructions:
Pt Testing 2 times a day
(DME) lancets [Microlet Lancet] Misc
Qty: 60 0RF
Rx Instructions:
Pt testing 2 times a day
cyclobenzaprine 10 mg Tablet
5 mg PO Q8HPRN PRN (Reason: muscle spasm) Qty: 0 0RF
tamsulosin 0.4 mg Capsule
0.4 mg PO DAILY Qty: 0 0RF
Eliquis 5 mg Tablet
5 mg PO BID Qty: 0 0RF
amiodarone [Pacerone] 200 mg Tablet
200 mg PO BID 14 Days Qty: 28 0RF
metoprolol tartrate 100 mg tablet
150 mg PO Q12 Qty: 0 0RF
furosemide 40 mg Tablet
40 mg PO DAILY Qty: 60 0RF
acetaminophen 325 mg Tablet
650 mg PO Q4HPRN PRN (Reason: mild pain,headache,temp >101F ) Qty: 0 0RF
sennosides-docusate sodium [Stool Softener-Stimulant Laxat] 8.6-50 mg Tablet
1 tab PO Q12 Qty: 0 0RF
potassium chloride 20 mEq Tablet,Er Particles/Crystals
20 meq PO DAILY Qty: 0 0RF
magnesium oxide 500 mg magnesium Tablet
500 mg PO BID 30 Days Qty: 0 0RF
gabapentin 100 mg Capsule
100 mg PO TID PRN (Reason: post-op pain) Qty: 0 0RF
Jardiance 10 mg Tablet
10 mg PO DAILY Qty: 0 0RF
glimepiride 2 mg Tablet
4 mg PO DAILY Qty: 0 0RF
melatonin 5 mg Tablet
5 mg PO HSPRN PRN (Reason: insomnia) Qty: 0 0RF
amiodarone 200 mg tablet
200 mg PO DAILY Qty: 30 0RF
Rx Instructions:
start 14 days after discharge
Referrals:
Marycruz Kidd DO [Family Provider, Family Practice]
Interventions
Interventions:
*Risk Screen - Suicide Last Done: 02/24/25 12:19
*Neglect/Abuse Screening Last Done: 02/24/25 12:19
Discharge Date and Time
Print Language: OCCITAN
[2025-02-24] MEDS: TYLENOL 1000 MG PO (13:43)
[2025-02-24] MEDS: ZOFRAN 4 MG IV (13:43)
[2025-02-24] MEDS: NSS 500 IV (13:45)
[2025-02-24 14:00] LABS: COVID-19 Antigen Negative (Negative)
[2025-02-24 14:09] LABS: Erythrocyte Sed Rate 15 mm/hour (0-20)
[2025-02-24 14:16] LABS: Troponin I 0.166 ng/ml
[2025-02-24 14:33] LABS: TSH Reflex To Free T4 0.77 uIU/ml (0.47-4.68)
--- NOTE | 2025-02-24 14:33 | HPS.HSE ---
Family Physician
-
Family Physician: Marycruz Kidd
Chief Complaint
-
headache, vomiting, confusion
History of Present Illness
Patient is a 75-year-old male with past medical history significant for essential hypertension, hypercholesterolemia, NIDDM and ASCVD who presented to [facility] ED for evaluation of headache, vomiting and confusion. Patient and who is at bedside
supply information for HPI. Patient reports seeing primary care provider for intermittent nausea and vomiting for the past few weeks, he was prescribed Prilosec for potential GERD without improvement. He also reports that about a week ago he started
with intermittent episodes of blurry vision. Then for the past couple of days he has had intermittent headaches that did not improve with Tylenol or Motrin at home but would give enough relief for him to go to sleep. He would wake with severe
headache every time. Then today explains, she returned home from doing some errands and patient was significantly confused, he did not recognize her or recall her name, was unable to figure out how to use TV controller or his phone, he was also
complaining of blurred vision and severe headache so she brought him to ED for evaluation and workup. When questioned he does feelhe has had abnormal gait, feeling of being off blanace and decreased appetite past few days. Patient denies any recent
illness, fever, chills, cough, shortness of breath, chest pain, constipation, diarrhea or urinary symptoms.
Medical History
Past Medical History
Past Medical History: Reports Other
Additional Past Medical History:
essential hypertension
hypercholesterolemia
NIDDM
ASCVD
esophageal C/A treated with chemo, immuno and bio therapy @ [facility]
Prostate C/A-surveillance
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
Hx NSTEMI
Past Surgical History: Reports Other
Additional Past Surgical History:
cardiac stents 2003, 2006
left knee replacement and revision
R rotator cuff repair
B/L cataract extraction
loop recorder
left chest port
CABG x4
Social History
Tobacco: Non-smoker (quit in 1987)
Alcohol: Occasional
Drug: None
Personal:
Living: With Family
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
Family History
Family History: Other (Mother: ovariancancer; Father: PVD; Brother: colon cancer )
Allergies / Home Medications
Allergies reflects when Allergies were last updated in [facility].
Home Medications with original date entered in [facility]
Allergy/Medication List:
Allergies
Allergy/AdvReac Type Severity Reaction Status Date / Time
Iodinated Contrast Media Allergy Hives Verified 02/07/24 21:33
Home Medications
aspirin 81 mg tablet 81 mg PO DAILY Blood Clot Prevention/Tx 02/05/24
atorvastatin 40 mg tablet (Lipitor) 40 mg PO QPM High Cholesterol 02/05/24
ezetimibe 10 mg tablet (Zetia) 10 mg QPM High Cholesterol 02/05/24
sitagliptin phos 100 mg-metformin ER 1,000 mg tablet,extend rel 24h mp (Janumet XR) 1 tab PO QPM Diabetes 02/05/24
empagliflozin 10 mg tablet (Jardiance) 10 mg PO DAILY #0 tabs 02/14/24
ascorbic acid (vitamin C) 500 mg tablet (Vitamin C) 1,500 mg PO QPM 02/24/25
glimepiride 2 mg tablet 2 mg PO BID 02/24/25
ibuprofen 200 mg tablet (Advil) 400 mg PO TIDPRN PRN headache 02/24/25
metoprolol succinate 200 mg tablet,extended release 24 hr (Toprol XL) 200 mg PO DAILY 02/24/25
niacin 500 mg tablet,extended release 24 hr 500 mg PO BID 02/24/25
omega-3 fatty acids 2,000 mg PO BID 02/24/25
tamsulosin 0.4 mg capsule (Flomax) 0.4 mg PO HS 02/24/25
Review of Systems
-
History Source: Patient
EENT: Reports Other (blurry vision)
Abdomen/GI: Reports Nausea and Vomiting
Neurological: Reports Dizzy, Headache and Weakness
Physical Exam
Vital Signs
Vital Signs
Temp Pulse Resp BP Pulse Ox
97.8 F 78 16 154/64 97
02/24/25 12:17 02/24/25 12:17 02/24/25 12:17 02/24/25 12:17 02/24/25 12:17
Physical Exam
General: Well Developed, Well Nourished, No Apparent Distress, Comfortable, Conversant and Obese
HEENT: NormoCephalic, Moist mucous membranes, Atraumatic, PERRLA, [place] Conjunctivae, Nose Appears Normal and Ears Appear Normal
Respiratory: Clear and Non Labored Respirations
Cardiac: S1/S2 and Regular Rhythm
Breast: Deferred by me
GI: Soft, Non Tender, Non Distended and Normal Bowel Sounds
Rectal: Deferred by Provider
Genito-urinary: Deferred by me
Musculoskeletal: No Clubbing, No Cyanosis and No Edema
Skin: IV/Catheter Site
Neuro: Awake, Alert, AO x 3, No Motor Deficits, Nonfocal/grossly intact, Cranial Nerves Intact and No Sensory Deficits
Psych: Calm and Intact Judgment/Insight
Laboratory Results
-
02/24/25 12:24
02/24/25 12:24
Laboratory Results
Total Bilirubin 1.0 mg/dl (0.2-1.3) 02/24/25 12:24
AST 32 U/L (17-59) 02/24/25 12:24
ALT 22 U/L (0-50) 02/24/25 12:24
Alkaline Phosphatase 123 U/L (38-126) 02/24/25 12:24
Troponin I 0.166 ng/ml H* 02/24/25 13:42
Data Reviewed
-
CT Scan: Report Reviewed by me (Head: Probable subacute infarct of the right occipital lobe. A mass is less likely considering no signs of mass effect. Clinical correlation recommended. Small old left frontal lobe infarct.)
Medical Tests (Nuc Med, Echo, EKG etc): Report Reviewed by me (EKG: NORMAL SINUS RHYTHM)
Lab Data: Labs Reviewed by me (trop 0.166, CRP 20.30)
Impression/Plan
-
IMPRESSION/PLAN:
#nausea,vomiting, headache and confusion 2/2 subacute infarct vs. mass
EKG: NORMAL SINUS RHYTHM
Head CT: Probable subacute infarct of the right occipital lobe. A mass is less likely considering no signs of mass effect. Clinical correlation recommended.
Small old left frontal lobe infarct.
- Admit to telemetry
- Consult Neurology
- start Plavix
- continue aspirin
- Brain MRI
#essential hypertension
- continue metoprolol
#hypercholesterolemia
#ASCVD
- continue atorvastatin and ezetimibe
#Hx NSTEMI
s/p CABG x4
Trop 0.166
- denies chest pain
- trend troponin
#NIDDM
- continue Jardiance, glimepiride and Janumet
#esophageal C/A
s/p treated with chemo, immuno and bio therapy @ [place]
#Prostate C/A
continue to follow up out patient as indicated
#Hx R ocular CVA
Code status: full code
DVT prophylaxis: Lovenox sq
[2025-02-24] MEDS: ASPIRIN 325 MG PO (14:36)
[2025-02-24] MEDS: PLAVIX 75 MG PO (14:36)
--- NOTE | 2025-02-24 15:54 | W.PN.UPDATE ---
Update Note
Progress Note Update
This is an addendum to H&P written by Jamee Mancia on 02/24/2025.� Patient seen and examined independently with SAT INSTRUCTOR.
75-year-old male past medical history of TIA, hypertension, hyperlipidemia, CAD status post CABG, diabetes presenting for headache, vomiting and confusion and blurry vision for 2 weeks.� No symptoms currently.
Vital signs normal.
CT head shows probable subacute infarct in the right occipital lobe, mass is less likely.
Troponin 0.166.� EKG unremarkable.
Platelets of 53.
Likely CVA.� Aspirin and Plavix.� Check A1c and lipid panel.� MRI brain with and without contrast.� Neurology following.
Troponin elevation likely secondary to nonischemic myocardial injury as patient without any chest pain.� Trend troponins.
Platelets of 53 which appears to be known but progressed. Patient has�outpatient appointment with hematology.�
--- NOTE | 2025-02-24 16:10 | CM ---
Chart reviewed, CM met with pt and his bedside in ED. Lives with his in [address], [address], 1 story home. Denies needing any DME. Does have history of VN and also SNF stay at [facility]. Pt stated he has a history of esophageal
cancer and stroke.
PCP: Marycruz Kidd
Pharmacy: [facility]
Plan: Pending medical treatment plan/PT and OT assessment
[2025-02-24 17:20] LABS: Glucose - Point of Care 124 mg/dl (70-99)
[2025-02-24] MEDS: JANUVIA 100 MG PO (17:55)
[2025-02-24] MEDS: VITAMIN C 1500 MG PO (17:55)
[2025-02-24] MEDS: GLUCOPHAGE XR EXTENDED RELEASE 1000 MG PO (17:55)
[2025-02-24] MEDS: AMARYL 2 MG PO (17:55)
[2025-02-24] MEDS: ZETIA 10 MG PO (17:56)
[2025-02-24] MEDS: LIPITOR 40 MG PO (17:56)
--- NOTE | 2025-02-24 19:57 | CON.NEURO ---
Neuro Assessment/Plan
Assessment
Head CT images and report reviewed, right occipital hypodensity, per report 3.7 x 3.4 cm, irregular margins, favoring subacute infarct given no surrounding edema, no mass effect, recent negative PET scan
to my eye, the findings favoring mass it is mostly MCA territory but does not respect the typical MCA/PUBLIC RELATIONS ANALYST border; vomiting w/o nausea suggests compression of medullary vomiting centers, transient double vision also could be elevated ICP (6 nerve
palsy)
Apraxia, visual hallucinations would be typical symptoms for this localization in either case
all this discussed with patient and his
Plan
MRI brain w/o and w/ contrast
MRA head/neck
continue ASA 81, Lipitor 40
start Plavix x21 days for now
Consultation
Order
Date of Consultation: 02/24/25
Requesting Provider: Andrade Schulz
Reason for Consult: headache
Subjective/Objective
Subjective Data
Date of Service: February 24, 2025
from h&p:
Patient is a 75-year-old male with past medical history significant for essential hypertension, hypercholesterolemia, NIDDM and ASCVD who presented to [facility] ED for evaluation of headache, vomiting and confusion. Patient and who is at bedside
supply information for HPI. Patient reports seeing primary care provider for intermittent nausea and vomiting for the past few weeks, he was prescribed Prilosec for potential GERD without improvement. He also reports that about a week ago he started
with intermittent episodes of blurry vision. Then for the past couple of days he has had intermittent headaches that did not improve with Tylenol or Motrin at home but would give enough relief for him to go to sleep. He would wake with severe
headache every time. Then today explains, she returned home from doing some errands and patient was significantly confused, he did not recognize her or recall her name, was unable to figure out how to use TV controller or his phone, he was also
complaining of blurred vision and severe headache so she brought him to ED for evaluation and workup. When questioned he does feelhe has had abnormal gait, feeling of being off blanace and decreased appetite past few days. Patient denies any recent
illness, fever, chills, cough, shortness of breath, chest pain, constipation, diarrhea or urinary symptoms.
This afternoon he reported headaches are bifrontal, throbbing. +vomiting without nausea +intermittent double vision. +well formed visual hallucinations. h/o esophageal cancer, PET scan in December was negative
Objective Data
Vital Signs
Temp Pulse Resp BP Pulse Ox
37.2 C 84 20 140/64 98
02/24/25 16:58 02/24/25 16:58 02/24/25 16:58 02/24/25 16:58 02/24/25 16:58
Lab Results
02/24/25 12:24
02/24/25 12:24
Sodium 140 mmol/L (135-145) 02/24/25 12:24
Potassium 4.4 mmol/L (3.5-5.1) 02/24/25 12:24
BUN 22 mg/dl (9-20) H 02/24/25 12:24
Glucose 207 mg/dl (70-99) H 02/24/25 12:24
Calcium 8.7 mg/dl (8.4-10.2) 02/24/25 12:24
Patient Allergies
Iodinated Contrast Media Allergy (Verified 02/07/24 21:33)
Hives
Physical Exam
-
AAOx3, speech clear, language intact
VFF, EOMI, face symmetric
full strength b/l UE/LE,
sensation intact to touch/pin
Medications
-
Active Medications
Generic Name Dose Route Start Last Admin
Trade Name Freq PRN Reason Stop Dose Admin
Acetaminophen 650 mg 02/24/25 16:30
Acetaminophen 325 Mg Tablet PO 03/24/25 16:29
Q4HPRN PRN
SIMPSON, mild pain, or temp >100.4F
Ascorbic Acid 1,500 mg 02/24/25 18:00 02/24/25 17:55
Ascorbic Acid 500 Mg Tablet PO 03/24/25 17:59 1,500 mg
QPM ANGELO Administration
Aspirin 81 mg 02/25/25 08:00
Aspirin 81 Mg (Enteric Coated) Tablet PO 03/25/25 07:59
DAILY ANGLEO
Atorvastatin Calcium 40 mg 02/24/25 18:00 02/24/25 17:56
Atorvastatin (Lipitor) 40 Mg Tablet PO 03/24/25 17:59 40 mg
QPM ANGELO Administration
Clopidogrel Bisulfate 75 mg 02/25/25 08:00
Clopidogrel 75 Mg Tablet PO 03/25/25 07:59
DAILY ANGELO
Dapagliflozin 10 mg 02/25/25 08:00
Dapagliflozin (Farxiga) 10 Mg Tablet PO 03/25/25 07:59
DAILY ANGELO
Ezetimibe 10 mg 02/24/25 18:00 02/24/25 17:56
Ezetimibe (Zetia) 10 Mg Tablet PO 03/24/25 17:59 10 mg
QPM ANGELO Administration
Glimepiride 2 mg 02/24/25 17:00 02/24/25 17:55
Glimepiride 2 Mg Tablet PO 03/24/25 16:59 2 mg
BID AT 0800,1700 ANGELO Administration
Metformin HCl 1,000 mg 02/24/25 18:00 02/24/25 17:55
Metformin 500 Mg Extended Release Tablet PO 03/24/25 17:59 1,000 mg
QPM ANGELO Administration
Metoprolol Succinate 200 mg 02/25/25 08:00
Metoprolol 100 Mg Extended Release Tablet PO 03/25/25 07:59
DAILY ANGELO
Niacin 500 mg 02/24/25 20:00
Niacin 250 Mg Time Release Tablet PO 03/24/25 19:59
BID ANGELO
Sitagliptin Phosphate 100 mg 02/24/25 18:00 02/24/25 17:55
Sitagliptin (Januvia) 100 Mg Tablet PO 03/24/25 17:59 100 mg
QPM ANGELO Administration
Sodium Chloride 0 flush 02/24/25 17:00
Sodium Chloride 0.9% (Flush) Syringe IV 03/24/25 16:59
PER PROTOCOL ANGELO
Tamsulosin HCl 0.4 mg 02/24/25 22:00
Tamsulosin 0.4 Mg Capsule PO 03/24/25 21:59
HS ANGELO
Home Medications
�Medication �Instructions �Recorded
aspirin 81 mg tablet 81 mg PO DAILY Blood Clot 02/05/24
Prevention/Tx
atorvastatin 40 mg tablet (Lipitor) 40 mg PO QPM High Cholesterol 02/05/24
ezetimibe 10 mg tablet (Zetia) 10 mg QPM High Cholesterol 02/05/24
sitagliptin phos 100 mg-metformin 1 tab PO QPM Diabetes 02/05/24
ER 1,000 mg tablet,extend rel 24h
mp (Janumet XR)
empagliflozin 10 mg tablet 10 mg PO DAILY #0 tabs 02/14/24
(Jardiance)
ascorbic acid (vitamin C) 500 mg 1,500 mg PO QPM 02/24/25
tablet (Vitamin C)
glimepiride 2 mg tablet 2 mg PO BID 02/24/25
ibuprofen 200 mg tablet (Advil) 400 mg PO TIDPRN PRN headache 02/24/25
metoprolol succinate 200 mg 200 mg PO DAILY 02/24/25
tablet,extended release 24 hr
(Toprol XL)
niacin 500 mg tablet,extended 500 mg PO BID 02/24/25
release 24 hr
omega-3 fatty acids 2,000 mg PO BID 02/24/25
tamsulosin 0.4 mg capsule (Flomax) 0.4 mg PO HS 02/24/25
[2025-02-24 20:18] LABS: Urine Albumin 2+ (Neg - Trace); Urine Bilirubin Negative (Negative); Urine Character Clear (Clear); Urine Color Yellow; Urine Glucose 4+ (Negative); Urine Ketone 2+ (Negative); Urine Leukocyte Negative (Negative); Urine Nitrite Negative (Negative); Urine Occult Blood Negative (Negative); Urine Urobilinogen Negative (Neg - 1+)
[2025-02-24 20:37] LABS: Urine Bacteria Few (Negative); Urine Red Blood Cell 0-2 /HPF (0-2); Urine Squamous Cell 0-2 /LPF (Few); Urine White Cell 0-2 /HPF (0-5)
[2025-02-24] MEDS: NIASPAN TIME RELEASE 500 MG PO (20:54)
[2025-02-24] MEDS: FLOMAX 0.4 MG PO (20:57)
[2025-02-24 21:27] LABS: Glucose - Point of Care 142 mg/dl (70-99)
[2025-02-25] VITALS (17 sets, daily range): BP systolic 121–160; BP diastolic 53–92; PULSE 101–103; O2SAT 97–99; BMI 27.7
[2025-02-25] MEDS: TYLENOL 650 MG PO (01:06)
[2025-02-25 01:45] LABS: Troponin I 0.159 ng/ml
[2025-02-25 07:53] LABS: Hematocrit 36.8 % (39.0-52.0); Mean Corp Hgb Conc. 32.6 g/dL (33.0-37.0); Platelet Count 50 10^3/uL (130-400); Red Blood Cell Count 4.28 10^6/uL (4.70-6.10); Red Cell Dist. Width 16.6 % (11.5-14.5); White Blood Cell Count 7.3 10^3/uL (4.8-10.8)
[2025-02-25 08:02] LABS: Glucose - Point of Care 150 mg/dl (70-99)
[2025-02-25 08:07] LABS: Troponin I 0.158 ng/ml
[2025-02-25 09:22] LABS: HDL Cholesterol 35 mg/dl; LDL Cholesterol, Calculated 71 mg/dl; Total Cholesterol 131 mg/dl (50-199); Triglyceride 127 mg/dl (10-149); Very Low Density Lipoprotein 25 mg/dl (0-30)
[2025-02-25] MEDS: ATIVAN 1 MG IV (09:28)
[2025-02-25 09:37] LABS: Glycohemoglobin (HgbA1c) 5.9 % (4.0-5.6)
[2025-02-25] MEDS: PLAVIX 75 MG PO (11:23)
[2025-02-25] MEDS: TOPROL XL 200 MG PO (11:23)
[2025-02-25] MEDS: AMARYL PO (11:23)
[2025-02-25] MEDS: ASPIR LOW (ENTERIC COATED) 81 MG PO (11:23)
[2025-02-25] MEDS: FARXIGA 10 MG PO (11:24)
[2025-02-25] MEDS: NIASPAN TIME RELEASE 500 MG PO ×2 (11:24→19:42)
[2025-02-25] MEDS: NSS (PRESERVATIVE FREE) 0.5 ML IV (11:24)
[2025-02-25 12:14] LABS: Glucose - Point of Care 165 mg/dl (70-99)
--- NOTE | 2025-02-25 12:16 | CM ---
Addendum entered by Brie Maldonado 02/25/25 12:21:
Patient is inpatient, will review with patient.
Original Note:
Chart reviewed and will await PT/OT evaluations and recommendations.
Plan; Await PT/OT evaluations.
--- NOTE | 2025-02-25 14:18 | CON.INTV ---
Addendum entered and electronically signed by Pauline Anderson MD 02/25/25 16:44:
f/u labs showed Na of 137.
3% NS bolus 100 ml X 1. Recheck and give additional 35 NS as needed. Target Na 145 or above.
Original Note:
Consultation
Consultation Request
Date/Time Consultation Requested: 02/25/2025
Date/Time Consultation Performed: 02/25/2025
Requesting Provider: Sachin West
Performing Provider: Pauline Anderson
Reason for Consultation: Stroke/ICH
Medical History
-
Chief Complaint: Headache, nausea and vomiting.
History of Present Illness:
Patient is a very pleasant 75-year-old gentleman with known history of hypertension, hyperlipidemia, coronary artery disease s/p coronary artery bypass graft was reporting more than a week long presentation with mild headache, vomiting as well as
sense of imbalance. Patient also reported having episodes of blurry vision. On the day of admission, reportedly patient had episode of confusion where he could not recognize his or recall her name in addition to having blurry vision and
headache. He was brought to the emergency room for further workup. Stroke alert was initiated and a CT scan was performed which was concerning for possible subacute occipital stroke. Patient was started on Plavix in addition to aspirin and
subsequently had an MRI done today. MRI and MRA showed hemorrhagic transformation along with a large area of stroke with hemorrhagic conversion in the right occipital area with cytotoxic edema and sulcal effacement. In view of these changes,
patient was transferred to ICU for close monitoring. Atmospheric Physicist consultation was requested for further input.
Past Medical History: Reports Other
Additional Past Medical History:
essential hypertension
hypercholesterolemia
NIDDM
ASCVD
esophageal C/A treated with chemo, immuno and bio therapy @ [facility]
Prostate C/A-surveillance
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
Hx NSTEMI
Past Surgical History: Reports Other
Additional Past Surgical History:
cardiac stents 2003, 2006
left knee replacement and revision
R rotator cuff repair
B/L cataract extraction
loop recorder
left chest port
CABG x4
Social History
Tobacco: Non-smoker (quit in 1987)
Alcohol: Occasional
Drug: None
Personal:
Living: With Family
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
Family History
Family History: Other (Mother: ovariancancer; Father: PVD; Brother: colon cancer )
Allergies / Home Medications
Allergies / Home Medications
Allergies
Allergy/AdvReac Type Severity Reaction Status Date / Time
Iodinated Contrast Media Allergy Hives Verified 02/07/24 21:33
Home Medications
�Medication �Instructions �Recorded �Confirmed �Last Taken �Type
aspirin 81 mg tablet 81 mg PO DAILY Blood Clot 02/05/24 02/24/25 02/23/25 History
Prevention/Tx
atorvastatin 40 mg tablet (Lipitor) 40 mg PO QPM High Cholesterol 02/05/24 02/24/25 02/23/25 History
ezetimibe 10 mg tablet (Zetia) 10 mg QPM High Cholesterol 02/05/24 02/24/25 02/23/25 History
sitagliptin phos 100 mg-metformin 1 tab PO QPM Diabetes 02/05/24 02/24/25 02/23/25 History
ER 1,000 mg tablet,extend rel 24h
mp (Janumet XR)
empagliflozin 10 mg tablet 10 mg PO DAILY #0 tabs 02/14/24 02/24/25 02/23/25 Rx
(Jardiance)
ascorbic acid (vitamin C) 500 mg 1,500 mg PO QPM Supplement 02/24/25 02/24/25 02/23/25 History
tablet (Vitamin C)
glimepiride 2 mg tablet 2 mg PO BID Diabetes 02/24/25 02/24/25 02/23/25 History
ibuprofen 200 mg tablet (Advil) 400 mg PO TIDPRN PRN headache 02/24/25 02/24/25 02/23/25 History
metoprolol succinate 200 mg 200 mg PO DAILY Blood Pressure 02/24/25 02/24/25 02/23/25 History
tablet,extended release 24 hr
(Toprol XL)
niacin 500 mg tablet,extended 500 mg PO BID High Cholesterol 02/24/25 02/24/25 02/23/25 History
release 24 hr
omega-3 fatty acids 2,000 mg PO BID Supplement 02/24/25 02/24/25 02/23/25 History
tamsulosin 0.4 mg capsule (Flomax) 0.4 mg PO HS Urinary Issue 02/24/25 02/24/25 02/23/25 History
Review of Systems
-
Hematologic/Lymphatic: Other (All 14 systems reviewed and negative except as stated above in the history of present illness.)
Vitals / Labs / Diagnostic Testing
Vital Signs
Temp Pulse Resp BP Pulse Ox
97.5 F 104 18 159/67 95
02/25/25 11:05 02/25/25 11:05 02/25/25 11:05 02/25/25 11:05 02/25/25 11:05
Lab Data
02/25/25 07:07
02/24/25 12:24
Microbiology
02/24/25 13:42 Nasal Swab Influenza Types A & B (NORIS) - Final
Negative for Influenza A & B, NAAT
Negative results must be combined with clinical observations
and patient history.
Nucleic Acid Amplification test (NAAT)performed on the
[employer] platform.
Diagnostic Testing:
Physical Exam
-
HEENT: Normocephalic
Cardiovascular: S1/S2
Respiratory: Clear and Non-Labored Respirations
GI: Soft and Non Distended
Neurology: Awake, Alert and Oriented
Skin: Warm
General: Comfortable and Other (Neuroexam appears to be nonfocal. Mild nausea, improving per patient. Double vision has improved.)
Assessment
-
#1. Multiple acute and subacute ischemic infarcts with hemorrhagic conversion.
- Particularly concerning is large 5.9 cm transcortical hemorrhagic infarct in the right occipital lobe with cytotoxic edema and mass effect with sulcal effacement
- With patient having nausea, concerning for increased intracranial pressure
- Check stat BMP, target sodium 145 or above
- Monitor closely in the ICU, every hour neurochecks
- Patient at risk of requiring craniectomy, discussed with neurology service. Patient best served at a tertiary care center with neuro intensive care and ability to monitor intracranial pressure closely. Primary team in touch with [facility] neuro
ICU for potential transfer. Stat follow-up CT head requested.
- Plavix has been stopped. Platelet count noted to be 50,000, discontinue aspirin. Hold off platelet transfusion for now. If platelet count drops any further, we will reconsider transfusion, particularly in the setting of intracranial hemorrhage
- Target normothermia, avoid fever, avoid hypoglycemia.
- Cardene infusion, target SBP 120-140 per discussion with Neurology service.
- Multiple locations of infarct, concerning for underlying embolic disease. Continue telemetry monitoring
#2. History of atrial fibrillation, perioperative, CABG in 01/2024
- Patient had paroxysmal atrial fibrillation post coronary artery bypass graft and was discharged on Eliquis
- It was felt to be perioperative and subsequently patient was switched to aspirin
#3. H/o CAD, s/p CABG 01/2024
- ASA on hold
- Statins, Metoprolol
Other medical diagnoses:
- H/o Esophageal CA
- H/o Prostate CA
- HTN, HLD
- NIDDM
SCDs for DVT prophylaxis
Discussed with primary team as well as neurology service.
Critical Care time 68 mins -- The patient is admitted for acute critical illness for the treatment of vital organ failure and/or prevention of further life-threatening conditions. Total care includes time spent in review of history, physical exam,
medications, hemodynamic/ventilator parameters, laboratory data, imaging and discussion with house staff, pharmacy, respiratory therapy, appointment coordinator, and nursing.
Data:
MRI Brain 02/2025: 1. MULTIPLE ACUTE and SUBACUTE ISCHEMIC and HEMORRHAGIC TRANSCORTICAL and CORTICAL DOMINGUEZ MATTER INFARCTS in both the anterior and posterior intracranial circulation consistent with EMBOLIC DISEASE.
2. LARGE 5.9 cm ACUTE TRANSCORTICAL HEMORRHAGIC INFARCT in the RIGHT OCCIPITAL LOBE.
3. 1.2 cm acute transcortical hemorrhagic infarct in the posterior left occipital lobe.
4. Subacute infarcts in the posterior right parietal lobe.
5. Subacute transcortical infarct in the lateral left frontal lobe.
6. Many other small cortical dominguez matter infarcts.
7. Mild diffuse cerebral and cerebellar volume loss.
MRA Head 02/2025: 1. Moderate calcific atherosclerotic plaque in both intracranial internal carotid arteries.
2. 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
3. Severe hypoplasia of the P1 segment of the right posterior cerebral artery.
4. Large right and moderate size left posterior communicating arteries.
5. LARGE ACUTE TRANSCORTICAL INFARCT in the RIGHT OCCIPITAL LOBE containing cytotoxic edema.
MRA Neck 02/2025: 1. 50-70% diameter stenosis in the PROXIMAL RIGHT INTERNAL CAROTID ARTERY secondary to a large amount of atherosclerotic plaque located along the posterior wall.
2. Less than 50% diameter stenosis in the proximal left internal carotid artery.
3. Less than 50% diameter stenosis in the cervical segment of the right vertebral artery.
CT Head 02/2025: Probable subacute infarct of the right occipital lobe. A mass is less likely considering no signs of mass effect. Clinical correlation recommended.
Small old left frontal lobe infarct.
In accordance with Act 112, known as the Patient Test Results Information Act, a letter will be sent to the patient which notifies the patient that a significant abnormality may exist. The letter will be sent within approximately 20 days of the
date the results were sent to the ordering health care practitioner.
PONCHO 01/2024: Normal left ventricular size and systolic function, no regional wall motion
abnormalities seen. Stage I diastolic dysfunction.
Mild to moderate mitral regurgitation.
Mild to moderate aortic regurgitation.
Moderate left atrial enlargement. No thrombus or mass seen in the left atrial appendage.
The aorta has atheroma less than 5 mm and mild calcifications.
Mild left pleural effusion.
ECHO 01/2024: Normal left ventricular size, wall thickness and systolic function.
No regional wall motion abnormalities are seen.
LV ejection fraction is 55-60% by visual assessment.
Normal right ventricular size and function.
Mild aortic regurgitation.
Compared to prior from October 07, 2022, aortic regurgitation is mild from
trace.
--- NOTE | 2025-02-25 14:22 | W.PN.NEURO.1 ---
Today's Communication / Plan
-
d/c Aspirin/plavix
to ICU for q1 neurochecks, ideally transfer out to hospital with neurosurgery ICU service, agrees to [place], due to driving distance
Neuro Assessment/Plan
Assessment
Head CT images and report reviewed, right occipital hypodensity, per report 3.7 x 3.4 cm, irregular margins, favoring subacute infarct given no surrounding edema, no mass effect, recent negative PET scan
Apraxia, visual hallucinations would be typical symptoms for this localization in either case
brain MRI imgs rev'd with patient and - large acute ischemic to hemorrhagic transformed stroke right occipital, with several smaller infarcts, some of with small amount of hemorrhage.
the most immediate concern is that he's showing clinical signs of elevated ICP, and with occipital infarct/hemorrhage/edema, the bleed unsure if active as this is first scan, edema usually peaks ~5 days, he would ideally be transferred to somewhere
with neurosurgery ICU service for q1 hr craniotomy watch if condition worsens.
suspected (cardio)embolic etiology of original strokes with hemorrhagic transform; high risk for more bleeding as well as more emboli; presently believe that bleed risk predominates. platelets 50, will d/c aspirin/plavix
premorbid no disability, and if he doesn't take any more strokes/bleeding I'm hopeful for good recovery
all this discussed with patient and his
Plan
d/c Aspirin/plavix
to ICU for q1 neurochecks, ideally transfer out to hospital with neurosurgery ICU service, agrees to [place], due to driving distance
Subjective/Objective
Subjective Data
Date of Service: February 25, 2025
reports that he remains confused
patient reporting continued episodes of vomiting, sometimes without nausea
headache, worse when he coughs
no double vision today
Objective Data
Vital Signs
Temp Pulse Resp BP Pulse Ox
36.4 C 104 18 159/67 95
02/25/25 11:05 02/25/25 11:05 02/25/25 11:05 02/25/25 11:05 02/25/25 11:05
Lab Results
02/25/25 07:07
02/24/25 12:24
Sodium 140 mmol/L (135-145) 02/24/25 12:24
Potassium 4.4 mmol/L (3.5-5.1) 02/24/25 12:24
BUN 22 mg/dl (9-20) H 02/24/25 12:24
Glucose 207 mg/dl (70-99) H 02/24/25 12:24
Calcium 8.7 mg/dl (8.4-10.2) 02/24/25 12:24
LDL Cholesterol, Calc 71 mg/dl 02/25/25 07:07
Patient Allergies
Iodinated Contrast Media Allergy (Verified 02/07/24 21:33)
Hives
[2025-02-25 14:28] LABS: Glucose - Point of Care 203 mg/dl (70-99)
[2025-02-25] MEDS: CARDENE 200 IV (14:50)
--- NOTE | 2025-02-25 14:51 | PTOTSP ---
MANAGER NEWS Evaluation
At least mild aphasia (Quick Aphasia Battery score =7.60) with receptive/expressive language impairments, relatively intact repetition, and impaired reading (though suspect impacted by changes to left attention/vision). Patient aware of most
language deficits (i.e., aware of anomia, aware of blurry vision but not aware of errors with reading). Further evaluation warranted as able/appropriate.
Recommend:
1. Continued evaluation/tx of language and cognition. Therapy warranted after D/C at this time.
2. Swallowing evaluation as able/appropriate.
--- NOTE | 2025-02-25 15:01 | W.PN.HOSP.TC ---
Today's Communication/Plan
-
ICU monitoring
Total Critical Care Time__55___ minutes. I was immediately available to the patient and staff. I personally examined, reviewed labs, diagnostic images/reports, interpretations, treatment plans, discussed patient care with other providers and
family or caregivers (if patient is unable to make decisions), entered orders as appropriate and documented the medical record.
Assessment / Plan
Assessment / Plan
Impression:
Presentation with nausea, vomiting, headache and confusion
Embolic CVA with hemorrhagic transformation
Thrombocytopenia
Other conditions:
CAD,
History of non-STEMI.
Status post CABG
History of right ocular CVA
Postoperative atrial fibrillation. Not on anticoagulation prior to presentation.
Esophageal carcinoma treated with chemotherapy and Biologics at [facility].
History of prostate carcinoma.
Type 2 diabetes [id number].
Plan:
Presentation with persistent nausea, vomiting without relief, headache and periodic confusion
Exam with no focal findings otherwise.
CT head on admission with subacute infarct in the right occipital lobe. No evidence for mass effect.
MRI
1. MULTIPLE ACUTE and SUBACUTE ISCHEMIC and HEMORRHAGIC TRANSCORTICAL and CORTICAL DOMINGUEZ MATTER INFARCTS in both the anterior and posterior intracranial circulation consistent with EMBOLIC DISEASE.
2. LARGE 5.9 cm ACUTE TRANSCORTICAL HEMORRHAGIC INFARCT in the RIGHT OCCIPITAL LOBE.
3. 1.2 cm acute transcortical hemorrhagic infarct in the posterior left occipital lobe.
4. Subacute infarcts in the posterior right parietal lobe.
5. Subacute transcortical infarct in the lateral left frontal lobe.
6. Many other small cortical dominguez matter infarcts.
7. Mild diffuse cerebral and cerebellar volume loss.
Embolic CVA with particularly right occipital lobe focus with concern for hemorrhagic transformation and mass effect.
Currently in sinus rhythm, although has a history of postoperative A-fib and anticoagulation for 2 months after CABG in 2023. Not on anticoagulation prior to presentation
Discussed with neurology and soda dispenser.
Plan is to monitor in ICU.
Serial neurologic checks.
Echo
Continue telemetry monitoring
Consider cardiology evaluation and PONCHO
Stop aspirin and Plavix.
Monitor platelet count. There is no consistent data of improved outcome with platelet transfusion in current situation unless further drop.
Strict blood pressure control with goal SBP below 140 mmHg. Initiated on nicardipine drip.
[facility]. Patient with stable neurologic status with no focal findings although persistently symptomatic with nausea vomiting and headache. Suggested to repeat CT scan and assess amount of hemorrhage in the right occipital
lobe. If follow-up study with no evidence of cerebral edema or hematoma, they would suggest close monitoring with no requirements for NICU level of care.
Cardiovascular.
CAD status post CABG.
Essential hypertension.
On aspirin prior to presentation currently held due to CVA with hemorrhagic conversion.
Continue metoprolol.
Continue statin and Zetia.
NIDDM.
Continue Farxiga.
Hold glimepiride, metformin, Januvia acutely.
Basal bolus protocol with serial Accu-Cheks and strict blood glucose monitoring. Watch for persistent hyperglycemia in the settings of acute CVA.
Anticipated Discharge: > 48 hours
Subjective/Interval History
-
Date of Service: February 25, 2025
Objective Data
-
Labs:
Laboratory Results
02/25/25 02/25/25
07:07 14:46
WBC 7.3
Hgb 12.0 L
Hct 36.8 L
Plt Count 50 L
PT Pending
INR Pending
APTT Pending
Sodium Pending
Potassium Pending
Chloride Pending
Carbon Dioxide Pending
BUN Pending
Creatinine Pending
Glucose Pending
Calcium Pending
Vital Signs:
Vital Signs
Temp Pulse Resp BP Pulse Ox
97.5 F 104 18 159/67 95
02/25/25 11:05 02/25/25 11:05 02/25/25 11:05 02/25/25 11:05 02/25/25 11:05
I&O
02/24/25 02/25/25 02/26/25
06:59 06:59 06:59
Intake Total 240 / 240 480 / 480
Output Total 650 / 650
Balance -410 / -410 480 / 480
Physical Exam
-
General: Well Developed and No Apparent Distress
HEENT: Normocephalic, Atraumatic and Moist Mucous Membranes
Respiratory: Clear to Auscultation
Cardiac: Regular Rhythm and S1/S2; Negative Murmur, Rub or Gallop
GI: Soft, Nontender, Nondistended and Normal Bowel Sounds; Negative Organomegaly
Rectal: Deferred by Provider
Musculoskeletal: No Clubbing, No Cyanosis and No Edema
Skin: Negative Rash
Neuro: Nonfocal/Grossly Intact
[2025-02-25 15:02] LABS: APTT 29.1 Sec (23.4-35.0); INR 1.33; PT 16.8 Sec (11.4-14.6)
[2025-02-25 15:13] LABS: Blood Urea Nitrogen 18 mg/dl (9-20); Calcium 8.6 mg/dl (8.4-10.2); Carbon Dioxide 22 mmol/L (22-30); Chloride 105 mmol/L (98-107); Estimated Creatinine Clearance 75 ml/min; Glucose 199 mg/dl (70-99); Potassium 4.6 mmol/L (3.5-5.1); Sodium 137 mmol/L (135-145); eGFR > 60.00
[2025-02-25] MEDS: SODIUM CHLORIDE 3% 100 IV (17:01)
[2025-02-25 17:10] LABS: Glucose - Point of Care 174 mg/dl (70-99)
--- NOTE | 2025-02-25 17:16 | W.PN.UPDATE ---
Update Note
Progress Note Update
Remains neurologically stable while in ICU with persistent headache nausea, although with no focal findings on neurologic exam.
Repeated CT scan of the head without contrast findings consistent with right occipital lobe hemorrhagic infarct. Stable from MRI examination performed earlier today.
Initiated on nicardipine drip for tight blood pressure control
Initiated on hypertonic solution
Discussed with neuro ICU at [facility].
Patient accepted for transfer for closer monitoring and neurosurgical intervention if required.
[2025-02-25] MEDS: ZETIA 10 MG PO (17:17)
[2025-02-25] MEDS: LIPITOR 40 MG PO (17:18)
[2025-02-25] MEDS: VITAMIN C 1500 MG PO (17:18)
[2025-02-25] MEDS: NOVOLOG FLEXPEN-LOW RESISTANCE 1 UNITS SC (17:42)
--- NOTE | 2025-02-25 20:00 | PTCARENOTE ---
Received pt at shift change; AAOx3, pleasant and smiling, reports improvement in his frontal SIMPSON, 4/10 pain, slow to respond @ times, repetitive @ times. NIH=2, mild hemianopia and expressive aphasia, unchanged from previous assessment, see flowsheet
for details. Cardene infusing @ 5mg/hr, SBP within range per order. NSR on the monitor, SpO2 95% on RA, lungs clear. Pt reports dry heaves earlier today but denies nausea at this time. Pt due for transfer to [facility] Neuro ICU, updated on
pickers material handlers time ~ 2100, attempted to call with an update but no answer. Pt resting comfortably in bed, offers no complaints at this time, up to date on POC, call [place] within reach, safe environment maintained.
--- NOTE | 2025-02-25 20:37 | PTCARENOTE ---
[facility] transport arrived for pt, report called to [facility] by mara RN; report given to transport crew, final vital signs taken and documented. Pt transported with 2 belongings bags of clothes and cell phone. Updated provided to pt's ,
Janeth.
--- NOTE | 2025-02-26 08:24 | CM ---
Patient was discharged to [facility] Neuro ICU on 02/25/25.
== END 2025-02-25 20:34 | disposition short-term general hospital (02) | DRG 64 ==
LOC: ICU 08:34
PROVIDERS: Emergency Medicine; Nurse Practitioner Family; ADMITTING PHYSICIAN Hospitalist; ATTENDING PHYSICIAN Internal Medicine; CONSULT PHYSICIAN Internal Medicine; CONSULT PHYSICIAN Psychiatry & Neurology Clinical Neurophysiology; EMERGENCY PHYSICIAN Emergency Medicine; FAMILY PHYSICIAN Family Medicine
DX: I63.40 Cerebral infarction due to embolism of unspecified cerebral artery (principal); I61.9 Nontraumatic intracerebral hemorrhage, unspecified; Z85.46 Personal history of malignant neoplasm of prostate; I25.10 Atherosclerotic heart disease of native coronary artery without angina pectoris; Z95.1 Presence of aortocoronary bypass graft; I10 Essential (primary) hypertension; Z79.84 Long term (current) use of oral hypoglycemic drugs; E11.9 Type 2 diabetes mellitus without complications; E78.00 Pure hypercholesterolemia, unspecified; Z86.73 Personal history of transient ischemic attack (TIA), and cerebral infarction without residual deficits; I25.2 Old myocardial infarction; Z95.5 Presence of coronary angioplasty implant and graft; Z96.652 Presence of left artificial knee joint; Z98.42 Cataract extraction status, left eye; Z92.21 Personal history of antineoplastic chemotherapy; Z87.891 Personal history of nicotine dependence; Z80.0 Family history of malignant neoplasm of digestive organs; Z82.49 Family history of ischemic heart disease and other diseases of the circulatory system; Z91.041 Radiographic dye allergy status; Z79.82 Long term (current) use of aspirin; I48.0 Paroxysmal atrial fibrillation; Z85.01 Personal history of malignant neoplasm of esophagus; Z11.52 Encounter for screening for COVID-19
CPT/HCPCS: 70450; 70544; 70548; 70553; 80048; 80053; 80061; 81003; 81015; 82962; 83036; 84443; 84484; 85025; 85027; 85610; 85652; 85730; 86140; 87502; 87811; 92523; 93005; 93306; 96361; 96374; 97163; 97166; 99285; A9585